=== PATIENT | female | born 1965 | race Caucasian/White ===

== ENCOUNTER → 2019-02-10 06:34 | Outpatient (CLI) | payer OTHER, SELFPAY ==
[2019-02-09 16:17] VITALS: BMI 21.6
--- NOTE | 2019-02-10 06:44 | RAD_ITS ---
STUDY: X-RAY CHEST REASON FOR EXAM: Female, 53 years old. Preheart catheter. TECHNIQUE: PA and lateral views of the chest. COMPARISON: Comparison is made with prior examination dated October 06, 2017. FINDINGS: Hyperinflation. The lungs are clear. There is no demonstrated pleural abnormality. Normal size heart. Normal mediastinum and tad. Normal visualized pulmonary arteries. Normal visualized aortic arch and descending thoracic aorta. Normal visualized thoracic spine. Normal visualized ribs, clavicles, and shoulders. There is no demonstrated abnormality of the visualized soft tissue structures of the upper abdomen. RAD/Chest PA and Lateral IMPRESSION: Hyperinflation. The lungs are clear. Electronically Signed: Terence Reich, at 14:27 EDT , Service support ,
[2019-02-10 07:08] LABS: Absolute Lymphocyte Count 1.98 X10^3/ul (0.83-4.51); Absolute Neutrophil Count 3.1 X10^3/uL (2.0-7.7); Basophil# 0.05 X10^3/uL; Basophil% 0.9 % (0-1); Eosinophil# 0.21 X10^3/uL; Eosinophils% 3.6 % (0-5); Hematocrit 41.7 % (37-47); Hemoglobin 14.1 g/dl (12.0-15.0); Lymphocyte # 1.98 X10^3/ul (4.0); Lymphocyte % 34.1 % (19-41); Mean Corp Hgb Conc 33.8 g/gl (32-36); Mean Corpuscular Hgb 33.3 pg (27.0-32.0); Mean Corpuscular Volume 98.6 fL (81-99); Mean Platelet Vol. 10.5 fl (6.2-12.0); Monocyte# 0.48 X10^3/uL; Monocyte% 8.3 % (0-10); Neutrophil # 3.07 X10^3/uL (2.7-7.7); Neutrophil % 52.9 % (47-70); Platelet Count 200 K/mm3 (150-450); RBC Distribution Width CV 12.8 % (11.6-14.6); RBC Distribution Width SD 46.4 fl (35.1-43.9); Red Blood Count 4.23 M/mm3 (4.2-5.4); White Blood Count 5.8 K/mm3 (4.4-11.0)
[2019-02-10 07:09] LABS: POSITIVE COUNT NO; POSITIVE DIFFERENTIAL NO; POSITIVE MORPHOLOGY NO
[2019-02-10 07:15] LABS: International Normalized Ratio 1.1; Prothrombin Time (Protime)PT. 13.7 SECONDS (11.7-14.9)
[2019-02-10 07:16] LABS: Partial Thromboplast Time 35.2 Seconds (24.1-36.2)
[2019-02-10 07:37] LABS: AST(SGOT) 11 U/L (15-37); Alanine Aminotransfer ALT/SGPT 17 U/L (13-56); Albumin, Serum 4.4 g/dL (3.2-5.0); Alkaline Phosphatase 75 U/L (45-117); Anion Gap 4 (5-15); BUN 13 mg/dL (7-18); BUN/Creat Ratio 14.9 RATIO (10-20); Bilirubin, Direct 0.21 mg/dL (0.00-0.30); Calcium,Total 8.8 mg/dL (8.5-10.1); Chloride 108 mmol/L (98-107); Cholesterol 154 mg/dL (200); Creatinine, Serum 0.87 mg/dL (0.55-1.02); EST Glomerular Filtration Rate 72 mL/min (>60); Est Glom Filt Rate - Afr Amer 88 mL/min (>60); Globulin 2.7 g/dL (2.2-4.2); Glucose 87 mg/dL (74-106); High Density Lipoprotein 59 mg/dL; Potassium 3.9 mmol/L (3.5-5.1); Protein, Total 7.1 g/dL (6.4-8.2); Sodium Level 141 mmol/L (136-145); Triglycerides 91 mg/dL; Very Low Density Lipoprotein 18 mg/dL (5-40)
== END ==
PROVIDERS: Referring Provider Internal Medicine Cardiovascular Disease; Visit Provider Internal Medicine Cardiovascular Disease
DX: I25.119 Atherosclerotic heart disease of native coronary artery with unspecified angina pectoris (principal); Z95.5 Presence of coronary angioplasty implant and graft
CPT/HCPCS: 36415; 71046; 80048; 80061; 80076; 85025; 85610; 85730

== ENCOUNTER 2019-02-11 17:15 | Inpatient (IN) | payer OTHER, SELFPAY ==
[2019-02-09 16:17] VITALS: BMI 21.6
[2019-02-11] VITALS (9 sets, daily range): BP systolic 95–109; BP diastolic 58–80; PULSE 67–94; RESP 12–18; TEMP 36.6–36.9; O2SAT 98–100; BMI 23.8; BMI 23.9; BMI 20.9; BMI 21.0
--- NOTE | 2019-02-11 17:46 | EKG12_ITS ---
Test Reason : CP ADMIT Blood Pressure : / mmHG Vent. Rate : 067 BPM Atrial Rate : 067 BPM P-R Int : 122 ms QRS Dur : 098 ms QT Int : 402 ms P-R-T Axes : 060 080 062 degrees QTc Int : 424 ms Normal sinus rhythm Normal ECG When compared with ECG of 07-OCT-2017 05:03, No significant change was found Confirmed by MICHAEL MCGREGOR, DORINA ([id number]), editor producer MARV ARMSTRONG ([id number]) on 02/23/2019 2:54:25 PM Referred By: Brannon Lieberman Confirmed By:DORINA RODRIGUEZ MD
--- NOTE | 2019-02-11 17:46 | CT_ITS ---
STUDY: CTA CHEST REASON FOR EXAM: Female, 53 years old. Chest pain RADIATION DOSAGE (If Supplied By Facility): CTDIvol = ( 10.01 ) mGy, DLP = ( 210.35 ) mGycm TECHNIQUE: The examination was performed with the intravenous administration of 75CC IV Isovue 370. Post-processing of the angiographic images was performed, with multiplanar reformation and 3D reconstruction. Individualized dose optimization techniques were used for this CT. COMPARISON: None. FINDINGS: Normal enhancement of the main pulmonary artery and right and left pulmonary arteries. Normal enhancement of the bilateral peripheral pulmonary arteries. There is no demonstrated pulmonary embolism. Normal thoracic aorta and visualized great vessels. There is no demonstrated aortic dissection. Normal heart and pericardium. Normal mediastinum. Normal hilar regions. Normal visualized trachea and bronchi. The lungs are well expanded. Biapical scarring is present. There is no consolidation. Normal pleura. Normal chest wall structures. Normal osseous structures. Normal visualized upper abdomen. CT/CTA Chest W/WO Contrast IMPRESSION: No evidence of pulmonary embolism. Biapical scarring. Electronically Signed: Mendel Ram, at 18:57 EDT Tel , Service support ,
--- NOTE | 2019-02-11 17:55 | ED.VISSUMM ---
- ER Visit Summary Date of Service: 02/11/19 Chief Complaint: Chest pain History of Present Illness: The patient is a 53 F who presents with chest pain and back pain that began today. Patient states she woke up with the pain. Patient admits to some nausea but denies any vomiting. Patient states the pain is similar to the pain she had before her stent was placed. Patient states she had a negative stress test back in September but is scheduled for a cardiac catheterization 1 week from today. Patient was recently started on Plavix and metoprolol. Patient admits to some melena. Patient admits to some shortness of breath with exertion and diaphoresis. Patient also admits to some lightheadedness and palpitations. Patient describes her chest pain as a heaviness. Patient states the pain radiates into her back. Physical Examination: Vital signs are stable. Patient is afebrile. Patient is in no acute distress. Oral mucosa is pink and moist. Neck is supple. Trachea is midline. There is no JVD noted. Heart was regular rate and rhythm. Lungs are clear and equal bilaterally. Abdomen is soft. Bowel sounds are normal. Cranial nerves II through XII are intact. There are no focal motor or sensory deficits noted. Rectal exam showed good sphincter tone. There is dark stool. Hemoccult was negative. Test Results: EKG showed normal sinus rhythm with a rate of 94. There are no acute ST or T wave changes. This was unchanged compared to previous EKG dated 02/09/2019. CBC showed a hemoglobin 11.8 and hematocrit 35.9. BUN was elevated at 48. Troponin was normal. CTA of the chest was obtained. There is no evidence of PE. Emergency Department Course and Treatment: Aspirin was withheld initially because of the possible gastrointestinal bleeding. Patient was subsequently given aspirin. Patient was feeling better on reevaluation. Case was discussed with Dr. Joseph. He did not want any further medications adjusted at this time. He will see the patient in the hospital. Case was discussed with the hospitalist. He will admit the patient for observation. Disposition: Admit to hospital Impression: Chest pain This note was generated with OpenSesame dictation software. It may contain incorrect words, spelling, and punctuation that were not noted in review of the chart prior to signing ED Disposition - Plan for ED Patient: Disposition: Acute Care Hospital [facility] Diagnosis: Chest pain Referrals: Martir Meeks MD [Primary Care Provider] -
--- NOTE | 2019-02-11 17:58 | ED.DCSUM_ITS ---
- ER Visit Summary Date of Service: 02/11/19 Chief Complaint: Chest pain History of Present Illness: The patient is a 53 F who presents with chest pain and back pain that began today. Patient states she woke up with the pain. Patient admits to some nausea but denies any vomiting. Patient states the pain is similar to the pain she had before her stent was placed. Patient states she had a negative stress test back in September but is scheduled for a cardiac catheterization 1 week from today. Patient was recently started on Plavix and metoprolol. Patient admits to some melena. Patient admits to some shortness of breath with exertion and diaphoresis. Patient also admits to some lightheadedness and palpitations. Patient describes her chest pain as a heaviness. Patient states the pain radiates into her back. Physical Examination: Vital signs are stable. Patient is afebrile. Patient is in no acute distress. Oral mucosa is pink and moist. Neck is supple. Trachea is midline. There is no JVD noted. Heart was regular rate and rhythm. Lungs are clear and equal bilaterally. Abdomen is soft. Bowel sounds are normal. Cranial nerves II through XII are intact. There are no focal motor or sensory deficits noted. Rectal exam showed good sphincter tone. There is dark stool. Hemoccult was negative. Test Results: EKG showed normal sinus rhythm with a rate of 94. There are no acute ST or T wave changes. This was unchanged compared to previous EKG dated 02/09/2019. CBC showed a hemoglobin 11.8 and hematocrit 35.9. BUN was elevated at 48. Troponin was normal. CTA of the chest was obtained. There is no evidence of PE. Emergency Department Course and Treatment: Aspirin was withheld initially because of the possible gastrointestinal bleeding. Patient was subsequently given aspirin. Patient was feeling better on reevaluation. Case was discussed with Dr. Joseph. He did not want any further medications adjusted at this time. He will see the patient in the hospital. Case was discussed with the hospitalist. He will admit the patient for observation. Disposition: Admit to hospital Impression: Chest pain This note was generated with Advisity dictation software. It may contain incorrect words, spelling, and punctuation that were not noted in review of the chart prior to signing ED Disposition - Plan for ED Patient: Disposition: Acute Care Hospital [facility] Diagnosis: Chest pain Referrals: Martir Meeks MD [Primary Care Provider] -
[2019-02-11] MEDS: Nitroglycerin SL (ED/IMG/CATH) 0.4 MG TABLET SUBLINGUAL (18:00)
[2019-02-11 18:06] LABS: Prothrombin Time (Protime)PT. 13.3 SECONDS (11.7-14.9)
[2019-02-11 18:07] LABS: Partial Thromboplast Time 31.2 Seconds (24.1-36.2)
[2019-02-11 18:11] LABS: Absolute Lymphocyte Count 2.59 X10^3/ul (0.83-4.51); Absolute Neutrophil Count 4.6 X10^3/uL (2.0-7.7); Anion Gap 5 (5-15); BUN 48 mg/dL (7-18); BUN/Creat Ratio 56.5 RATIO (10-20); Basophil# 0.02 X10^3/uL; Basophil% 0.3 % (0-1); Calcium,Total 8.4 mg/dL (8.5-10.1); Chloride 110 mmol/L (98-107); Creatinine, Serum 0.85 mg/dL (0.55-1.02); EST Glomerular Filtration Rate 74 mL/min (>60); Eosinophil# 0.09 X10^3/uL; Eosinophils% 1.2 % (0-5); Est Glom Filt Rate - Afr Amer 90 mL/min (>60); Estimated Creatinine Clearance 77.21 ml/min; Glucose 106 mg/dL (74-106); Hematocrit 35.9 % (37-47); Hemoglobin 11.8 g/dl (12.0-15.0); Lymphocyte # 2.59 X10^3/ul (4.0); Lymphocyte % 33.2 % (19-41); Mean Corp Hgb Conc 32.9 g/gl (32-36); Mean Corpuscular Hgb 31.8 pg (27.0-32.0); Mean Corpuscular Volume 96.8 fL (81-99); Mean Platelet Vol. 10.9 fl (6.2-12.0); Monocyte# 0.48 X10^3/uL; Monocyte% 6.2 % (0-10); POSITIVE COUNT NO; POSITIVE DIFFERENTIAL NO; POSITIVE MORPHOLOGY NO; Platelet Count 200 K/mm3 (150-450); Potassium 4.1 mmol/L (3.5-5.1); RBC Distribution Width CV 12.2 % (11.6-14.6); RBC Distribution Width SD 41.9 fl (35.1-43.9); Red Blood Count 3.71 M/mm3 (4.2-5.4); Sodium Level 141 mmol/L (136-145); White Blood Count 7.8 K/mm3 (4.4-11.0)
[2019-02-11] MEDS: Aspirin 81 MG TAB.CHEW 324 MG PO (20:53)
--- NOTE | 2019-02-11 21:05 | PCM.HP.STD ---
Problem List (1) Presence of stent in coronary artery Status: Chronic Comment: PTCA/RON to LAD 02/27/16 (2) Atherosclerotic heart disease of [place] coronary artery without angina pectoris Status: Chronic Qualifiers: [place] vs. transplanted heart: [place] heart Qualified Code(s): I25.10 - Atherosclerotic heart disease of [place] coronary artery without angina pectoris (3) Chronic pain Status: Acute (4) Chest pain Status: Acute History of Present Illness Date of Admission: 02/11/19 Chief Complaint: Chest pain and shortness of breath The patient is a 53 year old F with history of coronary artery disease status post PCI and stent about 3 years ago in outside hospital came to ER with chest pain shortness of breath that started today. Patient describes chest heaviness like elephant sitting on the chest with radiation to neck along with shortness of breath. She is more symptomatic of shortness of breath no chest pain. She also complained of back pain, upper which is new for her. These were associated with dizziness, lightheadedness and feeling of weakness. Dyspnea on exertion present. She had negative stress test in September 2018. She was recently changed from Brilinta to Plavix and metoprolol. Patient had tarry black stool after she came to ER. Stool for occult blood negative. In ED, EKG shows normal sinus rhythm at [address]-T changes with no significant change from previous EKG of October 07, 2018. The blood work shows mild chronic anemia with no significant change from previous lab [] Past Medical History Past Medical History (Chronic Problems): Chronic Problems (Last Reviewed 02/09/19 @ 16:11 by Kelley Yao) Presence of stent in coronary artery (Chronic ~02/27/16) PTCA/RON to LAD 02/27/16 Atherosclerotic heart disease of [place] coronary artery without angina pectoris (Chronic) Medical History: Medical History (Last Reviewed 02/09/19 @ 16:11 by Kelley Yao) Atherosclerotic heart disease of [place] coronary artery without angina pectoris (Chronic) I25.10 Chronic pain (Acute) G89.29 Chest pain (Acute) R07.9 CAD (coronary artery disease) (Inactive) I25.10 Allergies No Known Allergies Allergy (Verified 02/11/19 17:24) Home Medications: Ambulatory Orders Medication Instructions Recorded Aspirin [Adult Low Dose Aspirin EC] 81 mg PO DAILY 12/08/16 Clopidogrel Bisulfate [Clopidogrel] 75 mg PO DAILY 02/11/19 Metoprolol Tartrate [Lopressor 25 mg PO BID 02/11/19 (beta brijesh)] Surgical History: Surgical History (Last Reviewed 02/09/19 @ 16:11 by Kelley Yao) Presence of stent in coronary artery (Chronic) Onset Date: ~02/27/16 Z95.5 PTCA/RON to LAD 02/27/16 Presence of coronary angioplasty implant and graft Onset Date: ~02/27/16 Z95.5 PTCA/RON to LAD 02/27/16 History of breast augmentation Z98.82 History of oophorectomy, unilateral Z90.721 S/P PTCA (percutaneous transluminal coronary angioplasty) (Inactive) Z98.61 Smoking Status: Never smoker Tobacco Use: Secondhand - *Family History Maternal Family History: Family History (Last Reviewed 02/09/19 @ 16:11 by Kelley Yao) Mother Heart disease History Items: No pertinent history Review of Systems Constitutional: Denies: Chills, Fever, Weight Change HEENT: Reports: - - Sore throat. Denies: Head Aches, Sinus Congestion, Sinus Drainage Cardiovascular: Reports: Chest Pain, Chest Pressure, Light Headedness. Denies: Edema, Palpitations Respiratory: Denies: Cough, Shortness of breath at rest, Sputum production Gastrointestinal: Denies: Abdominal Pain, Nausea, Vomiting Genitourinary: Denies: Dysuria, Frequency, Nocturia, Retention Musculoskeletal: Reports: Back Pain. Denies: Joint Pain, Joint Tenderness Skin: Denies: Rash, Wounds Neurological: Denies: Numbness, Tingling, Focal weakness Psychiatric: Denies: Anxiety, Depression, Homicidal Ideations, Suicidal Ideations Hematologic/ Lymphatic: Denies: Easy Bruising, Easy Bleeding VTE Information - Inpt Only VTE Present on Admission: No VTE Mechan Device Prophylaxis: None VTE Pharm Prophylaxis ordered?: Yes Patient Problems: Active and Suspected Problems (Last Reviewed 02/09/19 @ 16:11 by Kelley Yao) Chest pain (Acute) - Physical Exam General: Alert, Oriented x3, Cooperative HEENT: Atraumatic, PERRLA, EOMI, Normocephalic Oral: No Gingival or Mucosal Lesions/ Ulcerations, - - No oropharyngeal inflammation or ulcer noticed Neck: Supple, No JVD, Negative Carotid Bruits Lungs: Clear to auscultation, Normal air movement Cardiovascular: Regular rate, Regular Rhythm, Normal S1, Normal S2, No murmurs Abdomen: Bowel Sounds Present, Soft, Non Tender, Non-Distended Extremities: No edema, Capillary Refill Less than 3 Seconds Skin: No rashes, No breakdown Musculoskeletal: No Tenderness to Palpation of Joints or Extremities Neurological: Cranial nerves II-XII grossly intact Psych/Mental Status: Normal Affect, Appropriate Vital Signs Temp Pulse Resp BP Pulse Ox 98 F 75 14 95/59 L 99 02/11/19 17:20 02/11/19 21:01 02/11/19 21:01 02/11/19 21:01 02/11/19 21:01 Oxygen Delivery Method Room Air Weight: 157 lb 3.033 oz Body Mass Index (BMI) 23.8 Microbiology Past 72 Hours 02/11/19 19:34 Stool Occult Blood (PRINCESS) - Final Stool Laboratory Tests Past 24 Hrs 02/11/19 02/11/19 02/11/19 17:30 17:30 17:30 WBC 7.8 RBC 3.71 L Hgb 11.8 L Hct 35.9 L MCV 96.8 MCH 31.8 MCHC 32.9 RDW 12.2 RDW Differential 41.9 Plt Count 200 MPV 10.9 Immature Gran % (Auto) 0.100 Neut % (Auto) 59.0 Lymph % (Auto) 33.2 Carbon % (Auto) 6.2 Eos % (Auto) 1.2 Baso % (Auto) 0.3 Absolute Neuts (auto) 4.6 Absolute Lymphs (auto) 2.59 Total Counted Not Reportable PT 13.3 INR 1.0 APTT 31.2 Sodium 141 Potassium 4.1 Chloride 110 H Carbon Dioxide 26.0 Anion Gap 5 BUN 48 H Creatinine 0.85 Estim Creat Clear Calc 77.21 Est GFR (MDRD) Af Amer 90 Est GFR (MDRD) Non-Af 74 BUN/Creatinine Ratio 56.5 H Glucose 106 Calcium 8.4 L Troponin I < 0.015 Assessment/Plan All Active Problems (Last Reviewed 02/09/19 @ 16:11 by Kelley Yao) Chronic pain (Acute) Chest pain (Acute) The patient is a 53 year old F with history of coronary artery disease status post PCI and stent about 3 years ago in outside hospital came to ER with chest pain shortness of breath that started today. Patient describes chest heaviness like elephant sitting on the chest with radiation to neck along with shortness of breath. She is more symptomatic of shortness of breath no chest pain. She also complained of back pain, upper which is new for her. These were associated with dizziness, lightheadedness and feeling of weakness. Dyspnea on exertion present. She had negative stress test in September 2018. She was recently changed from Brilinta to Plavix and metoprolol. Patient had tarry black stool after she came to ER. Stool for occult blood negative. In ED, EKG shows normal sinus rhythm at [address]-T changes with no significant change from previous EKG of October 07, 2018. The blood work shows mild chronic anemia with no significant change from previous lab. 1. Chest pressure with shortness of breath with high suspicion of unstable angina history of coronary artery status post stent: Patient is being admitted in PCU. Cycle troponins. Patient already had negative stress test in September. [employer] has been consulted. Patient is scheduled for cardiac cath next week, therefore most probably will be done tomorrow a.m. Continue aspirin, Plavix and statin. Sublingual nitro as needed for chest pain 2. Black stool: Exact significance unclear: Stool for occult blood negative. H&H is on baseline, 11.1/34.6 on September 2017. Currently 11.8/35.9. INR is normal. Repeat CBC tomorrow morning 3. Chronic low blood pressure: Systolic blood pressure usually stays in 90s. No hypoxia or tachypnea or tachycardia. 4. DVT prophylaxis: Lovenox 40 mg subcu daily Microbiology Past 72 Hours 02/11/19 19:34 Stool Stool Occult Blood (PRINCESS) - Final Clinical Impression(s) from Imaging Studies Chest CTA 02/11/19 17:46 IMPRESSION: No evidence of pulmonary embolism. Biapical scarring. Code Visit OBSV E&M: 35375 Initial observation care L3
--- NOTE | 2019-02-11 21:11 | HP.PCM_ITS ---
Problem List (1) Presence of stent in coronary artery Status: Chronic Comment: PTCA/RON to LAD 02/27/16 (2) Atherosclerotic heart disease of [place] coronary artery without angina pectoris Status: Chronic Qualifiers: [place] vs. transplanted heart: [place] heart Qualified Code(s): I25.10 - Atherosclerotic heart disease of [place] coronary artery without angina pectoris (3) Chronic pain Status: Acute (4) Chest pain Status: Acute History of Present Illness Date of Admission: 02/11/19 Chief Complaint: Chest pain and shortness of breath The patient is a 53 year old F with history of coronary artery disease status post PCI and stent about 3 years ago in outside hospital came to ER with chest pain shortness of breath that started today. Patient describes chest heaviness like elephant sitting on the chest with radiation to neck along with shortness of breath. She is more symptomatic of shortness of breath no chest pain. She also complained of back pain, upper which is new for her. These were associated with dizziness, lightheadedness and feeling of weakness. Dyspnea on exertion present. She had negative stress test in September 2018. She was recently changed from Brilinta to Plavix and metoprolol. Patient had tarry black stool a fter she came to ER. Stool for occult blood negative. In ED, EKG shows normal sinus rhythm at [address]-T changes with no significant change from previous EKG of October 07, 2018. The blood work shows mild chronic anemia with no significant change from previous lab [] Past Medical History Past Medical History (Chronic Problems): Chronic Problems (Last Reviewed 02/09/19 @ 16:11 by Kelley Yao) Presence of stent in coronary artery (Chronic ~02/27/16) PTCA/RON to LAD 02/27/16 Atherosclerotic heart disease of [place] coronary artery without angina pectoris (Chronic) Medical History: Medical History (Last Reviewed 02/09/19 @ 16:11 by Kelley Yao) Atherosclerotic heart disease of [place] coronary artery without angina pectoris (Chronic) I25.10 Chronic pain (Acute) G89.29 Chest pain (Acute) R07.9 CAD (coronary artery disease) (Inactive) I25.10 Allergies No Known Allergies Allergy (Verified 02/11/19 17:24) Home Medications: Ambulatory Orders Medication Instructions Recorded Aspirin [Adult Low Dose Aspirin EC] 81 mg PO DAILY 08/30/16 Clopidogrel Bisulfate [Clopidogrel] 75 mg PO DAILY 02/11/19 Metoprolol Tartrate [Lopressor 25 mg PO BID 02/11/19 (beta brijesh)] Surgical History: Surgical History (Last Reviewed 02/09/19 @ 16:11 by Kelley Yao) Presence of stent in coronary artery (Chronic) Onset Date: ~02/27/16 Z95.5 PTCA/RON to LAD 02/27/16 Presence of coronary angioplasty implant and graft Onset Date: ~02/27/16 Z95.5 PTCA/RON to LAD 02/27/16 History of breast augmentation Z98.82 History of oophorectomy, unilateral Z90.721 S/P PTCA (percutaneous transluminal coronary angioplasty) (Inactive) Z98.61 Smoking Status: Never smoker Tobacco Use: Secondhand - *Family History Maternal Family History: Family History (Last Reviewed 02/09/19 @ 16:11 by Kelley Yao) Mother Heart disease History Items: No pertinent history Review of Systems Constitutional: Denies: Chills, Fever, Weight Change HEENT: Reports: - - Sore throat. Denies: Head Aches, Sinus Congestion, Sinus Drainage Cardiovascular: Reports: Chest Pain, Chest Pressure, Light Headedness. Denies: Edema, Palpitations Respiratory: Denies: Cough, Shortness of breath at rest, Sputum production Gastrointestinal: Denies: Abdominal Pain, Nausea, Vomiting Genitourinary: Denies: Dysuria, Frequency, Nocturia, Retention Musculoskeletal: Reports: Back Pain. Denies: Joint Pain, Joint Tenderness Skin: Denies: Rash, Wounds Neurological: Denies: Numbness, Tingling, Focal weakness Psychiatric: Denies: Anxiety, Depression, Homicidal Ideations, Suicidal Ideations Hematologic/ Lymphatic: Denies: Easy Bruising, Easy Bleeding VTE Information - Inpt Only VTE Present on Admission: No VTE Mechan Device Prophylaxis: None VTE Pharm Prophylaxis ordered?: Yes Patient Problems: Active and Suspected Problems (Last Reviewed 02/09/19 @ 16:11 by Kelley Yao) Chest pain (Acute) - Physical Exam General: Alert, Oriented x3, Cooperative HEENT: Atraumatic, PERRLA, EOMI, Normocephalic Oral: No Gingival or Mucosal Lesions/ Ulcerations, - - No oropharyngeal inflammation or ulcer noticed Neck: Supple, No JVD, Negative Carotid Bruits Lungs: Clear to auscultation, Normal air movement Cardiovascular: Regular rate, Regular Rhythm, Normal S1, Normal S2, No murmurs Abdomen: Bowel Sounds Present, Soft, Non Tender, Non-Distended Extremities: No edema, Capillary Refill Less than 3 Seconds Skin: No rashes, No breakdown Musculoskeletal: No Tenderness to Palpation of Joints or Extremities Neurological: Cranial nerves II-XII grossly intact Psych/Mental Status: Normal Affect, Appropriate Vital Signs Temp Pulse Resp BP Pulse Ox 98 F 75 14 95/59 L 99 02/11/19 17:20 02/11/19 21:01 02/11/19 21:01 02/11/19 21:01 02/11/19 21:01 Oxygen Delivery Method Room Air Weight: 157 lb 3.033 oz Body Mass Index (BMI) 23.8 Microbiology Past 72 Hours 02/11/19 19:34 Stool Occult Blood (PRINCESS) - Final Stool Laboratory Tests Past 24 Hrs 02/11/19 02/11/19 02/11/19 17:30 17:30 17:30 WBC 7.8 RBC 3.71 L Hgb 11.8 L Hct 35.9 L MCV 96.8 MCH 31.8 MCHC 32.9 RDW 12.2 RDW Differential 41.9 Plt Count 200 MPV 10.9 Immature Gran % (Auto) 0.100 Neut % (Auto) 59.0 Lymph % (Auto) 33.2 Lewis % (Auto) 6.2 Eos % (Auto) 1.2 Baso % (Auto) 0.3 Absolute Neuts (auto) 4.6 Absolute Lymphs (auto) 2.59 Total Counted Not Reportable PT 13.3 INR 1.0 APTT 31.2 Sodium 141 Potassium 4.1 Chloride 110 H Carbon Dioxide 26.0 Anion Gap 5 BUN 48 H Creatinine 0.85 Estim Creat Clear Calc 77.21 Est GFR (MDRD) Af Amer 90 Est GFR (MDRD) Non-Af 74 BUN/Creatinine Ratio 56.5 H Glucose 106 Calcium 8.4 L Troponin I < 0.015 Assessment/Plan All Active Problems (Last Reviewed 02/09/19 @ 16:11 by Kelley Yao) Chronic pain (Acute) Chest pain (Acute) The patient is a 53 year old F with history of coronary artery disease status post PCI and stent about 3 years ago in outside hospital came to ER with chest pain shortness of breath that started today. Patient describes chest heaviness like elephant sitting on the chest with radiation to neck along with shortness of breath. She is more symptomatic of shortness of breath no chest pain. She also complained of back pain, upper which is new for her. These were associated with dizziness, lightheadedness and feeling of weakness. Dyspnea on exertion present. She had negative stress test in September 2018. She was recently changed from Brilinta to Plavix and metoprolol. Patient had tarry black stool after she came to ER. Stool for occult blood negative. In ED, EKG shows normal sinus rhythm at [address]-T changes with no significant change from previous EKG of October 07, 2018. The blood work shows mild chronic anemia with no significant change from previous lab. 1. Chest pressure with shortness of breath with high suspicion of unstable ang jessica history of coronary artery status post stent: Patient is being admitted in PCU. Cycle troponins. Patient already had negative stress test in September. [employer] has been consulted. Patient is scheduled for cardiac cath next week, therefore most probably will be done tomorrow a.m. Continue aspirin, Plavix and statin. Sublingual nitro as needed for chest pain 2. Black stool: Exact significance unclear: Stool for occult blood negative. H&H is on baseline, 11.1/34.6 on September 2017. Currently 11.8/35.9. INR is normal. Repeat CBC tomorrow morning 3. Chronic low blood pressure: Systolic blood pressure usually stays in 90s. No hypoxia or tachypnea or tachycardia. 4. DVT prophylaxis: Lovenox 40 mg subcu daily Microbiology Past 72 Hours 02/11/19 19:34 Stool Stool Occult Blood (PRINCESS) - Final Clinical Impression(s) from Imaging Studies Chest CTA 02/11/19 17:46 IMPRESSION: No evidence of pulmonary embolism. Biapical scarring. Code Visit OBSV E&M: 43666 Initial observation care L3
--- NOTE | 2019-02-11 21:23 | EKG12_ITS ---
Test Reason : CP Blood Pressure : / mmHG Vent. Rate : 094 BPM Atrial Rate : 094 BPM P-R Int : 132 ms QRS Dur : 076 ms QT Int : 328 ms P-R-T Axes : 078 086 065 degrees QTc Int : 410 ms Normal sinus rhythm Biatrial enlargement Nonspecific ST abnormality Abnormal ECG Confirmed by FRANC BARDALES ([id number]), video effects editor ANTONIETA BARBOSA ([id number]) on 02/19/2019 8:58:15 AM Referred By: Brannon Lieberman Confirmed By:FRANC BARDALES
[2019-02-11] MEDS: 0.9% Normal Saline 1,000 ML 100 ML IV (21:49)
[2019-02-12] VITALS (25 sets, daily range): BP systolic 83–136; BP diastolic 38–96; PULSE 68–122; RESP 12–22; TEMP 36.8–37.4; O2SAT 97–100
--- NOTE | 2019-02-12 | GASB_PTH ---
PATIENT: DARIUS DUNBAR LOC: [facility] U#:[id number] AGE/SX: 53/F ROOM: [facility] RE02/13/[address]: Dr. Baljit West MD : 1965 BED: 1 DIS: 02/15/2019 SPEC #: [id number] RECD: 02/12/19 13:02 STATUS: SONU SELLERS #: [id number] AMBERLY: 02/12/19 00:[address]: Remberto Espitia DEPT: SURGICAL PATHOLOGY RECD BY: Lemuel Burnett ENTERED: 02/12/19 13:03 SP TYPE: Gastric Bx OTHR DR: MD Dr. Jose Rudolph MD Dr. Daniel Peabody, MD Dr. Prakash Chand, MD Dr. Victor Velasquez, MD Tissues: Gastric mucous membrane Procedures: Surgery Specimen Level IV Comments: @ Ordering doctor for SUIV edited from to @ nguyễn WALTON at 02/12/19 1416 @ Submitting doctor edited from to @ by ANTON at 02/12/19 1416 HEADER OPERATION: EGD ([facility]) PRE-OP DIAGNOSIS: Anemia; black, tarry stools TISSUE SUBMITTED: Antral biopsy for H. pylori and path MICROSCOPIC DIAGNOSIS Gastric antral biopsy: Chronic gastritis. AM:geneva 02/13/19 COMMENT The results of immunohistochemistry for Helicobacter pylori will be reported separately ([id number]). MICROSCOPIC DESCRIPTION Slides are reviewed. GROSS DESCRIPTION Received in fixative is one container labeled with the patient's name and designated antral biopsy. The specimen consists of one irregular fragment of light lindsay soft tissue that measures 0.4 x 0.1 x 0.1 cm. The specimen is totally submitted in one cassette. / CE:geneva 02/12/19 TC:3 CPT: [id number]
[2019-02-12 00:28] LABS: Bacteria 0 SEEN /hpf (None Seen); Mucous, Urine 0 SEEN /hpf (<or=2+); Red Blood Cells-Urine 0 SEEN /hpf (0-5); Squamous Epithelial Cells - UA 0 SEEN /hpf (5-10); White Blood Cells 0 SEEN /hpf (0-5)
[2019-02-12 00:34] LABS: Color, Urine Yellow (Yellow); Glucose, Dipstick Normal (Normal); Ketone-Dipstick Negative (Negative); Leukocyte Esterase-Dipstick Negative /ul (Negative); Nitrite-Dipstick Negative (Negative); Occult Blood-Urine Negative /ul (Negative); Protein-Dipstick Negative (Negative); Urine Bilirubin Dipstick Negative (Negative); Urine Clarity Clear (Clear); Urine Urobilinogen Normal (Normal)
[2019-02-12 00:37] LABS: Internal QC Validated? YES +Cl - CLEAR BKGD; Pregnancy, Urine Negative Negative
[2019-02-12] MEDS: ALPRAZolam 0.5 MG Tablet PO (02:44)
[2019-02-12 04:02] LABS: Hematocrit 28.1 % (37-47); Mean Corpuscular Hgb 31.4 pg (27.0-32.0); Mean Corpuscular Volume 97.9 fL (81-99); Mean Platelet Vol. 10.6 fl (6.2-12.0); Platelet Count 173 K/mm3 (150-450); RBC Distribution Width CV 12.2 % (11.6-14.6); RBC Distribution Width SD 41.8 fl (35.1-43.9); Red Blood Count 2.87 M/mm3 (4.2-5.4); Scan Indicated on CBC? Y/N NO; White Blood Count 7.1 K/mm3 (4.4-11.0)
[2019-02-12 04:09] LABS: International Normalized Ratio 1.2; Prothrombin Time (Protime)PT. 14.7 SECONDS (11.7-14.9)
[2019-02-12 04:10] LABS: Partial Thromboplast Time 33.3 Seconds (24.1-36.2)
[2019-02-12 04:43] LABS: Anion Gap 6 (5-15); BUN 49 mg/dL (7-18); Calcium,Total 7.7 mg/dL (8.5-10.1); Chloride 115 mmol/L (98-107); Cholesterol 103 mg/dL (200); Creatinine, Serum 0.64 mg/dL (0.55-1.02); EST Glomerular Filtration Rate 102 mL/min (>60); Est Glom Filt Rate - Afr Amer 124 mL/min (>60); Estimated Creatinine Clearance 100.62 ml/min; Glucose 103 mg/dL (74-106); High Density Lipoprotein 36 mg/dL; Sodium Level 144 mmol/L (136-145); Thyroid Stim Hormone (TSH) 0.94 uIU/mL (0.358-3.74); Triglycerides 137 mg/dL; Very Low Density Lipoprotein 27 mg/dL (5-40)
[2019-02-12] MEDS: proMETHazine 25 MG/ML Syringe 12.5 MG IV ×2 (04:49→12:03)
--- NOTE | 2019-02-12 05:55 | EKG12_ITS ---
Test Reason : AM EKG Blood Pressure : / mmHG Vent. Rate : 097 BPM Atrial Rate : 097 BPM P-R Int : 112 ms QRS Dur : 080 ms QT Int : 330 ms P-R-T Axes : 072 084 070 degrees QTc Int : 419 ms Normal sinus rhythm Right atrial enlargement Nonspecific ST abnormality Abnormal ECG When compared with ECG of 11-FEB-2019 21:59, MANUAL COMPARISON REQUIRED, DATA IS UNCONFIRMED Confirmed by MICHAEL MCGREGOR, DORINA ([id number]), video tape editor MARV ARMSTRONG ([id number]) on 02/18/2019 12:10:08 PM Referred By: Brannon Lieberman Confirmed By:DORINA RODRIGUEZ MD
--- NOTE | 2019-02-12 05:55 | RAD_ITS ---
STUDY: X-RAY CHEST REASON FOR EXAM: Female, 53 years old. Shortness of breath. Preop TECHNIQUE: 1 view COMPARISON: 02/10/2019 FINDINGS: The lungs are clear and expanded. There is no demonstrated pleural abnormality. Normal size heart. Normal mediastinum and tad. Normal visualized pulmonary arteries. Normal visualized aortic arch and descending thoracic aorta. Normal visualized thoracic spine. Normal visualized ribs, clavicles, and shoulders. There is no demonstrated abnormality of the visualized soft tissue structures of the upper abdomen. RAD/Chest 1 View (Portable) IMPRESSION: Normal x-ray examination of the chest. No acute findings in the lungs. Not much change since yesterday's study Electronically Signed: Brad Watson MD at 6:48 EDT Tel , Service support ,
[2019-02-12] MEDS: Acetaminophen 325 MG Tablet 650 MG PO (06:07)
[2019-02-12] MEDS: Aspirin E.C. 81 MG Tablet PO (06:07)
[2019-02-12] MEDS: Clopidogrel Bisulfate 75 MG Tablet PO (06:08)
--- NOTE | 2019-02-12 09:58 | ECHOD_ITS ---
Reason For Study: CAD/ASHD Procedure This was a 2D Doppler, Color Flow transthoracic echocardiogram. The study was technically difficult. Exam performed portable in patient room. Left Ventricle Normal LV size. Left ventricular systolic function is normal. The estimated ejection fraction is 65 %. No evidence for diastolic dysfunction. No regional wall motion abnormalities noted. Right Ventricle Normal RV size. Normal systolic function. Atria Normal left atrium. Normal right atrium. No doppler evidence for ASD. Mitral Valve There is no mitral annular calcification. Anterior leaflet diffuse mitral valve thickening. Trivial eccentric mitral valve insufficiency. Tricuspid Valve Normal tricuspid valve. Trivial tricuspid valve insufficiency. Right ventricular systolic pressure estimated to be 36 mmHg. Aortic Valve Trisinus/trileaflet aortic valve. Normal aortic valve. Pulmonic Valve The pulmonic valve is not well visualized. Great Vessels Normal sized aortic root. Pericardium/Pleural No pericardial effusion. MMode/2D Measurements & Calculations LVIDd: 4.5 cm IVSd: 0.73 cm Ao root diam: 3.0 cm LVIDs: 2.7 cm LVPWd: 0.76 cm RVDd: 3.0 cm FS: 40.6 % LAV(MOD-bp): 32.2 ml LA A4 area: 12.4 cm2 LA dimension(2D): 2.9 cm LAV(MOD-bp) Indexed: 18.4 ml/m2 LAV(MOD-sp2): 32.1 ml LAV(MOD-sp4): 29.1 ml RA A4 area: 11.5 cm2 Time Measurements MV dec time: 0.23 sec Doppler Measurements & Calculations MV E max berto: 107.6 cm/sec Lat Peak E' Berto: 13.3 cm/sec Med Peak E' Berto: 12.7 cm/sec MV A max berto: 75.8 cm/sec E/E' lat: 8.1 E/E' med: 8.5 MV E/A: 1.4 MV P1/2t max berto: 134.3 cm/sec Ao V2 max: 136.4 cm/sec LV V1 max: 119.8 cm/sec MV P1/2t: 65.7 msec Ao max P.4 mmHg LV V1 max P.7 mmHg MV dec slope: 599.0 cm/sec2 MVA(P1/2t): 3.4 cm2 PA V2 max: 94.4 cm/sec TR max berto: 288.7 cm/sec TR max P.3 mmHg Interpretation Summary The study was technically difficult. Left ventricular systolic function is normal. The estimated ejection fraction is 65 %. Anterior leaflet diffuse mitral valve thickening. Trivial eccentric mitral valve insufficiency. Trivial tricuspid valve insufficiency. Right ventricular systolic pressure estimated to be 36 mmHg. No evidence for diastolic dysfunction. Ordering Physician: Fracisco Thao Referring Physician: Brannon Lieberman Performed By: Inna Garcia, CASSIDY, RVT
--- NOTE | 2019-02-12 09:59 | AAVD_ITS ---
Reason For Study: Palpable abdominal stenosis Aorta Measurements Aorta Doppler Measurements Proximal aorta measures1.79 x 1.77cm. in cross- Peak systolic flow velocities within the proximal sectional axis. aorta measure 110.2 cm/sec. Proximal aorta measures1.75cm. in longitudinal Peak systolic flow velocities within the mid aorta axis. measure 110.2 cm/sec. Mid aorta measures1.46 x 1.46cm. in cross- Peak systolic flow velocities within the distal sectional axis. aorta measure 105.8 cm/sec. Mid aorta measures1.41cm. in longitudinal axis. Distal aorta measures1.32 x 1.32cm. in cross- sectional axis. Distal aorta measures1.29cm. in longitudinal axis. Left Iliac Artery Left iliac artery measures 0.75 x 0.73 cm. in the cross-sectional axis. Left iliac artery measures 0.76 cm. in the longitudinal axis. Peak systolic velocity in the left iliac artery measures 183.8 cm/sec. Right Iliac Artery Right iliac artery measures 0.61 x 0.59 cm. in the cross-sectional axis. Right iliac artery measures 0.65 cm. in the longitudinal axis. Peak systolic velocity in the right iliac artery measures 155.3 cm/sec. Procedure Aorta IVC Iliac vasculature or bypass grafts [id number]. Exam performed portable in patient room. Interpretation Summary Maximal aortic diameter proximally 1.79 x 1.77cm Minimally elevated aortic velocity at just above 100cm/sec consistent with mild disease Left common iliac 0.73 x 0.73 cm with mild disease Right common iliac 0.61 x 0.59cm with mild disease Ordering Physician: Fracisco Thao Referring Physician: Martir Meeks M.D. Performed By: Charla Oliver RVT
--- NOTE | 2019-02-12 10:01 | PCM.CONS.C ---
Problem List (1) Chest pain Status: Acute (2) CAD (coronary artery disease) Status: Chronic Qualifiers: Coronary Disease-Associated Artery/Lesion type: [place] artery [place] vs. transplanted heart: [place] heart (3) Presence of stent in coronary artery Status: Chronic Comment: PTCA/RON to LAD 02/27/16 (4) Melena Status: Acute (5) Anemia Status: Acute (6) Palpable abdominal aorta Status: Acute Reason for Consult Date of Consultation: 02/12/19 History of Present Illness: The patient is a 53 year old white female with a past medical history of CAD status post previous LAD PCI who presents for evaluation of chest pain as well as abdominal pain, nausea, and black tarry stools compatible with melena and subsequent findings of anemia. The patient was recently evaluated on 02-09-19 for her concerns of recurrent chest discomfort with radiation to the neck and jaw area as well as feeling potentially somewhat more short of breath and dyspneic. At that time she was not complaining of abdominal discomfort nor was she having nausea or emesis or diaphoresis. There was no report of orthopnea, PND, or peripheral pitting edema. There was no near syncope or syncope. She stated she had not taken any nitroglycerin supplement secondary to concerns of migraine headaches. She thought her symptoms were somewhat reminiscent of symptoms she had prior to her previous diagnosis of CAD and subsequent PCI. Status post review of her case it was elected proceed with further evaluation with both noninvasive and invasive studies with transthoracic echocardiogram to evaluate her left ventricular wall motion systolic function and repeat diagnostic cardiac catheterization to evaluate her coronary anatomy for the need for additional revascularization therapy. She had only been on aspirin therapy as she had discontinued her other cardiovascular medications as she felt she no longer needed them. She was placed back on additional antiplatelet therapy with clopidogrel/Plavix. She was pending reevaluation of her lipid labs for additional lipid-lowering therapy. In the interim she states yesterday she noted not only her chest discomfort with subsequent radiation as noted above as well as feeling short of breath and dyspneic but also abdominal discomfort and nausea. She stated that she had notation of bowel movements that demonstrated black tarry stools. She subsequently elected to present to the hospital for further evaluation and care. She notes since being in the hospital she has had recurrent bowel movements with black tarry stools. In the interim she states she was treated with a nitroglycerin sublingual and she felt somewhat improved without headache. She has undergone evaluation with cardiac enzymes which have been repeated which have been negative. Her ECG is demonstrated sinus rhythm with subtle nonspecific ST segment changes. Her H&H is been followed and has decreased greater than 2 g of hemoglobin. [] Past Medical History Allergies/Adverse Reactions: Allergies No Known Allergies Allergy (Verified 02/11/19 17:24) Home Medications: Ambulatory Orders Medication Instructions Recorded Aspirin [Adult Low Dose Aspirin EC] 81 mg PO DAILY 08/30/16 Clopidogrel Bisulfate [Clopidogrel] 75 mg PO DAILY 02/11/19 Metoprolol Tartrate [Lopressor 25 mg PO BID 02/11/19 (beta brijesh)] Past Medical History (Chronic Problems): Chronic Problems (Last Reviewed 02/09/19 @ 16:11 by Kelley Yao) CAD (coronary artery disease) (Chronic) Presence of stent in coronary artery (Chronic ~02/27/16) PTCA/RON to LAD 02/27/16 Atherosclerotic heart disease of [place] coronary artery without angina pectoris (Chronic) Surgical History: angioplasty - *Family History Maternal Family History: Family History (Last Reviewed 02/09/19 @ 16:11 by Kelley Yao) Mother Heart disease History Items: No pertinent history Smoking Status: Never smoker Tobacco Use: Secondhand Alcohol: None Drugs: None Review of Systems - Review of Systems General: Denies: Fever, Night Sweats, Fatigue Cardiovascular: Reports: Chest Discomfort, Chest Discomfort at Rest, Chest Discomfort with Exertion, Shortness of Breath, Shortness of Breath at Rest. Denies: Orthopnea, PND, Peripheral Edema, Palpitations, Lightheadedness, Dizziness, Near Syncope, Syncope Respiratory: Reports: Shortness of Breath. Denies: Cough, Sputum Production, Hemoptysis Gastrointestinal: Reports: Nausea, Melena. Denies: Hematemesis, Hematochezia Genitourinary: Reports: Dysuria Skin: Denies: Rash Subjectve: This is a thin 53-year-old white female who appears to be resting comfortably at the moment in no acute distress. Objective: Vital Signs Temp Pulse Resp BP Pulse Ox 98.7 F 81 18 96/54 L 99 02/12/19 06:01 02/12/19 07:10 02/12/19 06:01 02/12/19 06:01 02/12/19 06:01 Oxygen Flow Rate (L/min) 2 Oxygen Delivery Method Room Air Weight: 138 lb 3.677 oz Body Mass Index (BMI) 20.9 Intake and Output for Last 24 Hours 02/10/19 02/11/19 02/12/19 23:59 23:59 23:59 Intake Total 511 / 511 540 / 540 Balance 511 / 511 540 / 540 General: Awake, Alert, Oriented x 3, Cooperative, No Acute Distress HEENT: Atraumatic, Normocephalic, PERRL Oral: Moist Mucosa Neck: Supple, Good ROM, No JVD Lungs: Clear to auscultation Cardiovascular: Regular Rhythm, Normal S1, Normal S2 Vascular: No Carotid Bruits, Normal Femoral Pulses, R Femoral Artery Bruit, L Femoral Artery Bruit, Normal Radial Pulses Abdomen: Bowel Sounds Present, Soft, Non Tender, - - Palpable abdominal aorta Extremities: No Cyanosis, No Clubbing, No edema Neurological: No Focal Motor or Sensory Deficit Psych/Mental Status: Appropriate 02/11/19 17:30: WBC 7.8, RBC 3.71 L, Hgb 11.8 L, Hct 35.9 L, MCV 96.8, MCH 31.8, MCHC 32.9, RDW 12.2, RDW Differential 41.9, Plt Count 200, MPV 10.9, Immature Gran % (Auto) 0.100, Neut % (Auto) 59.0, Lymph % (Auto) 33.2, [place] % (Auto) 6.2, Eos % (Auto) 1.2, Baso % (Auto) 0.3, Absolute Neuts (auto) 4.6, Total Counted Not Reportable 02/11/19 17:30: Sodium 141, Potassium 4.1, Chloride 110 H, Carbon Dioxide 26.0, Anion Gap 5, BUN 48 H, Creatinine 0.85, Est GFR (MDRD) Af Amer 90, Est GFR (MDRD) Non-Af 74, BUN/Creatinine Ratio 56.5 H, Glucose 106, Calcium 8.4 L, Troponin I < 0.015 02/11/19 17:30: PT 13.3, INR 1.0, APTT 31.2 02/11/19 21:30: Troponin I < 0.015 02/11/19 23:45: Urine Color Yellow, Urine Clarity Clear, Urine pH 7.0, Ur Specific [place] 1.010, Urine Protein Negative, Urine Glucose (UA) Normal, Urine Ketones Negative, Urine Occult Blood Negative, Urine Nitrite Negative, Urine Bilirubin Negative, Urine Urobilinogen Normal, Ur Leukocyte Esterase Negative, Urine RBC 0 SEEN, Urine WBC 0 SEEN 02/12/19 00:05: Troponin I < 0.015 02/12/19 03:40: Sodium 144, Potassium 4.0, Chloride 115 H, Carbon Dioxide 23.0, Anion Gap 6, BUN 49 H, Creatinine 0.64, Est GFR (MDRD) Af Amer 124, Est GFR (MDRD) Non-Af 102, BUN/Creatinine Ratio 76.0 H, Glucose 103, Calcium 7.7 L, Triglycerides 137, Cholesterol 103, LDL Cholesterol 40, VLDL Cholesterol 27, HDL Cholesterol 36 L 02/12/19 03:40: Troponin I < 0.015 02/12/19 03:40: WBC 7.1, RBC 2.87 L, Hgb 9.0 L, Hct 28.1 L, MCV 97.9, MCH 31.4, MCHC 32.0, RDW 12.2, RDW Differential 41.8, Plt Count 173, MPV 10.6 02/12/19 03:40: PT 14.7, INR 1.2, APTT 33.3 Rhythm: Sinus rhythm EKG: Venous rhythm; subtle nonspecific ST segment abnormality ECHO: 10-06-17: Left ventricle normal with an LVEF of 60%; mild MR Stress Test:?15?18: Ramone protocol: 10 minutes and 30 seconds: 88% predicted maximal heart rate: Peak blood pressure of 130/78 mmHg: No obvious ECG changes reported: Myocardial perfusion reported as normal: Gated LVEF reported at 75% Cardiac Cath: Cardiac catheterization: 03-08-16: [facility]: Posterobasal: Normal CORONARY FINDINGS * Left Main Coronary Artery The LMCA is normal. * Left Anterior Descending The LAD has a mid 90% stenosis. The 1st diagonal is normal. The small 2nd diagonal has a 70% proximal stenosis. The 3rd diagonal is normal. * Circumflex The Circumflex is non-dominant and is normal. The 1st CM is normal. * Right Coronary Artery The RCA Is a dominant vessel with a proximal 20% stenosis. The RPDA and RPL are normal. ADDITIONAL FINDINGS No aortic stenosis. No mitral regurgitation. COMPLICATIONS N one SUMMARY 1. LV pressure overload. 2. Normal LV systolic function. 3. 1 vessel CAD. 4. Successful implantation of 3.0/26 mm Resolute Integrity RON in mid LAD. Cardiac catheterization: 03-16-16: [facility] ? 50F s/p recent PCI to the LAD (02/27/16) presenting with chest pain LMT: Normal LAD: Patent stent, mild disease of the proximal segment of D2 unchanged from prior cath LCx: Normal RCA: 30% proximal lesion Impression: Patent stent, recommend medical therapy ADVERSE OUTCOME (s) /COMPLICATION (s) None Recommended Treatment: Medical Therapy. PCI: 03-08-16: [facility]: LAD PCI with a 3.0 x 26 mm Resolute Integrity drug-eluting stent CXR: Preliminary evaluation: No acute cardiopulmonary disease process appreciated: Please see official report CTA: Reported as negative for great vessel disease/thromboembolic disease: Please see official report Assessment/Plan 1. Chest pain graph the patient has had chest pain. Her concern is that this is reminiscent of symptoms she had prior to her previous CAD diagnosis and LAD PCI. At the present time there has been concern as to whether or not she is having recurrent angina pectoris. She was placed on medical management with aspirin and antiplatelet therapy. She did not want to initiate glycerin therapy secondary to concerns of migraine headache exacerbation. She was not immediately started on additional medical therapy such as beta blockers. She was due to have fasting lipid profile to reassess her lipid labs although with her history she had been told that ideally she would be on a lipid-lowering agent/statin. She presents now with ongoing symptoms and concerns. She will continue to be monitored. Thus far her cardiac enzymes are negative and her ECG is demonstrated no acute ECG changes. She will proceed with further evaluation with transthoracic echocardiogram to assess her left ventricular wall motion systolic function. Ideally she would proceed with further evaluation with diagnostic cardiac catheterization to assess her coronary anatomy. However there is now a concern based upon her noncardiac symptoms, her melena, and her decreasing H&H as to concerns of possible gastrointestinal bleeding process. Thus she is going to be evaluated by general surgery for consideration for EGD in the interim. Hopefully this will assist in her diagnosis of her noncardiac symptoms, her melena, and her decreasing H&H and also help guide further cardiac evaluation and care. 2. CAD status post LAD PCI-remote Again she will continue to be observed. She will continue medical management as deemed appropriate. She will continue with cardiac evaluation and noncardiac evaluation as noted above. 3. Melena Again she has had episodes of melena. Her H&H is declined. She will undergo evaluation care as noted above. The findings may impact her medical therapy and further cardiac evaluation and care. 4. Anemia Her H&H has decreased. Again she will undergo evaluation care as noted above. However her H&H needs to be followed. If it continues to decrease, especially in light of her cardiovascular history, she may need further care with PRBC transfusion. 5. Palpable abdominal aorta She will undergo screening evaluation for any evidence of abdominal aortic disease with an abdominal ultrasound. Comment: The above was discussed with the patient and her spouse. They are agreeable to this approach. The above was also discussed with Dr. Dasilva of the [facility] staff. This note was generated using a voice recognition system and there may be incorrect words, spelling or punctuation that were not noted when reviewing the office note prior to saving.
--- NOTE | 2019-02-12 10:32 | CON.PCM_ITS ---
Problem List (1) Melena Status: Acute (2) Anemia Status: Acute Reason for Consult Date of Consultation: 02/12/19 Reason for Consultation: Melena. Acute anemia. History of Present Illness: The patient is a 53 year old F who presented with back, neck and chest pain. She also notes shortness of breath and melanotic stools x 1 day. Patient noted she had a myocardial infarction approximately 3 years ago. Patient notes these were the symptoms she had with her previous M.I. She had a stent placement 3 years ago. Patient follows with [facility]. She is recently switched from Brilinta to Plavix. She is also on ASA. Patient denies melanotic stools previous to this episode. She noted 1 episode diarrhea. She noted nausea and vomiting x 1 day. She also notes restless legs. Patient denies vomiting blood. She denies previous upper scope. She notes a colonoscopy in her 40's for change in bowel habits however she is unsure where this was completed at. Past Medical History Past Medical History (Chronic Problems): Chronic Problems (Last Reviewed 02/09/19 @ 16:11 by Kelley Yao) CAD (coronary artery disease) (Chronic) Presence of stent in coronary artery (Chronic ~02/27/16) PTCA/RON to LAD 02/27/16 Atherosclerotic heart disease of [place] coronary artery without angina pectoris (Chronic) Medical History: Medical History (Last Reviewed 02/12/19 @ 10:39 by Alberta Adan PA-C) Atherosclerotic heart disease of [place] coronary artery without angina pectoris (Chronic) I25.10 Chronic pain (Acute) G89.29 Chest pain (Acute) R07.9 CAD (coronary artery disease) (Inactive) I25.10 Allergies No Known Allergies Allergy (Verified 02/11/19 17:24) Home Medications: Ambulatory Orders Medication Instructions Recorded Aspirin [Adult Low Dose Aspirin EC] 81 mg PO DAILY 08/30/16 Clopidogrel Bisulfate [Clopidogrel] 75 mg PO DAILY 02/11/19 Metoprolol Tartrate [Lopressor 25 mg PO BID 02/11/19 (beta brijesh)] Surgical History: Surgical History (Last Reviewed 02/12/19 @ 10:39 by Alberta Adan PA-C) Presence of stent in coronary artery (Chronic) Onset Date: ~02/27/16 Z95.5 PTCA/RON to LAD 02/27/16 Presence of coronary angioplasty implant and graft Onset Date: ~02/27/16 Z95.5 PTCA/RON to LAD 02/27/16 History of breast augmentation Z98.82 History of oophorectomy, unilateral Z90.721 S/P PTCA (percutaneous transluminal coronary angioplasty) (Inactive) Z98.61 Surgical History: angioplasty Smoking Status: Never smoker Tobacco Use: Secondhand Alcohol: None Drugs: None - *Family History Maternal Family History: Family History (Last Reviewed 02/12/19 @ 10:39 by Alberta Adan PA-C) Mother Heart disease History Items: No pertinent history Review of Systems Constitutional: Reports: Anorexia, Weakness, Fatigue HEENT: Denies: Head Aches, Sinus Congestion, Sinus Drainage Cardiovascular: Reports: Chest Pain Respiratory: Reports: Shortness of Breath Gastrointestinal: Reports: Diarrhea, Nausea, Melena, Vomiting. Denies: Abdominal Pain, Hematemesis Genitourinary: Denies: Dysuria Musculoskeletal: Denies: Joint Pain, Joint Tenderness Skin: Denies: Rash, Wounds Neurological: Denies: Numbness, Tingling, Focal weakness Psychiatric: Reports: Anxiety Hematologic/ Lymphatic: Reports: Anemia, Easy Bruising, Easy Bleeding. Denies: Hx of blood clot Patient Problems: Active and Suspected Problems (Last Reviewed 02/09/19 @ 16:11 by Kelley Yao) Melena (Acute) Anemia (Acute) Palpable abdominal aorta (Acute) Chest pain (Acute) - Physical Exam General: Alert, Oriented x3, Cooperative, - - Patient very anxious and restless. She was constantly moving her legs. HEENT: Atraumatic, PERRLA, EOMI, Normocephalic Neck: Supple, No JVD, Negative Carotid Bruits Lungs: Clear to auscultation, Normal air movement Cardiovascular: Regular rate, No murmurs Abdomen: Bowel Sounds Present, Soft, Non Tender, Non-Distended Extremities: No edema, Capillary Refill Less than 3 Seconds Skin: No rashes, No breakdown Musculoskeletal: No Tenderness to Palpation of Joints or Extremities Neurological: Cranial nerves II-XII grossly intact Psych/Mental Status: Anxious, Restless Vital Signs Temp Pulse Resp BP Pulse Ox 98.9 F 90 14 93/51 L 99 02/12/19 10:00 02/12/19 10:02/12/19 10:00 02/12/19 10:00 02/12/19 10:00 Oxygen Flow Rate (L/min) 2 Oxygen Delivery Method Room Air Weight: 138 lb 3.677 oz Body Mass Index (BMI) 20.9 Intake and Output for Last 24 Hours 02/10/19 02/11/19 02/12/19 23:59 23:59 23:59 Intake Total 511 / 511 540 / 540 Balance 511 / 511 540 / 540 Microbiology Past 72 Hours 02/11/19 19:34 Stool Occult Blood (PRINCESS) - Final Stool Laboratory Tests Past 24 Hrs 02/11/19 02/11/19 02/11/19 17:30 17:30 17:30 WBC 7.8 RBC 3.71 L Hgb 11.8 L Hct 35.9 L MCV 96.8 MCH 31.8 MCHC 32.9 RDW 12.2 RDW Differential 41.9 Plt Count 200 MPV 10.9 Immature Gran % (Auto) 0.100 Neut % (Auto) 59.0 Lymph % (Auto) 33.2 [place] % (Auto) 6.2 Eos % (Auto) 1.2 Baso % (Auto) 0.3 Absolute Neuts (auto) 4.6 Absolute Lymphs (auto) 2.59 Total Counted Not Reportable PT 13.3 INR 1.0 APTT 31.2 Sodium 141 Potassium 4.1 Chloride 110 H Carbon Dioxide 26.0 Anion Gap 5 BUN 48 H Creatinine 0.85 Estim Creat Clear Calc 77.21 Est GFR (MDRD) Af Amer 90 Est GFR (MDRD) Non-Af 74 BUN/Creatinine Ratio 56.5 H Glucose 106 Calcium 8.4 L Troponin I < 0.015 Triglycerides Cholesterol LDL Cholesterol VLDL Cholesterol HDL Cholesterol TSH Urine Color Urine Clarity Urine pH Ur Specific [place] Urine Protein Urine Glucose (UA) Urine Ketones Urine Occult Blood Urine Nitrite Urine Bilirubin Urine Urobilinogen Ur Leukocyte Esterase Urine RBC Urine WBC Ur Squamous Epith Cells Urine Bacteria Urine Mucus Urine Test 02/11/19 02/11/19 02/11/19 21:30 23:45 23:45 WBC RBC Hgb Hct MCV MCH MCHC RDW RDW Differential Plt Count MPV Immature Gran % (Auto) Neut % (Auto) Lymph % (Auto) [place] % (Auto) Eos % (Auto) Baso % (Auto) Absolute Neuts (auto) Absolute Lymphs (auto) Total Counted PT INR APTT Sodium Potassium Chloride Carbon Dioxide Anion Gap BUN Creatinine Estim Creat Clear Calc Est GFR (MDRD) Af Amer Est GFR (MDRD) Non-Af BUN/Creatinine Ratio Glucose Calcium Troponin I < 0.015 Triglycerides Cholesterol LDL Cholesterol VLDL Cholesterol HDL Cholesterol TSH Urine Color Yellow Urine Clarity Clear Urine pH 7.0 Ur Specific [place] 1.010 Urine Protein Negative Urine Glucose (UA) Normal Urine Ketones Negative Urine Occult Blood Negative Urine Nitrite Negative Urine Bilirubin Negative Urine Urobilinogen Normal Ur Leukocyte Esterase Negative Urine RBC 0 SEEN Urine WBC 0 SEEN Ur Squamous Epith Cells 0 SEEN Urine Bacteria 0 SEEN Urine Mucus 0 SEEN Urine Test Negative 02/12/19 02/12/19 02/12/19 00:05 03:40 03:40 WBC RBC Hgb Hct MCV MCH MCHC RDW RDW Differential Plt Count MPV Immature Gran % (Auto) Neut % (Auto) Lymph % (Auto) [place] % (Auto) Eos % (Auto) Baso % (Auto) Absolute Neuts (auto) Absolute Lymphs (auto) Total Counted PT INR APTT Sodium 144 Potassium 4.0 Chloride 115 H Carbon Dioxide 23.0 Anion Gap 6 BUN 49 H Creatinine 0.64 Estim Creat Clear Calc 100.62 Est GFR (MDRD) Af Amer 124 Est GFR (MDRD) Non-Af 102 BUN/Creatinine Ratio 76.0 H Glucose 103 Calcium 7.7 L Troponin I < 0.015 < 0.015 Triglycerides 137 Cholesterol 103 LDL Cholesterol 40 VLDL Cholesterol 27 HDL Cholesterol 36 L TSH 0.94 Urine Color Urine Clarity Urine pH Ur Specific [place] Urine Protein Urine Glucose (UA) Urine Ketones Urine Occult Blood Urine Nitrite Urine Bilirubin Urine Urobilinogen Ur Leukocyte Esterase Urine RBC Urine WBC Ur Squamous Epith Cells Urine Bacteria Urine Mucus Urine Test 02/12/19 02/12/19 03:40 03:40 WBC 7.1 RBC 2.87 L Hgb 9.0 L Hct 28.1 L MCV 97.9 MCH 31.4 MCHC 32.0 RDW 12.2 RDW Differential 41.8 Plt Count 173 MPV 10.6 Immature Gran % (Auto) Neut % (Auto) Lymph % (Auto) [place] % (Auto) Eos % (Auto) Baso % (Auto) Absolute Neuts (auto) Absolute Lymphs (auto) Total Counted PT 14.7 INR 1.2 APTT 33.3 Sodium Potassium Chloride Carbon Dioxide Anion Gap BUN Creatinine Estim Creat Clear Calc Est GFR (MDRD) Af Amer Est GFR (MDRD) Non-Af BUN/Creatinine Ratio Glucose Calcium Troponin I Triglycerides Cholesterol LDL Cholesterol VLDL Cholesterol HDL Cholesterol TSH Urine Color Urine Clarity Urine pH Ur Specific [place] Urine Protein Urine Glucose (UA) Urine Ketones Urine Occult Blood Urine Nitrite Urine Bilirubin Urine Urobilinogen Ur Leukocyte Esterase Urine RBC Urine WBC Ur Squamous Epith Cells Urine Bacteria Urine Mucus Urine Test Assessment/Plan All Active Problems (Last Reviewed 02/09/19 @ 16:11 by Kelley Yao) Melena (Acute) Anemia (Acute) Palpable abdominal aorta (Acute) Chronic pain (Acute) Chest pain (Acute) I have been consulted in conjunction with Dr. Espitia. Impression: Acute anemia. Melanotic stools Plan: Patient was discussed with Dr. Espitia. Dr. Espitia will plan to perform an upper scope with possible biopsies. Procedure details, risks and benefits have been explained to the patient. Patient has had the opportunity to ask and have questions answered. Patient verbally understands and agrees with the plan. Thank you for allowing us to participate in this patient's care. Code Visit Office Visits / Consults: [id number] IP Consult L3 - No charge
--- NOTE | 2019-02-12 10:53 | CASEMGMT ---
According to the Kelley at [facility], the following are in-network tertiary facilities: [facility], [facility](preferred), and [facility]. Ramone RUST CM
--- NOTE | 2019-02-12 11:00 | IMM_PTH ---
PATIENT: DARIUS DUNBAR LOC: [facility] U#:[id number] AGE/SX: 53/F ROOM: [facility] RE02/13/[address]: Dr. Baljit West MD : 1965 BED: 1 DIS: 02/15/2019 SPEC #: [id number] RECD: 02/12/19 14:15 STATUS: SONU REVaishali #: [id number] AMBERLY: 02/12/19 11:[address]: Remberto Espitia DEPT: IMMUNOHISTOCHEMISTRY RECD BY: Oxana Hernandez ENTERED: 02/12/19 14:16 SP TYPE: IMMUNO OTHR DR: MD Dr. Jose Rudolph MD Dr. Prakash Chand, MD Dr. Victor Velasquez, MD Tissues: Stomach, NOS Procedures: H Pylori (initial) PHYSICIAN & INSTITUTION [place] [id number] SPECIMEN INFORMATION: Tissue Source: Antral biopsy Clinical Info: Anemia; black tarry stools Specimen Number: [id number] CPT code: 72779 METHODOLOGY: Deparaffinized sections of prefer/formalin-fixed tissue or PAP/DQ stained slides are incubated with monoclonal/polyclonal antibodies/oligonucleotide probes. Localization is made via biotin free immunoperoxidase method. Appropriate controls are performed and reacted as expected. Results on target cell population are indicated in the following table: RESULTS: ANTIBODY / CLONE RESULT H Pylori (polyclonal) negative These tests were developed and their performance characteristics determined by [facility]. They may not have been cleared or approved by the U.S. Food and Drug Administration. The FDA has determined that such clearance or approval is not necessary. INTERPRETATION: Antral biopsy: Negative for Helicobacter pylori organisms. AM:[place] 02/13/19
--- NOTE | 2019-02-12 11:20 | OP.ENDO_ITS ---
02/12/2019 Martir Meeks [address] [place] [address] Re : Upper GI endoscopy procedure for Kyra Gibbons Dear Dr. Meeks This procedure was performed on January. My impressions and recommendations are as follows: Impressions : - Normal esophagus. - Non-bleeding gastric ulcer with adherent clot. Biopsied. Injected. - Normal examined duodenum. No specimens collected. Recommendations : - Return patient to [facility]. - Full liquid diet. - Use Protonix (pantoprazole) 40 mg IV daily. - Repeat upper endoscopy in 2 months to evaluate the response to therapy. - Return to my office in 1 week. - Continue present medications. My findings are described in the full procedure note, which is enclosed. If I can be of further assistance, please feel free to contact me at Doctor phone number(s): , Fax: [phone], Work: . Sincerely, MD Remberto Robles MD 02/12/2019 11:20:27 AM This report has been signed electronically.
--- NOTE | 2019-02-12 12:07 | PCM.PROGNOTE ---
<Staci Saucedo - Last Filed: 02/12/19 12:18> Patient Problems: Active and Suspected Problems (Last Reviewed 02/12/19 @ 10:39 by Alberta Adan PA-C) Melena (Acute) Anemia (Acute) Palpable abdominal aorta (Acute) Chest pain (Acute) Subjective: Patient seen and examined. Denies chest pain currently. Reports she had chest pressure and shortness of breath overnight. She denies further black stool. Denies nausea, vomiting, abdominal pain. - Physical Exam General: Alert, Oriented x3, Cooperative HEENT: Atraumatic, PERRLA, EOMI, Normocephalic Neck: Supple, No JVD, Negative Carotid Bruits Lungs: Clear to auscultation, Normal air movement Cardiovascular: Regular rate, Regular Rhythm, Normal S1, Normal S2, No murmurs Abdomen: Bowel Sounds Present, Soft, Non Tender, Non-Distended Extremities: No clubbing, No cyanosis, No edema, Capillary Refill Less than 3 Seconds Skin: No rashes, No breakdown Musculoskeletal: No Tenderness to Palpation of Joints or Extremities Neurological: Cranial nerves II-XII grossly intact, Neuro grossly intact Psych/Mental Status: Normal Affect, Appropriate Vital Signs Temp Pulse Resp BP Pulse Ox 99.4 F H 79 18 91/52 L 100 02/12/19 11:26 02/12/19 11:50 02/12/19 11:50 02/12/19 11:50 02/12/19 11:50 Oxygen Flow Rate (L/min) 2 Oxygen Delivery Method Room Air Weight: 138 lb 3.677 oz Body Mass Index (BMI) 20.9 Intake and Output for Last 24 Hours 02/10/19 02/11/19 02/12/19 23:59 23:59 23:59 Intake Total 511 / 511 540 / 540 Balance 511 / 511 540 / 540 Microbiology Past 72 Hours 02/11/19 19:34 Stool Occult Blood (PRINCESS) - Final Stool Laboratory Tests Past 24 Hrs 02/11/19 02/11/19 02/11/19 17:30 17:30 17:30 WBC 7.8 RBC 3.71 L Hgb 11.8 L Hct 35.9 L MCV 96.8 MCH 31.8 MCHC 32.9 RDW 12.2 RDW Differential 41.9 Plt Count 200 MPV 10.9 Immature Gran % (Auto) 0.100 Neut % (Auto) 59.0 Lymph % (Auto) 33.2 Hawkins % (Auto) 6.2 Eos % (Auto) 1.2 Baso % (Auto) 0.3 Absolute Neuts (auto) 4.6 Absolute Lymphs (auto) 2.59 Total Counted Not Reportable PT 13.3 INR 1.0 APTT 31.2 Sodium 141 Potassium 4.1 Chloride 110 H Carbon Dioxide 26.0 Anion Gap 5 BUN 48 H Creatinine 0.85 Estim Creat Clear Calc 77.21 Est GFR (MDRD) Af Amer 90 Est GFR (MDRD) Non-Af 74 BUN/Creatinine Ratio 56.5 H Glucose 106 Calcium 8.4 L Troponin I < 0.015 Triglycerides Cholesterol LDL Cholesterol VLDL Cholesterol HDL Cholesterol TSH Urine Color Urine Clarity Urine pH Ur Specific [place] Urine Protein Urine Glucose (UA) Urine Ketones Urine Occult Blood Urine Nitrite Urine Bilirubin Urine Urobilinogen Ur Leukocyte Esterase Urine RBC Urine WBC Ur Squamous Epith Cells Urine Bacteria Urine Mucus Urine Test 02/11/19 02/11/19 02/11/19 21:30 23:45 23:45 WBC RBC Hgb Hct MCV MCH MCHC RDW RDW Differential Plt Count MPV Immature Gran % (Auto) Neut % (Auto) Lymph % (Auto) Hawkins % (Auto) Eos % (Auto) Baso % (Auto) Absolute Neuts (auto) Absolute Lymphs (auto) Total Counted PT INR APTT Sodium Potassium Chloride Carbon Dioxide Anion Gap BUN Creatinine Estim Creat Clear Calc Est GFR (MDRD) Af Amer Est GFR (MDRD) Non-Af BUN/Creatinine Ratio Glucose Calcium Troponin I < 0.015 Triglycerides Cholesterol LDL Cholesterol VLDL Cholesterol HDL Cholesterol TSH Urine Color Yellow Urine Clarity Clear Urine pH 7.0 Ur Specific [place] 1.010 Urine Protein Negative Urine Glucose (UA) Normal Urine Ketones Negative Urine Occult Blood Negative Urine Nitrite Negative Urine Bilirubin Negative Urine Urobilinogen Normal Ur Leukocyte Esterase Negative Urine RBC 0 SEEN Urine WBC 0 SEEN Ur Squamous Epith Cells 0 SEEN Urine Bacteria 0 SEEN Urine Mucus 0 SEEN Urine Test Negative 02/12/19 02/12/19 02/12/19 00:05 03:40 03:40 WBC RBC Hgb Hct MCV MCH MCHC RDW RDW Differential Plt Count MPV Immature Gran % (Auto) Neut % (Auto) Lymph % (Auto) Hawkins % (Auto) Eos % (Auto) Baso % (Auto) Absolute Neuts (auto) Absolute Lymphs (auto) Total Counted PT INR APTT Sodium 144 Potassium 4.0 Chloride 115 H Carbon Dioxide 23.0 Anion Gap 6 BUN 49 H Creatinine 0.64 Estim Creat Clear Calc 100.62 Est GFR (MDRD) Af Amer 124 Est GFR (MDRD) Non-Af 102 BUN/Creatinine Ratio 76.0 H Glucose 103 Calcium 7.7 L Troponin I < 0.015 < 0.015 Triglycerides 137 Cholesterol 103 LDL Cholesterol 40 VLDL Cholesterol 27 HDL Cholesterol 36 L TSH 0.94 Urine Color Urine Clarity Urine pH Ur Specific [place] Urine Protein Urine Glucose (UA) Urine Ketones Urine Occult Blood Urine Nitrite Urine Bilirubin Urine Urobilinogen Ur Leukocyte Esterase Urine RBC Urine WBC Ur Squamous Epith Cells Urine Bacteria Urine Mucus Urine Test 02/12/19 02/12/19 03:40 03:40 WBC 7.1 RBC 2.87 L Hgb 9.0 L Hct 28.1 L MCV 97.9 MCH 31.4 MCHC 32.0 RDW 12.2 RDW Differential 41.8 Plt Count 173 MPV 10.6 Immature Gran % (Auto) Neut % (Auto) Lymph % (Auto) Hawkins % (Auto) Eos % (Auto) Baso % (Auto) Absolute Neuts (auto) Absolute Lymphs (auto) Total Counted PT 14.7 INR 1.2 APTT 33.3 Sodium Potassium Chloride Carbon Dioxide Anion Gap BUN Creatinine Estim Creat Clear Calc Est GFR (MDRD) Af Amer Est GFR (MDRD) Non-Af BUN/Creatinine Ratio Glucose Calcium Troponin I Triglycerides Cholesterol LDL Cholesterol VLDL Cholesterol HDL Cholesterol TSH Urine Color Urine Clarity Urine pH Ur Specific [place] Urine Protein Urine Glucose (UA) Urine Ketones Urine Occult Blood Urine Nitrite Urine Bilirubin Urine Urobilinogen Ur Leukocyte Esterase Urine RBC Urine WBC Ur Squamous Epith Cells Urine Bacteria Urine Mucus Urine Test Medical Necessity - Tobacco Use Smoking Status: Never smoker Tobacco Use: Secondhand Assessment/Plan All Active Problems (Last Reviewed 02/12/19 @ 10:39 by Alberta Adan PA-C) Melena (Acute) Anemia (Acute) Palpable abdominal aorta (Acute) Chronic pain (Acute) Chest pain (Acute) 1. Chest pain, shortness of breath in the context of CAD with history of PCI to LAD-normal stress test in September. Had plans to undergo cardiac catheterization in the near future. Echocardiogram completed, report pending. Plan for cardiac catheterization when stable from GI standpoint. On aspirin, statin, Plavix, metoprolol. Dr. Thao, cardiology following. 2. Acute anemia secondary to upper GI bleed-Dr. Espitia consulted. Patient underwent EGD which showed normal esophagus, nonbleeding gastric ulcer with adherent clot. Continue IV PPI and Carafate regimen. Repeat upper endoscopy in 2 months. Trend CBC. 3. Palpable abdominal aorta-abdominal ultrasound pending. DVT prophylaxis-SCDs, hold Lovenox given #2. This patient was seen by Staci Saucedo NP-Jessica under the supervision of Dr. Dasilva. <Jose Dasilva - Last Filed: 02/12/19 12:43> - Physical Exam Vital Signs Temp Pulse Resp BP Pulse Ox 99.4 F H 73 18 107/59 L 100 02/12/19 11:26 02/12/19 12:15 02/12/19 12:15 02/12/19 12:15 02/12/19 12:15 Oxygen Flow Rate (L/min) 2 Oxygen Delivery Method Room Air Weight: 62.7 kg Body Mass Index (BMI) 20.9 Intake and Output for Last 24 Hours 02/10/19 02/11/19 02/12/19 23:59 23:59 23:59 Intake Total 511 / 511 540 / 540 Balance 511 / 511 540 / 540 Microbiology Past 72 Hours 02/11/19 19:34 Stool Occult Blood (PRINCESS) - Final Stool Laboratory Tests Past 24 Hrs 02/11/19 02/11/19 02/11/19 17:30 17:30 17:30 WBC 7.8 RBC 3.71 L Hgb 11.8 L Hct 35.9 L MCV 96.8 MCH 31.8 MCHC 32.9 RDW 12.2 RDW Differential 41.9 Plt Count 200 MPV 10.9 Immature Gran % (Auto) 0.100 Neut % (Auto) 59.0 Lymph % (Auto) 33.2 Hawkins % (Auto) 6.2 Eos % (Auto) 1.2 Baso % (Auto) 0.3 Absolute Neuts (auto) 4.6 Absolute Lymphs (auto) 2.59 Total Counted Not Reportable PT 13.3 INR 1.0 APTT 31.2 Sodium 141 Potassium 4.1 Chloride 110 H Carbon Dioxide 26.0 Anion Gap 5 BUN 48 H Creatinine 0.85 Estim Creat Clear Calc 77.21 Est GFR (MDRD) Af Amer 90 Est GFR (MDRD) Non-Af 74 BUN/Creatinine Ratio 56.5 H Glucose 106 Calcium 8.4 L Magnesium Troponin I < 0.015 Triglycerides Cholesterol LDL Cholesterol VLDL Cholesterol HDL Cholesterol TSH Urine Color Urine Clarity Urine pH Ur Specific [place] Urine Protein Urine Glucose (UA) Urine Ketones Urine Occult Blood Urine Nitrite Urine Bilirubin Urine Urobilinogen Ur Leukocyte Esterase Urine RBC Urine WBC Ur Squamous Epith Cells Urine Bacteria Urine Mucus Urine Test 02/11/19 02/11/19 02/11/19 21:30 23:45 23:45 WBC RBC Hgb Hct MCV MCH MCHC RDW RDW Differential Plt Count MPV Immature Gran % (Auto) Neut % (Auto) Lymph % (Auto) Hawkins % (Auto) Eos % (Auto) Baso % (Auto) Absolute Neuts (auto) Absolute Lymphs (auto) Total Counted PT INR APTT Sodium Potassium Chloride Carbon Dioxide Anion Gap BUN Creatinine Estim Creat Clear Calc Est GFR (MDRD) Af Amer Est GFR (MDRD) Non-Af BUN/Creatinine Ratio Glucose Calcium Magnesium Troponin I < 0.015 Triglycerides Cholesterol LDL Cholesterol VLDL Cholesterol HDL Cholesterol TSH Urine Color Yellow Urine Clarity Clear Urine pH 7.0 Ur Specific [place] 1.010 Urine Protein Negative Urine Glucose (UA) Normal Urine Ketones Negative Urine Occult Blood Negative Urine Nitrite Negative Urine Bilirubin Negative Urine Urobilinogen Normal Ur Leukocyte Esterase Negative Urine RBC 0 SEEN Urine WBC 0 SEEN Ur Squamous Epith Cells 0 SEEN Urine Bacteria 0 SEEN Urine Mucus 0 SEEN Urine Test Negative 02/12/19 02/12/19 02/12/19 00:05 03:40 03:40 WBC RBC Hgb Hct MCV MCH MCHC RDW RDW Differential Plt Count MPV Immature Gran % (Auto) Neut % (Auto) Lymph % (Auto) Hawkins % (Auto) Eos % (Auto) Baso % (Auto) Absolute Neuts (auto) Absolute Lymphs (auto) Total Counted PT INR APTT Sodium 144 Potassium 4.0 Chloride 115 H Carbon Dioxide 23.0 Anion Gap 6 BUN 49 H Creatinine 0.64 Estim Creat Clear Calc 100.62 Est GFR (MDRD) Af Amer 124 Est GFR (MDRD) Non-Af 102 BUN/Creatinine Ratio 76.0 H Glucose 103 Calcium 7.7 L Magnesium Troponin I < 0.015 < 0.015 Triglycerides 137 Cholesterol 103 LDL Cholesterol 40 VLDL Cholesterol 27 HDL Cholesterol 36 L TSH 0.94 Urine Color Urine Clarity Urine pH Ur Specific [place] Urine Protein Urine Glucose (UA) Urine Ketones Urine Occult Blood Urine Nitrite Urine Bilirubin Urine Urobilinogen Ur Leukocyte Esterase Urine RBC Urine WBC Ur Squamous Epith Cells Urine Bacteria Urine Mucus Urine Test 02/12/19 02/12/19 02/12/19 03:40 03:40 03:40 WBC 7.1 RBC 2.87 L Hgb 9.0 L Hct 28.1 L MCV 97.9 MCH 31.4 MCHC 32.0 RDW 12.2 RDW Differential 41.8 Plt Count 173 MPV 10.6 Immature Gran % (Auto) Neut % (Auto) Lymph % (Auto) Hawkins % (Auto) Eos % (Auto) Baso % (Auto) Absolute Neuts (auto) Absolute Lymphs (auto) Total Counted PT 14.7 INR 1.2 APTT 33.3 Sodium Potassium Chloride Carbon Dioxide Anion Gap BUN Creatinine Estim Creat Clear Calc Est GFR (MDRD) Af Amer Est GFR (MDRD) Non-Af BUN/Creatinine Ratio Glucose Calcium Magnesium Pending Troponin I Triglycerides Cholesterol LDL Cholesterol VLDL Cholesterol HDL Cholesterol TSH Urine Color Urine Clarity Urine pH Ur Specific [place] Urine Protein Urine Glucose (UA) Urine Ketones Urine Occult Blood Urine Nitrite Urine Bilirubin Urine Urobilinogen Ur Leukocyte Esterase Urine RBC Urine WBC Ur Squamous Epith Cells Urine Bacteria Urine Mucus Urine Test Assessment/Plan This patient was seen in conjunction with PA Ramirez . I have independently interviewed and examined the patient and reviewed pertinent historical, laboratory, and other data. Please refer to PA Ramirez note for details of this patient's presentation, findings, and recommendations. I have reviewed PA Ramirez note and concur with documented findings. In brief, patient is a 53-year-old lady with history of known CAD with previous PCI to an LAD lesion on dual antiplatelet therapy who presented with chest pain and epigastric discomfort with associated melenic stools. Admitted to a monitored bed where OH has been ruled out with serial cardiac enzymes. Consultation was placed to general surgery Dr. Espitia and underwent EGD on 02/12/2019 which demonstrated nonbleeding gastric ulcer with an adherent clot Physical Examination: GENERAL: cooperative HEENT: Atraumatic; EYES; Anicteric, Normal Conjunctiva NECK; supple, normal thyroid, RESPIRATORY: Diminished to auscultation bilaterally, CARDIOVASCULAR: Regular S1 S2, GI: soft, non-tender, normoactive bowel sounds, : No Renal angle tenderness; EXTREMITIES: No edema, no clubbing, no cyanosis. NEURO: Awake; no lateralizing signs. SKIN: No Rash PSYCH; Normal affect Assessment: 1. Acute upper GI bleed 2. Anemia secondary to acute blood loss anemia from above 3. Gastric ulcer 4. Chest pain in a patient with known coronary artery disease 5. CAD with previous PCI/RON to an LAD lesion Recommendations: 1. I have discussed the results of my overview and impressions with the patient 2. Options for management were reviewed Code Visit OBSV E&M: 90108 Subsequent observation care L3
--- NOTE | 2019-02-12 12:10 | RAD_ITS ---
STUDY: X-RAY - ABDOMEN/PELVIS REASON FOR EXAM: Female, 53 years old. Extreme abdominal pain following endoscopy. Nausea and vomiting. TECHNIQUE: AP supine and decubitus views of the abdomen and pelvis. COMPARISON: None. FINDINGS: Normal visualized lung bases. There is an unremarkable bowel gas pattern. There is no demonstrated free abdominal air. The visualized liver, spleen and kidneys are grossly normal in size and morphology. Normal soft tissue structures. Normal visualized osseous structures. RAD/Abd Inc Decub and/or Erect IMPRESSION: Normal x-ray examination of the abdomen and pelvis. Electronically Signed: Terence Reich, at 12:59 EDT , Service support ,
[2019-02-12 13:06] LABS: Magnesium 2.1 mg/dL (1.6-2.6)
[2019-02-12] MEDS: 0.9% Normal Saline 1,000 ML 15 ML IV (15:16)
[2019-02-12] MEDS: Epinephrine IV 1 mg/10 ml syringe IV (15:16)
[2019-02-12 15:50] LABS: Hematocrit 24.3 % (37-47); Hemoglobin 8.2 g/dl (12.0-15.0)
[2019-02-12] MEDS: Sucralfate 1 GM Tablet PO ×2 (17:32→21:55)
[2019-02-13] VITALS (15 sets, daily range): BP systolic 102–109; BP diastolic 54–70; PULSE 64–79; RESP 14–18; TEMP 36.8–37.1; O2SAT 97–99
[2019-02-13] MEDS: Acetaminophen 325 MG Tablet 650 MG PO ×3 (03:43→21:14)
[2019-02-13] MEDS: 0.9% NaCl Peripheral Flush Adult/Peds IV ×3 (04:30→08:13)
[2019-02-13 05:02] LABS: Hematocrit 23.1 % (37-47); Hemoglobin 7.5 g/dl (12.0-15.0); Mean Corp Hgb Conc 32.5 g/gl (32-36); Mean Corpuscular Hgb 32.1 pg (27.0-32.0); Mean Corpuscular Volume 98.7 fL (81-99); Platelet Count 143 K/mm3 (150-450); RBC Distribution Width CV 12.2 % (11.6-14.6); RBC Distribution Width SD 41.2 fl (35.1-43.9); Red Blood Count 2.34 M/mm3 (4.2-5.4); White Blood Count 5.5 K/mm3 (4.4-11.0)
[2019-02-13 05:03] LABS: Scan Indicated on CBC? Y/N NO
[2019-02-13 05:13] LABS: International Normalized Ratio 1.2; Prothrombin Time (Protime)PT. 14.7 SECONDS (11.7-14.9)
[2019-02-13 05:14] LABS: Partial Thromboplast Time 31.6 Seconds (24.1-36.2)
[2019-02-13 05:19] LABS: Anion Gap 5 (5-15); BUN 16 mg/dL (7-18); Chloride 116 mmol/L (98-107); EST Glomerular Filtration Rate 93 mL/min (>60); Est Glom Filt Rate - Afr Amer 113 mL/min (>60); Glucose 91 mg/dL (74-106); Magnesium 1.9 mg/dL (1.6-2.6); Potassium 3.7 mmol/L (3.5-5.1); Sodium Level 146 mmol/L (136-145)
--- NOTE | 2019-02-13 05:55 | EKG12_ITS ---
Test Reason : AM EKG Blood Pressure : / mmHG Vent. Rate : 071 BPM Atrial Rate : 071 BPM P-R Int : 144 ms QRS Dur : 090 ms QT Int : 380 ms P-R-T Axes : 074 084 060 degrees QTc Int : 412 ms Normal sinus rhythm Normal ECG When compared with ECG of 12-FEB-2019 06:01, MANUAL COMPARISON REQUIRED, DATA IS UNCONFIRMED Confirmed by MICHAEL MCGREGOR, DORINA ([id number]), graphic editor MARV ARMSTRONG ([id number]) on 02/18/2019 12:07:23 PM Referred By: Brannon Lieberman Confirmed By:DORINA RODRIGUEZ MD
[2019-02-13] MEDS: Sucralfate 1 GM Tablet PO ×4 (06:03→21:15)
[2019-02-13] MEDS: oxyCODONE 5 MG Tablet PO ×2 (08:12→18:14)
--- NOTE | 2019-02-13 10:01 | PCM.PN.CARD ---
Subjectve: The patient was evaluated earlier this morning. She noted that overall she been feeling better but still was having some abdominal discomfort. She has had no acute chest discomfort or dyspnea. Objective: Vital Signs Temp Pulse Resp BP Pulse Ox 98.6 F 73 16 106/64 99 02/13/19 08:20 02/13/19 08:20 02/13/19 08:20 02/13/19 08:20 02/13/19 08:20 Oxygen Flow Rate (L/min) 2 Oxygen Delivery Method Room Air Weight: 138 lb 3.677 oz Body Mass Index (BMI) 20.9 Intake and Output for Last 24 Hours 02/11/19 02/12/19 02/13/19 23:59 23:59 23:59 Intake Total 511 / 511 2871 / 2871 90.4 / 90.4 Balance 511 / 511 2871 / 2871 90.4 / 90.4 General: Awake, Alert, Oriented x 3, Cooperative HEENT: Atraumatic, Normocephalic, PERRL, EOMI, Sclera Non Icteric Oral: Moist Mucosa Neck: Supple, Good ROM, No JVD Lungs: Clear to auscultation Cardiovascular: Regular Rhythm, Normal S1, Normal S2 Vascular: No Carotid Bruits Abdomen: Bowel Sounds Present, Soft, Non Tender Extremities: No edema Neurological: No Focal Motor or Sensory Deficit Psych/Mental Status: Anxious 02/12/19 03:40: Magnesium 2.1 02/12/19 15:25: Hgb 8.2 L, Hct 24.3 L 02/13/19 04:54: WBC 5.5, RBC 2.34 L, Hgb 7.5 L, Hct 23.1 L, MCV 98.7, MCH 32.1 H, MCHC 32.5, RDW 12.2, RDW Differential 41.2, Plt Count 143 L, MPV 10.0 02/13/19 04:54: Sodium 146 H, Potassium 3.7, Chloride 116 H, Carbon Dioxide 25.0, Anion Gap 5, BUN 16, Creatinine 0.70, Est GFR (MDRD) Af Amer 113, Est GFR (MDRD) Non-Af 93, BUN/Creatinine Ratio 23.0 H, Glucose 91, Calcium 8.0 L, Magnesium 1.9 02/13/19 04:54: PT 14.7, INR 1.2, APTT 31.6 Rhythm: Sinus rhythm Medical Necessity - Tobacco Use Smoking Status: Never smoker Tobacco Use: Secondhand Assessment/Plan 1. Chest pain graph the patient has had chest pain. Her concern is that this is reminiscent of symptoms she had prior to her previous CAD diagnosis and LAD PCI. At the present time there has been concern as to whether or not she is having recurrent angina pectoris. However, at the same time, she has been found to have underlying peptic ulcer disease with GI bleed and decreasing H&H. She has undergone EGD. She did have peptic ulcer disease with an adherent clot. She received epinephrine injection. The tentative plan if she remains stable, status post a discussion with Dr. Espitia, was that she could remain on her antiplatelet medication and proceed with her diagnostic cardiac catheterization. However, she has demonstrated that her H&H has continued to drop. Thus at the present time, noting no other acute objective cardiovascular findings, it was felt prudent, with the patient's gastrointestinal related process, that her antiplatelet/anticoagulant therapy be placed on hold, that she receive PRBCs, and that her cardiac catheterization be placed on indefinite hold pending the outcome of her gastrointestinal bleeding process. 2. CAD status post LAD PCI-remote Again she will continue to be observed. She will continue medical management as deemed appropriate. She will continue with cardiac evaluation and noncardiac evaluation after her gastrointestinal bleeding process has stabilized-when deemed appropriate. 3. Peptic ulcer disease with associated gastrointestinal bleeding She is undergone evaluation care as noted above. She is continuing PPI therapy. Her antiplatelet/anticoagulant therapy has now been placed on hold based upon progressive anemia. He may require repeat EGD prior to her being able be placed back on antiplatelet therapy and proceeding with her diagnostic cardiac catheterization. 4. Anemia Based upon her decreasing H&H her medications have been adjusted as noted above. She is receiving PRBCs to hopefully increase her oxygen carrying capacity especially in light of her cardiovascular history. 5. Palpable abdominal aorta Her abdominal ultrasound report is pending at this time. Comment: The above was discussed with the patient and her spouse. They are agreeable to this approach. The above was also discussed with Dr. Dasilva of the [facility] staff. This note was generated using a voice recognition system and there may be incorrect words, spelling or punctuation that were not noted when reviewing the office note prior to saving.
--- NOTE | 2019-02-13 10:31 | CASEMGMT ---
Addendum entered by Geoff Calle 02/13/19 10:38: Dr Meeks is new PCP for pt. She has an appt made for initial visit with him in February. She thinks it is February 27. Original Note: RN CM WANT AD RECEIVER CM to room to meet with patient for initial transition planning/care coordination assessment. BARRERA NEAL introduced self and role at [facility]. Family member present in room. Pt voices understanding and consents to assessment at this time w/family member in room. Pt resting in bed in no distress at this time. Pt is A/O at this time and answers all questions appropriately. Care providers, pharmacy, and demographics verified/updated at this time. PCP: Constantino Specialists: [facility] Preferred [facility]acy: [facility] Insurance: [employer] Prescription Benefit: Yes Living Will/HPOA: States does not have LW or HCPOA . Provided information on advanced directives and given Social Service rac card with number to call if chooses in the future to utilize [facility] social work for advanced directive completion. LNOK: Living Arrangements: Lives w/. Independent. Transportation: Pt states drives self and states no transportation concerns at this time. able to drive her home on d/c. DME: Denies using any DME and denies needs. HHC/SNF: No history of either. No needs identified. Pt wishes to return home and states has no concerns with going home at time of discharge. Pt states does not smoke. Drinks socially. CM to follow for any discharge planning/needs. Pt voices no further concerns/needs at this time. Advised pt to ask for CM if any further questions/concerns/needs arise. Voices understanding. PLAN: Home w/spousal support and discharge plans in place. Jenny HOLDER RN, CM
--- NOTE | 2019-02-13 12:01 | PN_ITS ---
<Staci Saucedo - Last Filed: 02/13/19 12:01> Patient Problems: Active and Suspected Problems (Last Reviewed 02/12/19 @ 10:39 by Alberta Adan PA-C) Melena (Acute) Anemia (Acute) Palpable abdominal aorta (Acute) Chest pain (Acute) Subjective: Patient seen and examined. Complains of restlessness. Reports increased abdominal pain and chest pain this morning. Reports generalized weakness and overall feeling unwell. - Physical Exam General: Alert, Oriented x3, Cooperative HEENT: Atraumatic, PERRLA, EOMI, Normocephalic Neck: Supple, No JVD, Negative Carotid Bruits Lungs: Clear to auscultation, Normal air movement Cardiovascular: Regular rate, Regular Rhythm, Normal S1, Normal S2, No murmurs Abdomen: Bowel Sounds Present, Soft, Non Tender, Non-Distended Extremities: No clubbing, No cyanosis, No edema, Capillary Refill Less than 3 Seconds Skin: No rashes, No breakdown Musculoskeletal: No Tenderness to Palpation of Joints or Extremities Neurological: Cranial nerves II-XII grossly intact, Neuro grossly intact Psych/Mental Status: Normal Affect, Appropriate Vital Signs Temp Pulse Resp BP Pulse Ox 98.5 F 74 16 106/67 97 02/13/19 10:20 02/13/19 10:20 02/13/19 10:20 02/13/19 10:20 02/13/19 10:20 Oxygen Flow Rate (L/min) 2 Oxygen Delivery Method Room Air Weight: 138 lb 3.677 oz Body Mass Index (BMI) 20.9 Intake and Output for Last 24 Hours 02/11/19 02/12/19 02/13/19 23:59 23:59 23:59 Intake Total 511 / 511 2871 / 2871 490.4 / 490.4 Balance 511 / 511 2871 / 2871 490.4 / 490.4 Microbiology Past 72 Hours 02/11/19 19:34 Stool Occult Blood (PRINCESS) - Final Stool Laboratory Tests Past 24 Hrs 02/12/19 02/12/19 02/13/19 03:40 15:25 04:54 WBC 5.5 RBC 2.34 L Hgb 8.2 L 7.5 L Hct 24.3 L 23.1 L MCV 98.7 MCH 32.1 H MCHC 32.5 RDW 12.2 RDW Differential 41.2 Plt Count 143 L MPV 10.0 PT INR APTT Sodium Potassium Chloride Carbon Dioxide Anion Gap BUN Creatinine Estim Creat Clear Calc Est GFR (MDRD) Af Amer Est GFR (MDRD) Non-Af BUN/Creatinine Ratio Glucose Calcium Magnesium 2.1 Blood Type Antibody Screen Crossmatch 02/13/19 02/13/19 02/13/19 04:54 04:54 05:30 WBC RBC Hgb Hct MCV MCH MCHC RDW RDW Differential Plt Count MPV PT 14.7 INR 1.2 APTT 31.6 Sodium 146 H Potassium 3.7 Chloride 116 H Carbon Dioxide 25.0 Anion Gap 5 BUN 16 Creatinine 0.70 Estim Creat Clear Calc 92.00 Est GFR (MDRD) Af Amer 113 Est GFR (MDRD) Non-Af 93 BUN/Creatinine Ratio 23.0 H Glucose 91 Calcium 8.0 L Magnesium 1.9 Blood Type O POSITIVE Antibody Screen NEGATIVE Crossmatch See Detail Medical Necessity - Tobacco Use Smoking Status: Never smoker Tobacco Use: Secondhand Assessment/Plan All Active Problems (Last Reviewed 02/12/19 @ 10:39 by Alberta Adan PA-C) Melena (Acute) Anemia (Acute) Palpable abdominal aorta (Acute) Chronic pain (Acute) Chest pain (Acute) 1. Chest pain, shortness of breath in the context of CAD with history of PCI to LAD-normal stress test in September. Had plans to undergo cardiac catheterization in the near future as outpatient. Echocardiogram completed and showed an EF of 65%, RVSP estimated to be 36 mmHg.. Plan for cardiac catheterization when stable from GI standpoint. On aspirin, statin, Plavix, metoprolol. Aspirin, Plavix on hold given acute anemia/GI bleed. Dr. Thao, cardiology foll owing. 2. Acute anemia secondary to upper GI bleed-Dr. Espitia consulted. Patient underwent EGD which showed normal esophagus, nonbleeding gastric ulcer with adherent clot. Continue IV PPI and Carafate regimen. Repeat upper endoscopy in 2 months. 2 units PRBC ordered per cardiology for hemoglobin 7.5. Trend CBC. Gastric biopsy shows chronic gastritis, H. pylori and pathology pending. 3. Palpable abdominal aorta-abdominal ultrasound pending. DVT prophylaxis-SCDs, hold Lovenox given #2. This patient was seen by PA Ramirez under the supervision of Dr. Dasilva. <Jose Dasilva - Last Filed: 02/13/19 12:23> - Physical Exam Vital Signs Temp Pulse Resp BP Pulse Ox 98.7 F 74 16 102/62 98 02/13/19 11:40 02/13/19 11:40 02/13/19 11:40 02/13/19 11:40 02/13/19 11:40 Oxygen Flow Rate (L/min) 2 Oxygen Delivery Method Room Air Weight: 62.7 kg Body Mass Index (BMI) 20.9 Intake and Output for Last 24 Hours 02/11/19 02/12/19 02/13/19 23:59 23:59 23:59 Intake Total 511 / 511 2871 / 2871 1130.4 / 1130.4 Balance 511 / 511 2871 / 2871 1130.4 / 1130.4 Microbiology Past 72 Hours 02/11/19 19:34 Stool Occult Blood (PRINCESS) - Final Stool Laboratory Tests Past 24 Hrs 02/12/19 02/12/19 02/13/19 03:40 15:25 04:54 WBC 5.5 RBC 2.34 L Hgb 8.2 L 7.5 L Hct 24.3 L 23.1 L MCV 98.7 MCH 32.1 H MCHC 32.5 RDW 12.2 RDW Differential 41.2 Plt Count 143 L MPV 10.0 PT INR APTT Sodium Potassium Chloride Carbon Dioxide Anion Gap BUN Creatinine Estim Creat Clear Calc Est GFR (MDRD) Af Amer Est GFR (MDRD) Non-Af BUN/Creatinine Ratio Glucose Calcium Magnesium 2.1 Blood Type Antibody Screen Crossmatch 02/13/19 02/13/19 02/13/19 04:54 04:54 05:30 WBC RBC Hgb Hct MCV MCH MCHC RDW RDW Differential Plt Count MPV PT 14.7 INR 1.2 APTT 31.6 Sodium 146 H Potassium 3.7 Chloride 116 H Carbon Dioxide 25.0 Anion Gap 5 BUN 16 Creatinine 0.70 Estim Creat Clear Calc 92.00 Est GFR (MDRD) Af Amer 113 Est GFR (MDRD) Non-Af 93 BUN/Creatinine Ratio 23.0 H Glucose 91 Calcium 8.0 L Magnesium 1.9 Blood Type O POSITIVE Antibody Screen NEGATIVE Crossmatch See Detail Assessment/Plan This patient was seen in conjunction with PA Ramirez . I have independently interviewed and examined the patient and reviewed pertinent historical, laboratory, and other data. Please refer to PA Ramirez note for details of this patient's presentation, findings, and recommendations. I have reviewed PA Ramirez note and concur with documented findings. In brief, patient is a 53-year-old lady with history of known CAD with previous PCI to an LAD lesion on dual antiplatelet therapy who presented with chest pain and epigastric discomfort with associated melenic stools. Admitted to a monitored bed where GA has been ruled out with serial cardiac enzymes. Consultation was placed to general surgery Dr. Espitia and underwent EGD on 02/12/2019 which demonstrated nonbleeding gastric ulcer with an adherent clot 02/13/2019. Patient hemoglobin did drop to 7.5 necessitating patient being transfused with 1 unit PRBC Physical Examination: GENERAL: cooperative HEENT: Atraumatic; EYES; Anicteric, Normal Conjunctiva NECK; supple, normal thyroid, RESPIRATORY: Diminished to auscultation bilaterally, CARDIOVASCULAR: Regular S1 S2, GI: soft, non-tender, normoactive bowel sounds, : No Renal angle tenderness; EXTREMITIES: No edema, no clubbing, no cyanosis. NEURO: Awake; no lateralizing signs. SKIN: No Rash PSYCH; Normal affect Assessment: 1. Acute upper GI bleed 2. Anemia secondary to acute blood loss anemia from above 3. Gastric ulcer 4. Chest pain in a patient with known coronary artery disease 5. CAD with previous PCI/RON to an LAD lesion Recommendations: 1. I have discussed the results of my overview and impressions with the patient 2. Options for management were reviewed Code Visit Inpatient E&M: 92114 Subs Hosp L3
--- NOTE | 2019-02-13 13:30 | PCM.PN.SRG ---
Patient Problems: Active and Suspected Problems (Last Reviewed 02/12/19 @ 10:39 by Alberta Adan PA-C) Melena (Acute) Anemia (Acute) Palpable abdominal aorta (Acute) Chest pain (Acute) Subjective: Pain is better. Not complaining of any more melanotic stools Objective: Abdomen is soft - Physical Exam Vital Signs Temp Pulse Resp BP Pulse Ox 98.7 F 68 16 104/70 99 02/13/19 12:35 02/13/19 12:35 02/13/19 12:35 02/13/19 12:35 02/13/19 12:35 Oxygen Flow Rate (L/min) 2 Oxygen Delivery Method Room Air Weight: 138 lb 3.677 oz Body Mass Index (BMI) 20.9 Intake and Output for Last 24 Hours 02/11/19 02/12/19 02/13/19 23:59 23:59 23:59 Intake Total 511 / 511 2871 / 2871 1130.4 / 1130.4 Balance 511 / 511 2871 / 2871 1130.4 / 1130.4 Microbiology Past 72 Hours 02/11/19 19:34 Stool Occult Blood (PRINCESS) - Final Stool Laboratory Tests Past 24 Hrs 02/12/19 02/13/19 02/13/19 15:25 04:54 04:54 WBC 5.5 RBC 2.34 L Hgb 8.2 L 7.5 L Hct 24.3 L 23.1 L MCV 98.7 MCH 32.1 H MCHC 32.5 RDW 12.2 RDW Differential 41.2 Plt Count 143 L MPV 10.0 PT INR APTT Sodium 146 H Potassium 3.7 Chloride 116 H Carbon Dioxide 25.0 Anion Gap 5 BUN 16 Creatinine 0.70 Estim Creat Clear Calc 92.00 Est GFR (MDRD) Af Amer 113 Est GFR (MDRD) Non-Af 93 BUN/Creatinine Ratio 23.0 H Glucose 91 Calcium 8.0 L Magnesium 1.9 Blood Type Antibody Screen Crossmatch 02/13/19 02/13/19 04:54 05:30 WBC RBC Hgb Hct MCV MCH MCHC RDW RDW Differential Plt Count MPV PT 14.7 INR 1.2 APTT 31.6 Sodium Potassium Chloride Carbon Dioxide Anion Gap BUN Creatinine Estim Creat Clear Calc Est GFR (MDRD) Af Amer Est GFR (MDRD) Non-Af BUN/Creatinine Ratio Glucose Calcium Magnesium Blood Type O POSITIVE Antibody Screen NEGATIVE Crossmatch See Detail Medical Necessity - Tobacco Use Smoking Status: Never smoker Tobacco Use: Secondhand Assessment/Plan All Active Problems (Last Reviewed 02/12/19 @ 10:39 by Alberta Adan PA-C) Melena (Acute) Anemia (Acute) Palpable abdominal aorta (Acute) Chronic pain (Acute) Chest pain (Acute) From my standpoint the patient can undergo her heart cath at any time. If the patient shows evidence of rebleeding she will get rescoped this weekend.
[2019-02-14] VITALS (10 sets, daily range): BP systolic 91–115; BP diastolic 53–65; PULSE 60–87; RESP 14–18; TEMP 36.4–37.2; O2SAT 96–98
[2019-02-14] MEDS: oxyCODONE 5 MG Tablet PO (02:29)
[2019-02-14] MEDS: Morphine 2 MG/ML Syringe IV (05:12)
[2019-02-14] MEDS: 0.9% NaCl Peripheral Flush Adult/Peds IV ×3 (05:19→11:21)
[2019-02-14] MEDS: Ondansetron 4 MG/2 ML Vial IV (05:19)
[2019-02-14 06:03] LABS: Hematocrit 31.2 % (37-47); Hemoglobin 10.3 g/dl (12.0-15.0); Mean Corpuscular Hgb 31.1 pg (27.0-32.0); Mean Corpuscular Volume 94.3 fL (81-99); Mean Platelet Vol. 10.5 fl (6.2-12.0); Platelet Count 150 K/mm3 (150-450); RBC Distribution Width CV 13.6 % (11.6-14.6); RBC Distribution Width SD 44.8 fl (35.1-43.9); Red Blood Count 3.31 M/mm3 (4.2-5.4); Scan Indicated on CBC? Y/N NO; White Blood Count 5.4 K/mm3 (4.4-11.0)
[2019-02-14 06:26] LABS: Anion Gap 7 (5-15); BUN 10 mg/dL (7-18); BUN/Creat Ratio 14.7 RATIO (10-20); Chloride 112 mmol/L (98-107); Creatinine, Serum 0.68 mg/dL (0.55-1.02); EST Glomerular Filtration Rate 96 mL/min (>60); Est Glom Filt Rate - Afr Amer 116 mL/min (>60); Glucose 100 mg/dL (74-106); Potassium 3.5 mmol/L (3.5-5.1); Sodium Level 145 mmol/L (136-145)
[2019-02-14] MEDS: Sucralfate 1 GM Tablet PO ×3 (06:27→21:41)
--- NOTE | 2019-02-14 07:58 | PCM.PN.SRG ---
Patient Problems: Active and Suspected Problems (Last Reviewed 02/12/19 @ 10:39 by Alberta Adan PA-C) Melena (Acute) Anemia (Acute) Palpable abdominal aorta (Acute) Chest pain (Acute) Subjective: Patient is complaining of severe headache as well as nausea. She says the pain is in her left eye as well as left neck. She is complaining of nausea but not having any vomiting. No melanotic stools overnight. No severe abdominal pain. - Physical Exam General: Alert, Cooperative Neck: No JVD Cardiovascular: Regular rate, Regular Rhythm Abdomen: Soft, Non Tender, Non-Distended Vital Signs Temp Pulse Resp BP Pulse Ox 97.6 F L 65 18 109/63 97 02/14/19 06:24 02/14/19 07:04 02/14/19 06:24 02/14/19 06:24 02/14/19 06:24 Oxygen Flow Rate (L/min) 2 Oxygen Delivery Method Room Air Weight: 138 lb 3.677 oz Body Mass Index (BMI) 20.9 Intake and Output for Last 24 Hours 02/12/19 02/13/19 02/14/19 23:59 23:59 23:59 Intake Total 2871 / 2871 1530.4 / 1530.4 360 / 360 Output Total 600 / 600 Balance 2871 / 2871 930.4 / 930.4 360 / 360 Microbiology Past 72 Hours 02/11/19 19:34 Stool Occult Blood (PRINCESS) - Final Stool Laboratory Tests Past 24 Hrs 02/13/19 02/14/19 02/14/19 05:30 05:25 05:25 WBC 5.4 RBC 3.31 L Hgb 10.3 L Hct 31.2 L MCV 94.3 MCH 31.1 MCHC 33.0 RDW 13.6 RDW Differential 44.8 H Plt Count 150 MPV 10.5 Sodium 145 Potassium 3.5 Chloride 112 H Carbon Dioxide 26.0 Anion Gap 7 BUN 10 Creatinine 0.68 Estim Creat Clear Calc 94.70 Est GFR (MDRD) Af Amer 116 Est GFR (MDRD) Non-Af 96 BUN/Creatinine Ratio 14.7 Glucose 100 Calcium 8.0 L Blood Type O POSITIVE Antibody Screen NEGATIVE Crossmatch See Detail Medical Necessity - Tobacco Use Smoking Status: Never smoker Tobacco Use: Secondhand Assessment/Plan All Active Problems (Last Reviewed 02/12/19 @ 10:39 by Alberta Adan PA-C) Melena (Acute) Anemia (Acute) Palpable abdominal aorta (Acute) Chronic pain (Acute) Chest pain (Acute) 53-year-old female with gastric ulcer and upper GI bleed 1. Patient received 2 units of blood and appropriately her hemoglobin rainer to 10.5. She denies any melanotic stools for the last 2 days. She does not have any abdominal pain. She is complaining of severe nausea and left eye and neck pain. It almost sounds like migraine or cluster headache. She is tolerating a liquid diet. 2. Patient may be having a migraine causing her nausea. She is not complaining of any abdominal pain. She had no vomiting. Her hemoglobin appears to be steady after transfusion. If she has any melanotic stools her hemoglobin continues to drift downward I would recommend rescoping. Continue PPI and Carafate. Dallas Betancourt MD Pager: [facility] [address] [place] [address], [address] [place] [address] Office:
[2019-02-14] MEDS: proMETHazine 25 MG/ML Syringe 12.5 MG IV (09:42)
[2019-02-14] MEDS: Ketorolac 30 MG/ML Syringe IV (09:50)
--- NOTE | 2019-02-14 11:06 | PN_ITS ---
<Staci Saucedo - Last Filed: 02/14/19 11:06> Patient Problems: Active and Suspected Problems (Last Reviewed 02/12/19 @ 10:39 by Alberta Adan PA-C) Melena (Acute) Anemia (Acute) Palpable abdominal aorta (Acute) Chest pain (Acute) Subjective: Patient seen and examined. Lying in bed with her eyes closed. Complains of severe migraine which initially started overnight. Complains of associated nausea. She reports she has a history of migraines. Not on any prophylactic medication. Denies chest pain, abdominal pain. - Physical Exam General: Alert, Oriented x3, Cooperative HEENT: Atraumatic, PERRLA, EOMI, Normocephalic Neck: Supple, No JVD, Negative Carotid Bruits Lungs: Clear to auscultation, Normal air movement Cardiovascular: Regular rate, Regular Rhythm, Normal S1, Normal S2, No murmurs Abdomen: Bowel Sounds Present, Soft, Non Tender, Non-Distended Extremities: No clubbing, No cyanosis, No edema, Capillary Refill Less than 3 Seconds Skin: No rashes, No breakdown Musculoskeletal: No Tenderness to Palpation of Joints or Extremities Neurological: Cranial nerves II-XII grossly intact, Neuro grossly intact Psych/Mental Status: Flat Affect Vital Signs Temp Pulse Resp BP Pulse Ox 97.6 F L 65 18 109/63 97 02/14/19 06:24 02/14/19 07:04 02/14/19 06:24 02/14/19 06:24 02/14/19 06:24 Oxygen Flow Rate (L/min) 2 Oxygen Delivery Method Room Air Weight: 138 lb 3.677 oz Body Mass Index (BMI) 20.9 Intake and Output for Last 24 Hours 02/12/19 02/13/19 02/14/19 23:59 23:59 23:59 Intake Total 2871 / 2871 1530.4 / 1530.4 360 / 360 Output Total 600 / 600 Balance 2871 / 2871 930.4 / 930.4 360 / 360 Microbiology Past 72 Hours 02/11/19 19:34 Stool Occult Blood (PRINCESS) - Final Stool Laboratory Tests Past 24 Hrs 02/13/19 02/14/19 02/14/19 05:30 05:25 05:25 WBC 5.4 RBC 3.31 L Hgb 10.3 L Hct 31.2 L MCV 94.3 MCH 31.1 MCHC 33.0 RDW 13.6 RDW Differential 44.8 H Plt Count 150 MPV 10.5 Sodium 145 Potassium 3.5 Chloride 112 H Carbon Dioxide 26.0 Anion Gap 7 BUN 10 Creatinine 0.68 Estim Creat Clear Calc 94.70 Est GFR (MDRD) Af Amer 116 Est GFR (MDRD) Non-Af 96 BUN/Creatinine Ratio 14.7 Glucose 100 Calcium 8.0 L Blood Type O POSITIVE Antibody Screen NEGATIVE Crossmatch See Detail Medical Necessity - Tobacco Use Smoking Status: Never smoker Tobacco Use: Secondhand Assessment/Plan All Active Problems (Last Reviewed 02/12/19 @ 10:39 by Alberta Adan PA-C) Melena (Acute) Anemia (Acute) Palpable abdominal aorta (Acute) Chronic pain (Acute) Chest pain (Acute) 1. Chest pain, shortness of breath in the context of CAD with history of PCI to LAD-normal stress test in September. Had plans to undergo cardiac catheterization in the near future as outpatient. Echocardiogram completed and showed an EF of 65%, RVSP estimated to be 36 mmHg.. Plan for cardiac catheterization when stable from GI standpoint. On aspirin, statin, Plavix, metoprolol. Aspirin, Plavix on hold given acute anemia/GI bleed. Dr. Thao, cardiology following. 2. Acute anemia secondary to acute upper GI bleed as a result of gastric ulcer- Dr. Espitia consulted. Patient underwent EGD which showed normal esophagus, nonbleeding gastric ulcer with adherent clot. Continue IV PPI and Carafate regimen. Repeat upper endoscopy in 2 months. S/P 2 units PRBC for hemoglobin 7.5. Hemoglobin now 10.3. Gastric biopsy shows chronic gastritis, H. pylori and pathology pending. 3. Acute migraine-history of intermittent migraines. Avoid morphine/oxycodone. IV Toradol and IV Decadron x1. DVT prophylaxis-SCDs, hold Lovenox given #2. This patient was seen by PA Ramirez under the supervision of Dr. West. <Baljit West F - Last Filed: 02/14/19 12:52> - Physical Exam Vital Signs Temp Pulse Resp BP Pulse Ox 98.6 F 61 16 96/59 L 96 02/14/19 12:20 02/14/19 12:20 02/14/19 12:20 02/14/19 12:20 02/14/19 12:20 Oxygen Flow Rate (L/min) 2 Oxygen Delivery Method Room Air Weight: 138 lb 3.677 oz Body Mass Index (BMI) 20.9 Intake and Output for Last 24 Hours 02/12/19 02/13/19 02/14/19 23:59 23:59 23:59 Intake Total 2871 / 2871 1530.4 / 1530.4 360 / 360 Output Total 600 / 600 Balance 2871 / 2871 930.4 / 930.4 360 / 360 Microbiology Past 72 Hours 02/11/19 19:34 Stool Occult Blood (PRINCESS) - Final Stool Laboratory Tests Past 24 Hrs 02/13/19 02/14/19 02/14/19 05:30 05:25 05:25 WBC 5.4 RBC 3.31 L Hgb 10.3 L Hct 31.2 L MCV 94.3 MCH 31.1 MCHC 33.0 RDW 13.6 RDW Differential 44.8 H Plt Count 150 MPV 10.5 Sodium 145 Potassium 3.5 Chloride 112 H Carbon Dioxide 26.0 Anion Gap 7 BUN 10 Creatinine 0.68 Estim Creat Clear Calc 94.70 Est GFR (MDRD) Af Amer 116 Est GFR (MDRD) Non-Af 96 BUN/Creatinine Ratio 14.7 Glucose 100 Calcium 8.0 L Crossmatch See Detail Code Visit Addendum: Dr. West I personally examined the patient and reviewed the chart. I agree with the above. 53-year-old female with previous coronary artery disease necessitating a stent to her LAD. She was on aspirin and Plavix as an outpatient and she saw her skilled helper last week he was recommending a cardiac cath coming this Saturday however her chest pain got worse and she presented to the hospital with that and dark bowel movement. In the ER they did a stool culture and was found to be negative for blood however an EGD did demonstrate a ulcer with a blood clot on it. We will continue with an IV PPI and allow cardiology to decide if they want to proceed with a cardiac cath or stress test. Her troponins are normal, however she states that the last time this happened her troponins were also normal and she needed a stent to her LAD she was transfused 2 units and her hemoglobin responded from 7.5 to 10.3. Inpatient E&M: 08160 Subs Hosp L2
[2019-02-14] MEDS: dexAMETHasone 10 MG/ML Vial IV (11:21)
--- NOTE | 2019-02-14 12:29 | PCM.PN.CARD ---
Subjectve: Per patient, her chest pain has improved. She only has symptoms lasting a few seconds at most. Objective: Vital Signs Temp Pulse Resp BP Pulse Ox 98.6 F 61 16 96/59 L 96 02/14/19 12:20 02/14/19 12:20 02/14/19 12:20 02/14/19 12:20 02/14/19 12:20 Oxygen Flow Rate (L/min) 2 Oxygen Delivery Method Room Air Weight: 62.7 kg Body Mass Index (BMI) 20.9 Intake and Output for Last 24 Hours 02/12/19 02/13/19 02/14/19 23:59 23:59 23:59 Intake Total 2871 / 2871 1530.4 / 1530.4 360 / 360 Output Total 600 / 600 Balance 2871 / 2871 930.4 / 930.4 360 / 360 General: Awake, Alert, Oriented x 3 HEENT: Atraumatic, Normocephalic Oral: Moist Mucosa Neck: Supple Lungs: Clear to auscultation Cardiovascular: Regular Rhythm, Normal S1, Normal S2 Extremities: No edema 02/14/19 05:25: Sodium 145, Potassium 3.5, Chloride 112 H, Carbon Dioxide 26.0, Anion Gap 7, BUN 10, Creatinine 0.68, Est GFR (MDRD) Af Amer 116, Est GFR (MDRD) Non-Af 96, BUN/Creatinine Ratio 14.7, Glucose 100, Calcium 8.0 L 02/14/19 05:25: WBC 5.4, RBC 3.31 L, Hgb 10.3 L, Hct 31.2 L, MCV 94.3, MCH 31.1, MCHC 33.0, RDW 13.6, RDW Differential 44.8 H, Plt Count 150, MPV 10.5 Rhythm: EKG: ECHO: Stress Test: Cardiac Cath: PCI: CT Surgery: Holter monitor: EPS: PPM: CXR: Chest CT Scan: Medical Necessity - Tobacco Use Smoking Status: Never smoker Tobacco Use: Secondhand Assessment/Plan 1. Peptic ulcer disease with blood loss. Status post transfusion. Surgery following. 2. History of coronary artery disease. Presently questionable symptoms with chest discomfort lasting only a few seconds. Doubt cardiac. Antiplatelet medications are on hold. Continue to monitor. If she continues to have the symptoms, then will recommend doing pharmacological stress test for evaluating for ischemia. No beta-blockers or nitrates at present in view of borderline blood pressure. 3. History of dyslipidemia.
[2019-02-15 03:00] VITALS: PULSE 58
[2019-02-15 03:35] VITALS: BP 101/55; PULSE 68; RESP 14; TEMP 36.8; O2SAT 98
[2019-02-15 06:25] LABS: Hematocrit 30.1 % (37-47); Mean Corp Hgb Conc 33.2 g/gl (32-36); Mean Corpuscular Hgb 31.4 pg (27.0-32.0); Mean Corpuscular Volume 94.7 fL (81-99); Mean Platelet Vol. 10.4 fl (6.2-12.0); Platelet Count 157 K/mm3 (150-450); RBC Distribution Width SD 42.8 fl (35.1-43.9); Red Blood Count 3.18 M/mm3 (4.2-5.4); White Blood Count 7.8 K/mm3 (4.4-11.0)
[2019-02-15 06:28] LABS: Scan Indicated on CBC? Y/N NO
[2019-02-15 06:48] LABS: Anion Gap 6 (5-15); BUN 16 mg/dL (7-18); Calcium,Total 8.4 mg/dL (8.5-10.1); Chloride 111 mmol/L (98-107); EST Glomerular Filtration Rate 94 mL/min (>60); Est Glom Filt Rate - Afr Amer 113 mL/min (>60); Glucose 93 mg/dL (74-106); Potassium 3.4 mmol/L (3.5-5.1); Sodium Level 144 mmol/L (136-145)
[2019-02-15] MEDS: Sucralfate 1 GM Tablet PO ×2 (06:55→11:00)
[2019-02-15 07:51] VITALS: PULSE 70
--- NOTE | 2019-02-15 08:52 | PCM.PN.SRG ---
Patient Problems: Active and Suspected Problems (Last Reviewed 02/12/19 @ 10:39 by Alberta Adan PA-C) Melena (Acute) Anemia (Acute) Palpable abdominal aorta (Acute) Chest pain (Acute) Subjective: Patient reports that her headache is gone. She does feel intermittent squeezing in the upper abdomen and chest. Patient reports no bowel movement since Saturday. She is passing flatus. She also describes some left lower quadrant tenderness. - Physical Exam General: Alert, Oriented x3, Cooperative HEENT: Atraumatic Neck: No JVD Lungs: Normal air movement Cardiovascular: Regular rate, Regular Rhythm Abdomen: Soft, Non-Distended Vital Signs Temp Pulse Resp BP Pulse Ox 98.2 F 70 14 101/55 L 98 02/15/19 03:35 02/15/19 07:51 02/15/19 03:35 02/15/19 03:35 02/15/19 03:35 Oxygen Flow Rate (L/min) 2 Oxygen Delivery Method Room Air Weight: 138 lb 3.677 oz Body Mass Index (BMI) 20.9 Intake and Output for Last 24 Hours 02/13/19 02/14/19 02/15/19 23:59 23:59 23:59 Intake Total 1530.4 / 1530.4 1087 / 1087 400 / 400 Output Total 600 / 600 Balance 930.4 / 930.4 1087 / 1087 400 / 400 Laboratory Tests Past 24 Hrs 02/15/19 02/15/19 05:45 05:45 WBC 7.8 RBC 3.18 L Hgb 10.0 L Hct 30.1 L MCV 94.7 MCH 31.4 MCHC 33.2 RDW 13.0 RDW Differential 42.8 Plt Count 157 MPV 10.4 Sodium 144 Potassium 3.4 L Chloride 111 H Carbon Dioxide 27.0 Anion Gap 6 BUN 16 Creatinine 0.70 Estim Creat Clear Calc 92.00 Est GFR (MDRD) Af Amer 113 Est GFR (MDRD) Non-Af 94 BUN/Creatinine Ratio 23.0 H Glucose 93 Calcium 8.4 L Medical Necessity - Tobacco Use Smoking Status: Never smoker Tobacco Use: Secondhand Assessment/Plan All Active Problems (Last Reviewed 02/12/19 @ 10:39 by Alberta Adan PA-C) Melena (Acute) Anemia (Acute) Palpable abdominal aorta (Acute) Chronic pain (Acute) Chest pain (Acute) 53-year-old female with GI bleed and gastric ulcer 1. Patient has been taking PPI and Carafate. I will advance her to a regular diet. She has not had a bowel movement since Saturday and I believe her left lower quadrant pain may be related to constipation. I will order a dose of MiraLAX. 2. Hemoglobin is stable and she is tolerating a diet. She is okay for discharge from my standpoint. Follow-up with Dr. Espitia. Dallas Betancourt MD Pager: [facility] [address] [place] [address], [address] [place] [address] Office:
--- NOTE | 2019-02-15 08:55 | PN.SURG_ITS ---
Patient Problems: Active and Suspected Problems (Last Reviewed 02/12/19 @ 10:39 by Alberta Adan PA-C) Melena (Acute) Anemia (Acute) Palpable abdominal aorta (Acute) Chest pain (Acute) Subjective: Patient reports that her headache is gone. She does feel intermittent squeezing in the upper abdomen and chest. Patient reports no bowel movement since Saturday. She is passing flatus. She also describes some left lower quadrant tenderness. - Physical Exam General: Alert, Oriented x3, Cooperative HEENT: Atraumatic Neck: No JVD Lungs: Normal air movement Cardiovascular: Regular rate, Regular Rhythm Abdomen: Soft, Non-Distended Vital Signs Temp Pulse Resp BP Pulse Ox 98.2 F 70 14 101/55 L 98 02/15/19 03:35 02/15/19 07:51 02/15/19 03:35 02/15/19 03:35 02/15/19 03:35 Oxygen Flow Rate (L/min) 2 Oxygen Delivery Method Room Air Weight: 138 lb 3.677 oz Body Mass Index (BMI) 20.9 Intake and Output for Last 24 Hours 02/13/19 02/14/19 02/15/19 23:59 23:59 23:59 Intake Total 1530.4 / 1530.4 1087 / 1087 400 / 400 Output Total 600 / 600 Balance 930.4 / 930.4 1087 / 1087 400 / 400 Laboratory Tests Past 24 Hrs 02/15/19 02/15/19 05:45 05:45 WBC 7.8 RBC 3.18 L Hgb 10.0 L Hct 30.1 L MCV 94.7 MCH 31.4 MCHC 33.2 RDW 13.0 RDW Differential 42.8 Plt Count 157 MPV 10.4 Sodium 144 Potassium 3.4 L Chloride 111 H Carbon Dioxide 27.0 Anion Gap 6 BUN 16 Creatinine 0.70 Estim Creat Clear Calc 92.00 Est GFR (MDRD) Af Amer 113 Est GFR (MDRD) Non-Af 94 BUN/Creatinine Ratio 23.0 H Glucose 93 Calcium 8.4 L Medical Necessity - Tobacco Use Smoking Status: Never smoker Tobacco Use: Secondhand Assessment/Plan All Active Problems (Last Reviewed 02/12/19 @ 10:39 by Alberta Adan PA-C) Melena (Acute) Anemia (Acute) Palpable abdominal aorta (Acute) Chronic pain (Acute) Chest pain (Acute) 53-year-old female with GI bleed and gastric ulcer 1. Patient has been taking PPI and Carafate. I will advance her to a regular diet. She has not had a bowel movement since Saturday and I believe her left lower quadrant pain may be related to constipation. I will order a dose of MiraLAX. 2. Hemoglobin is stable and she is tolerating a diet. She is okay for discharge from my standpoint. Follow-up with Dr. Espitia. Dallas Betancourt MD Pager: [facility] [address] [place] [address], [address] [place] [address] Office:
[2019-02-15] MEDS: Polyethylene Glycol 3350 17 GM PACKET PO (09:14)
[2019-02-15 09:35] VITALS: BP 114/68; PULSE 61; RESP 16; TEMP 37.2; O2SAT 97
--- NOTE | 2019-02-15 10:50 | DCINST_ITS ---
- Discharge Diagnoses Current Active Problems: Current Active and Chronic Problems (Last Reviewed 02/12/19 @ 10:39 by Alberta Adan PA-C) CAD (coronary artery disease) (Chronic) Anemia (Acute) Chest pain (Acute) You will use the following diet at home:: Cardiac Discharge Activity: Return to Normal Activity Call your doctor if you observe: Shortness of breath, Dizziness, Fainting spells, Chest pain Allergies/Adverse Reactions: Allergies No Known Allergies Allergy (Verified 02/11/19 17:24) Medications to take at Discharge Aspirin [Adult Low Dose Aspirin EC] 81 mg PO DAILY 08/30/16 Clopidogrel Bisulfate [Clopidogrel] 75 mg PO DAILY 02/11/19 Metoprolol Tartrate [Lopressor (beta brijesh)] 25 mg PO BID 02/11/19 Atorvastatin Calcium 10 mg PO QHS #30 tablet 02/15/19 Pantoprazole Sodium [Protonix] 40 mg PO BID #60 tablet 02/15/19 Polyethylene Glycol 3350 [Miralax] 17 gm PO DAILY #30 packet 02/15/19 Sucralfate [Carafate] 1 gm PO 1HR_ACHS #120 tablet 02/15/19 The following prescriptions were given: Atorvastatin Calcium 10 mg PO QHS #30 tablet Polyethylene Glycol 3350 [Miralax] 17 gm PO DAILY #30 packet Sucralfate [Carafate] 1 gm PO 1HR_ACHS #120 tablet Pantoprazole Sodium [Protonix] 40 mg PO BID #60 tablet Primary Care Physician: Martir Meeks MD [Primary Care Provider] - Please follow up with your Primary Care Physician in: 1 Week Test Results: Test results from this visit will be discussed in further detail at your follow- up appointment, if applicable. Please Follow Up With: Fracisco Thao MD When: Heart Cath, as scheduled Saturday02/18/19 Please Follow Up With: Remberto Espitia MD When: 1-2 Weeks Proposed Discharge Date: 02/15/19
--- NOTE | 2019-02-15 10:51 | PCM.DC.SUM ---
<Staci Saucedo - Last Filed: 02/15/19 11:05> Discharge Date and Diagnosis Date of Admission: 02/11/19 Date of Discharge: 02/15/19 - Primary Discharge Diagnosis Active and Suspected Problems (Last Reviewed 02/12/19 @ 10:39 by Alberta Adan PA-C) 1. Chest pain, shortness of breath in the context of CAD with history of PCI to LAD- ACS ruled out 2. Acute anemia secondary to acute upper GI bleed as a result of gastric ulcer 3. Acute migraine, resolved - Secondary Discharge Diagnosis Chronic Problems (Last Reviewed 02/12/19 @ 10:39 by Alberta Adan PA-C) CAD (coronary artery disease) (Chronic) Presence of stent in coronary artery (Chronic ~02/27/16) PTCA/RON to LAD 02/27/16 Atherosclerotic heart disease of [place] coronary artery without angina pectoris (Chronic) Hospital Course and Treatment Imaging Results: Diagnostic Data Chest CTA 02/11/19 17:46 IMPRESSION: No evidence of pulmonary embolism. Biapical scarring. Electronically Signed: Mendel Ram, at 18:57 EDT Tel , Service support , Chest X-Ray 02/12/19 05:55 IMPRESSION: Normal x-ray examination of the chest. No acute findings in the lungs. Not much change since yesterday's study Electronically Signed: Brad Watson MD at 6:48 EDT Tel , Service support , Abdomen X-Ray 02/12/19 12:10 IMPRESSION: Normal x-ray examination of the abdomen and pelvis. Electronically Signed: Terence Reich, at 12:59 EDT , Service support , Dr. Thao- Cardiology Dr. Espitia- General Surgery Operations: None Procedures: 2-D Echocardiogram, EGD Summary of Care Provided: The patient is a 53 year old F admitted 02/11/2019 due to chest pain and shortness of breath. 1. Chest pain, shortness of breath in the context of CAD with history of PCI to LAD-normal stress test in September. Troponin negative. Echocardiogram completed and showed an EF of 65%, RVSP estimated to be [address] Thao. Patient has outpatient cardiac catheterization scheduled for 02/18/2019. Spoke with cardiology, Dr. Upton who feels this is less likely cardiac etiology and patient can go home and continue scheduled outpatient cardiac catheterization. General surgery okay with resuming aspirin, Plavix at discharge follow-up with primary care provider in 1 week. Follow-up with cardiology for cardiac catheterization as scheduled this coming Saturday. Continue aspirin, Plavix, beta-brijesh. Home metoprolol regimen decreased to 12.5 mg p.o. twice daily given borderline low blood pressure. Additionally added on low-dose statin. 2. Acute anemia secondary to acute upper GI bleed as a result of gastric ulcer-Dr. Espitia consulted. Patient underwent EGD which showed normal esophagus, nonbleeding gastric ulcer with adherent clot. Continue twice daily PPI and Carafate regimen. Repeat upper endoscopy in 2 months. S/P 2 units PRBC for hemoglobin 7.5. Hemoglobin now 10.0. Gastric biopsy shows chronic gastritis, H. pylori and pathology pending. Follow-up with Dr. Espitia in 1 to 2 weeks. 3. Acute migraine-history of intermittent migraines. Resolved following IV Toradol and IV Decadron x1. Recommend outpatient follow-up with recurrent migraine. General: Alert, Oriented x3, Cooperative HEENT: Atraumatic, PERRLA, EOMI, Normocephalic Neck: Supple, No JVD, Negative Carotid Bruits Lungs: Clear to auscultation, Normal air movement Cardiovascular: Regular rate, Regular Rhythm, Normal S1, Normal S2, No murmurs Abdomen: Bowel Sounds Present, Soft, Non Tender, Non-Distended Extremities: No clubbing, No cyanosis, No edema, Capillary Refill Less than 3 Seconds Skin: No rashes, No breakdown Musculoskeletal: No Tenderness to Palpation of Joints or Extremities Neurological: Cranial nerves II-XII grossly intact, Neuro grossly intact Psych/Mental Status: Flat Affect Patient seen and examined prior to discharge. Physical assessment as noted above. Patient is stable for discharge with follow up recommendations as noted above. This patient was seen by PA Ramirez under the supervision of Dr. West. - Physical Exam Vital Signs Temp Pulse Resp BP Pulse Ox 98.9 F 61 16 114/68 97 02/15/19 09:35 02/15/19 09:35 02/15/19 09:35 02/15/19 09:35 02/15/19 09:35 Oxygen Flow Rate (L/min) 2 Oxygen Delivery Method Room Air Weight: 138 lb 3.677 oz Body Mass Index (BMI) 20.9 Intake and Output for Last 24 Hours 02/13/19 02/14/19 02/15/19 23:59 23:59 23:59 Intake Total 1530.4 / 1530.4 1087 / 1087 400 / 400 Output Total 600 / 600 Balance 930.4 / 930.4 1087 / 1087 400 / 400 Laboratory Tests Past 24 Hrs 02/15/19 02/15/19 05:45 05:45 WBC 7.8 RBC 3.18 L Hgb 10.0 L Hct 30.1 L MCV 94.7 MCH 31.4 MCHC 33.2 RDW 13.0 RDW Differential 42.8 Plt Count 157 MPV 10.4 Sodium 144 Potassium 3.4 L Chloride 111 H Carbon Dioxide 27.0 Anion Gap 6 BUN 16 Creatinine 0.70 Estim Creat Clear Calc 92.00 Est GFR (MDRD) Af Amer 113 Est GFR (MDRD) Non-Af 94 BUN/Creatinine Ratio 23.0 H Glucose 93 Calcium 8.4 L Discharge Diet: Low fat/ Low Cholesterol Discharge Activity: Return to Normal Activity Call your doctor if you observe: Shortness of breath, Dizziness, Fainting spells, Chest pain Home Medications: Medications to take at Discharge Aspirin [Adult Low Dose Aspirin EC] 81 mg PO DAILY 08/30/16 Clopidogrel Bisulfate [Clopidogrel] 75 mg PO DAILY 02/11/19 Atorvastatin Calcium 10 mg PO QHS #30 tablet 02/15/19 Metoprolol Tartrate [Lopressor (beta brijesh)] 12.5 mg PO BID #0 02/15/19 Pantoprazole Sodium [Protonix] 40 mg PO BID #60 tablet 02/15/19 Polyethylene Glycol 3350 [Miralax] 17 gm PO DAILY #30 packet 02/15/19 Sucralfate [Carafate] 1 gm PO 1HR_ACHS #120 tablet 02/15/19 Following Prescrptions Were Given to Patient: Atorvastatin Calcium 10 mg PO QHS #30 tablet Polyethylene Glycol 3350 [Miralax] 17 gm PO DAILY #30 packet Sucralfate [Carafate] 1 gm PO 1HR_ACHS #120 tablet Pantoprazole Sodium [Protonix] 40 mg PO BID #60 tablet Primary Care Physician: Martir Meeks MD [Primary Care Provider] - Please follow up with your Primary Care Physician in: 1 Week Please Follow Up With: Fracisco Taho MD When: Heart Cath, as scheduled Saturday02/18/19 Please Follow Up With: Remberto Espitia MD When: 1-2 Weeks Disposition: Home Minutes spent on discharge:: 35 Patient Condition:: Stable Medical Necessity - Tobacco Use Smoking Status: Never smoker Tobacco Use: Secondhand Meaningful Use Info Meaningful Use Diagnoses (Choose all that apply): None applicable <Baljit West F - Last Filed: 02/15/19 11:23> Discharge Date and Diagnosis - Secondary Discharge Diagnosis Chronic Problems (Last Updated 02/15/19 @ 10:52 by PA Ramirez) CAD (coronary artery disease) (Chronic) Presence of stent in coronary artery (Chronic ~02/27/16) PTCA/RON to LAD 02/27/16 Atherosclerotic heart disease of [place] coronary artery without angina pectoris (Chronic) Hospital Course and Treatment Summary of Care Provided: The patient is a 53 year old F [] - Physical Exam Vital Signs Temp Pulse Resp BP Pulse Ox 98.9 F 61 16 114/68 97 02/15/19 09:35 02/15/19 09:35 02/15/19 09:35 02/15/19 09:35 02/15/19 09:35 Oxygen Flow Rate (L/min) 2 Oxygen Delivery Method Room Air Weight: 138 lb 3.677 oz Body Mass Index (BMI) 20.9 Intake and Output for Last 24 Hours 02/13/19 02/14/19 02/15/19 23:59 23:59 23:59 Intake Total 1530.4 / 1530.4 1087 / 1087 400 / 400 Output Total 600 / 600 Balance 930.4 / 930.4 1087 / 1087 400 / 400 Laboratory Tests Past 24 Hrs 02/15/19 02/15/19 05:45 05:45 WBC 7.8 RBC 3.18 L Hgb 10.0 L Hct 30.1 L MCV 94.7 MCH 31.4 MCHC 33.2 RDW 13.0 RDW Differential 42.8 Plt Count 157 MPV 10.4 Sodium 144 Potassium 3.4 L Chloride 111 H Carbon Dioxide 27.0 Anion Gap 6 BUN 16 Creatinine 0.70 Estim Creat Clear Calc 92.00 Est GFR (MDRD) Af Amer 113 Est GFR (MDRD) Non-Af 94 BUN/Creatinine Ratio 23.0 H Glucose 93 Calcium 8.4 L Code Visit Addendum: Dr. West I personally examined the patient and reviewed the chart. I agree with the above. 53-year-old female with previous CAD necessitating a stent to her LAD. She was on aspirin and Plavix as an outpatient and she saw her pastry decorator last week he was recommending a cardiac cath this Saturday. She got worse with her chest pain presented to the hospital and had a dark bowel movement. She was found to have a gastric ulcer that was injected because there is a clot on the middle of it. She was started on a PPI as well as Carafate. In discussion with surgery it was okay for her to continue her aspirin and Plavix as long as she was on a PPI. And in discussion with cardiology it was felt that she was safe to go home and come to her previously scheduled outpatient cardiac cath. She was also wanting to go home today and I discussed this with both her and her her about the risks and benefits and they were in agreement to go home. Her hemoglobin has remained stable after her 2 units of packed red blood cells. Inpatient E&M: 64086 Disch Hosp
--- NOTE | 2019-02-15 10:55 | DS.PCM_ITS ---
<Staci Saucedo - Last Filed: 02/15/19 11:05> Discharge Date and Diagnosis Date of Admission: 02/11/19 Date of Discharge: 02/15/19 - Primary Discharge Diagnosis Active and Suspected Problems (Last Reviewed 02/12/19 @ 10:39 by Alberta Adan PA-C) 1. Chest pain, shortness of breath in the context of CAD with history of PCI to LAD- ACS ruled out 2. Acute anemia secondary to acute upper GI bleed as a result of gastric ulcer 3. Acute migraine, resolved - Secondary Discharge Diagnosis Chronic Problems (Last Reviewed 02/12/19 @ 10:39 by Alberta Adan PA-C) CAD (coronary artery disease) (Chronic) Presence of stent in coronary artery (Chronic ~02/27/16) PTCA/RON to LAD 02/27/16 Atherosclerotic heart disease of [place] coronary artery without angina pectoris (Chronic) Hospital Course and Treatment Imaging Results: Diagnostic Data Chest CTA 02/11/19 17:46 IMPRESSION: No evidence of pulmonary embolism. Biapical scarring. Electronically Signed: Mendel Ram, at 18:57 EDT Tel , Service support , Chest X-Ray 02/12/19 05:55 IMPRESSION: Normal x-ray examination of the chest. No acute findings in the lungs. Not much change since yesterday's study Electronically Signed: Brad Watson MD at 6:48 EDT Tel , Service support , Abdomen X-Ray 02/12/19 12:10 IMPRESSION: Normal x-ray examination of the abdomen and pelvis. Electronically Signed: Terence Reich, at 12:59 EDT , Service support , Dr. Thao- Cardiology Dr. Espitia- General Surgery Operations: None Procedures: 2-D Echocardiogram, EGD Summary of Care Provided: The patient is a 53 year old F admitted 02/11/2019 due to chest pain and shortness of breath. 1. Chest pain, shortness of breath in the context of CAD with history of PCI to LAD-normal stress test in September. Troponin negative. Echocardiogram completed and showed an EF of 65%, RVSP estimated to be [address] Thao. Patient has outpatient cardiac catheterization scheduled for 02/18/2019. Spoke with cardiology, Dr. Upton who feels this is less likely cardiac etiology and patient can go home and continue scheduled outpatient cardiac catheterization. General surgery okay with resuming aspirin, Plavix at discharge follow-up with primary care provider in 1 week. Follow-up with cardiology for cardiac catheterization as scheduled this coming Saturday. Continue aspirin, Plavix, beta-brijesh. Home metoprolol regimen decreased to 12.5 mg p.o. twice daily given borderline low blood pressure. Additionally added on low-dose statin. 2. Acute anemia secondary to acute upper GI bleed as a result of gastric ulcer- Dr. Espitia consulted. Patient underwent EGD which showed normal esophagus, nonbleeding gastric ulcer with adherent clot. Continue twice daily PPI and Carafate regimen. Repeat upper endoscopy in 2 months. S/P 2 units PRBC for hemoglobin 7.5. Hemoglobin now 10.0. Gastric biopsy shows chronic gastritis, H. pylori and pathology pending. Follow-up with Dr. Espitia in 1 to 2 weeks. 3. Acute migraine-history of intermittent migraines. Resolved following IV Toradol and IV Decadron x1. Recommend outpatient follow-up with recurrent migraine. General: Alert, Oriented x3, Cooperative HEENT: Atraumatic, PERRLA, EOMI, Normocephalic Neck: Supple, No JVD, Negative Carotid Bruits Lungs: Clear to auscultation, Normal air movement Cardiovascular: Regular rate, Regular Rhythm, Normal S1, Normal S2, No murmurs Abdomen: Bowel Sounds Present, Soft, Non Tender, Non-Distended Extremities: No clubbing, No cyanosis, No edema, Capillary Refill Less than 3 Seconds Skin: No rashes, No breakdown Musculoskeletal: No Tenderness to Palpation of Joints or Extremities Neurological: Cranial nerves II-XII grossly intact, Neuro grossly intact Psych/Mental Status: Flat Affect Patient seen and examined prior to discharge. Physical assessment as noted above. Patient is stable for discharge with follow up recommendations as noted above. This patient was seen by PA Ramirez under the supervision of Dr. West. - Physical Exam Vital Signs Temp Pulse Resp BP Pulse Ox 98.9 F 61 16 114/68 97 02/15/19 09:35 02/15/19 09:35 02/15/19 09:35 02/15/19 09:35 02/15/19 09:35 Oxygen Flow Rate (L/min) 2 Oxygen Delivery Method Room Air Weight: 138 lb 3.677 oz Body Mass Index (BMI) 20.9 Intake and Output for Last 24 Hours 02/13/19 02/14/19 02/15/19 23:59 23:59 23:59 Intake Total 1530.4 / 1530.4 1087 / 1087 400 / 400 Output Total 600 / 600 Balance 930.4 / 930.4 1087 / 1087 400 / 400 Laboratory Tests Past 24 Hrs 02/15/19 02/15/19 05:45 05:45 WBC 7.8 RBC 3.18 L Hgb 10.0 L Hct 30.1 L MCV 94.7 MCH 31.4 MCHC 33.2 RDW 13.0 RDW Differential 42.8 Plt Count 157 MPV 10.4 Sodium 144 Potassium 3.4 L Chloride 111 H Carbon Dioxide 27.0 Anion Gap 6 BUN 16 Creatinine 0.70 Estim Creat Clear Calc 92.00 Est GFR (MDRD) Af Amer 113 Est GFR (MDRD) Non-Af 94 BUN/Creatinine Ratio 23.0 H Glucose 93 Calcium 8.4 L Discharge Diet: Low fat/ Low Cholesterol Discharge Activity: Return to Normal Activity Call your doctor if you observe: Shortness of breath, Dizziness, Fainting spells, Chest pain Home Medications: Medications to take at Discharge Aspirin [Adult Low Dose Aspirin EC] 81 mg PO DAILY 08/30/16 Clopidogrel Bisulfate [Clopidogrel] 75 mg PO DAILY 02/11/19 Atorvastatin Calcium 10 mg PO QHS #30 tablet 02/15/19 Metoprolol Tartrate [Lopressor (beta brijesh)] 12.5 mg PO BID #0 02/15/19 Pantoprazole Sodium [Protonix] 40 mg PO BID #60 tablet 02/15/19 Polyethylene Glycol 3350 [Miralax] 17 gm PO DAILY #30 packet 02/15/19 Sucralfate [Carafate] 1 gm PO 1HR_ACHS #120 tablet 02/15/19 Following Prescrptions Were Given to Patient: Atorvastatin Calcium 10 mg PO QHS #30 tablet Polyethylene Glycol 3350 [Miralax] 17 gm PO DAILY #30 packet Sucralfate [Carafate] 1 gm PO 1HR_ACHS #120 tablet Pantoprazole Sodium [Protonix] 40 mg PO BID #60 tablet Primary Care Physician: Martir Meeks MD [Primary Care Provider] - Please follow up with your Primary Care Physician in: 1 Week Please Follow Up With: Fracisco Thao MD When: Heart Cath, as scheduled Saturday02/18/19 Please Follow Up With: Remberto Espitia MD When: 1-2 Weeks Disposition: Home Minutes spent on discharge:: 35 Patient Condition:: Stable Medical Necessity - Tobacco Use Smoking Status: Never smoker Tobacco Use: Secondhand Meaningful Use Info Meaningful Use Diagnoses (Choose all that apply): None applicable <Baljit West F - Last Filed: 02/15/19 11:23> Discharge Date and Diagnosis - Secondary Discharge Diagnosis Chronic Problems (Last Updated 02/15/19 @ 10:52 by PA Ramirez) CAD (coronary artery disease) (Chronic) Presence of stent in coronary artery (Chronic ~02/27/16) PTCA/RON to LAD 02/27/16 Atherosclerotic heart disease of [place] coronary artery without angina pectoris (Chronic) Hospital Course and Treatment Summary of Care Provided: The patient is a 53 year old F [] - Physical Exam Vital Signs Temp Pulse Resp BP Pulse Ox 98.9 F 61 16 114/68 97 02/15/19 09:35 02/15/19 09:35 02/15/19 09:35 02/15/19 09:35 02/15/19 09:35 Oxygen Flow Rate (L/min) 2 Oxygen Delivery Method Room Air Weight: 138 lb 3.677 oz Body Mass Index (BMI) 20.9 Intake and Output for Last 24 Hours 02/13/19 02/14/19 02/15/19 23:59 23:59 23:59 Intake Total 1530.4 / 1530.4 1087 / 1087 400 / 400 Output Total 600 / 600 Balance 930.4 / 930.4 1087 / 1087 400 / 400 Laboratory Tests Past 24 Hrs 02/15/19 02/15/19 05:45 05:45 WBC 7.8 RBC 3.18 L Hgb 10.0 L Hct 30.1 L MCV 94.7 MCH 31.4 MCHC 33.2 RDW 13.0 RDW Differential 42.8 Plt Count 157 MPV 10.4 Sodium 144 Potassium 3.4 L Chloride 111 H Carbon Dioxide 27.0 Anion Gap 6 BUN 16 Creatinine 0.70 Estim Creat Clear Calc 92.00 Est GFR (MDRD) Af Amer 113 Est GFR (MDRD) Non-Af 94 BUN/Creatinine Ratio 23.0 H Glucose 93 Calcium 8.4 L Code Visit Addendum: Dr. West I personally examined the patient and reviewed the chart. I agree with the above. 53-year-old female with previous CAD necessitating a stent to her LAD. She was on aspirin and Plavix as an outpatient and she saw her skidder loader last week he was recommending a cardiac cath this Saturday. She got worse with her chest pain presented to the hospital and had a dark bowel movement. She was found to have a gastric ulcer that was injected because there is a clot on the middle of it. She was started on a PPI as well as Carafate. In discussion with surgery it was okay for her to continue her aspirin and Plavix as long as she was on a PPI. And in discussion with cardiology it was felt that she was safe to go home and come to her previously scheduled outpatient cardiac cath. She was also wanting to go home today and I discussed this with both her and her her about the risks and benefits and they were in agreement to go home. Her hemoglobin has remained stable after her 2 units of packed red blood cells. Inpatient E&M: [id number] Disch Hosp
== END 2019-02-15 12:33 | disposition home or self-care (01) | DRG 302 ==
LOC: ED 20:24 → PCU 20:50
PROVIDERS: Internal Medicine; Internal Medicine Cardiovascular Disease; Nurse Practitioner Family; Surgery; Admitting Provider Internal Medicine; Emergency Provider Emergency Medicine; Family Provider Internal Medicine; PCP Internal Medicine; Referring Provider Internal Medicine; Visit Provider Family Medicine
PROC: 0DJ08ZZ Inspection of Upper Intestinal Tract, Via Natural or Artificial Opening Endoscopic (ICD-10-PCS; CPT 43235; principal; 2019-02-12 10:55)
DX: I25.10 Atherosclerotic heart disease of native coronary artery without angina pectoris (principal); K25.4 Chronic or unspecified gastric ulcer with hemorrhage; D62 Acute posthemorrhagic anemia; K29.50 Unspecified chronic gastritis without bleeding; G43.909 Migraine, unspecified, not intractable, without status migrainosus; I25.2 Old myocardial infarction; Z95.5 Presence of coronary angioplasty implant and graft; Z77.22 Contact with and (suspected) exposure to environmental tobacco smoke (acute) (chronic); Z79.02 Long term (current) use of antithrombotics/antiplatelets; Z79.82 Long term (current) use of aspirin; Z79.899 Other long term (current) drug therapy
CPT/HCPCS: 36415; 71045; 71275; 74019; 80048; 80061; 81001; 81025; 82274; 83735; 84443; 84484; 85014; 85018; 85025; 85027; 85610; 85730; 86850; 86900; 86920; 86922; 88305; 88342; 93005; 93306; 93978; 99285; J7030; J7040; J7120; P9016; Q9967; A4216; J2405

== ENCOUNTER → 2019-02-18 07:18 | Day surgery (SDC) | payer OTHER, SELFPAY ==
--- NOTE | 2019-02-09 06:14 | HP_ITS ---
HPI HPI History of Present Illness Surgical H&P: Yes Details: This is a 53-year-old white female who presents today for outpatient cardiovascular follow-up. Since her previous visit on 02-14-17 she states that she underwent evaluation care at [facility] in September 2017 for chest discomfort. This included a transthoracic echocardiogram and exercise tolerance test/imaging study. The results are as noted below. As the studies were reportedly unremarkable she decided she did not need to keep her subsequent outpatient cardiovascular visit. However the present time she has noted recently that she has been having concerning symptoms similar to what she had before her original PCI. She states that she has noted back discomfort which is waxed and waned. She also notes an element of anterior chest discomfort. She states she has not necessarily had radiation to the neck or upper extremity. There is been no clear-cut associated nausea, emesis, or diaphoresis. There is been no orthopnea, PND, or peripheral pitting edema. There is been no near syncope or syncope. She has not used her nitroglycerin sublingual for this as she has wanted to avoid the associated concerns of headaches superimposed upon her history of migraine headaches. She states that she remains on her aspirin therapy. However she is no longer on antiplatelet therapy. She states that she has discontinued her statin therapy as she was sensing myalgias. She did not attempt a lower dose or an alternative statin. She had an ECG in the office today. She was noted to be in sinus rhythm. There were no acute ECG changes. 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 Accompanied by: Self Allergies No Known Allergies Allergy (Verified 02/09/19 16:10) Medications Aspirin [Adult Low Dose Aspirin EC] 81 mg PO DAILY 08/30/16 [History Confirmed 02/09/19] clopidogrel 75 mg tablet 75 mg PO DAILY #30 tab 02/09/19 [Rx Confirmed 02/09/19] metoprolol tartrate 25 mg tablet 25 mg PO BID #60 tab 02/09/19 [Rx Confirmed 02/09/19] PFSH Medical History Atherosclerotic heart disease of [place] coronary artery without angina pectoris (Chronic) Chronic pain (Acute) Chest pain (Acute) CAD (coronary artery disease) (Inactive) Surgical History Presence of stent in coronary artery (Chronic ~02/27/16) Presence of coronary angioplasty implant and graft (Chronic ~02/27/16) History of breast augmentation (Resolved) History of oophorectomy, unilateral (Resolved) S/P PTCA (percutaneous transluminal coronary angioplasty) (Inactive) Family History Mother Heart disease Social History Smoking Status: Never smoker alcohol intake: current details: occasional substance use type: does not use ROS Const Const: Negative for fatigue, weakness, frequent falls, excessive sweating, weight gain or weight loss Eyes Eyes: Negative for transient loss of vision, blurry vision or change in vision ENT ENT: Negative for dizziness or balance problems Cardio Chest Pain: Yes Character: other (strong ache) Onset: at rest, exercise Location: left chest, other (back pain b/w shoulder blades similar to previous pain prior to stent) Duration: hours Palpitations: No Edema: None Muscle aches with walking: None Resp Respiratory: Positive for SOB with activity (slight); negative for SOB at rest GI GI: Negative vomiting or vomiting blood/hematemesis : Negative for hematuria Musc Musc: Negative for muscle aches/ myalgia, muscle weakness, joint pain or balance problems Skin Skin: Negative non-healing lesions or rash Neuro Neuro: Positive for near syncope (with migraine); negative for dizziness, orthostatic symptoms, frequent falls, weakness or blurry vision Julio Cesar Hematologic/Lymphatic: Negative for easy bleeding Endo Endo: Negative for fatigue or excessive sweating Psych Psych: Negative for anxiety or depression Allergy Allergy/Immunology: Negative for hives, Negative for rash Cardiology Exam Const Appearance: cooperative, healthy appearing, comfortable, no acute distress, well developed and well groomed Nutritional Appearance: thin Orientation: alert, awake and oriented x3 Head Head: normal to inspection, normocephalic and atraumatic Ears: hearing grossly normal bilaterally Nose: external nose normal Face and Sinus: face symmetric Mouth: oral mucosae normal Teeth and gingiva: dentition normal Eyes Eyelids: eyelids normal Conjunctivae: conjunctivae normal EOM: EOM intact bilaterally Neck Neck: normal visual inspection and full ROM Carotids: normal carotid upstroke Chest Chest inspection: normal inspection of the chest, symmetric chest movement and normal respiratory effort Auscultation: Bilateral: Clear to Auscultation Cardio Palpation: normal PMI Rate: regular rate Rhythm: regular rhythm Heart sounds: S1 normal, S2 normal and positive S4 GI GI: normal to inspection, soft and bowel sounds present Neuro General: alert, awake, oriented x3, gait normal, moves all extremities, no focal sensory deficit and no focal motor deficits Skin Skin: no rashes or lesions noted Extremities Pulses: Normal: Right Femoral Pulse, Left Femoral Pulse, Right Dorsalis Pedis Pulse, Left Dorsalis Pedis Pulse, Right Posterior Tibial Pulse, Left Posterior Tibial Pulse, Right Radial Pulse, Left Radial Pulse Lower Extremity Edema: None: Bilateral Psych Psychological: normal affect Assessment & Plan 1. Atherosclerosis of [place] coronary artery of [place] heart without angina pectoris I25.10 Plan At the present time she will continue evaluation care. Based upon her symptoms which she states are similar to what she had before and her level of concern discussion was held with her as how to approach further evaluation or care noting that she has undergone an exercise tolerance test/imaging study in 2018. An additional exercise tolerance test/imaging study versus direct evaluation with diagnostic cardiac catheterization was discussed with her. The pros and cons and risks and benefits of each procedure were discussed. At the present time she states she would rather proceed with more definitive evaluation with a repeat diagnostic cardiac catheterization. Thus at the present time she will continue medical management. She will add antiplatelet therapy with clopidogrel/Plavix to her regimen. She will be placed on metoprolol 25 mg p.o. twice daily. She will proceed with laboratory studies. She had an ECG in the office today which demonstrated the findings as noted above. She will have a transthoracic echocardiogram to reassess her left ventricular wall motion systolic function. She will be scheduled for upcoming diagnostic cardiac catheterization. In the interim if she has any concerning issues, etc., she knows to notify the office or present to the hospital for further evaluation. Orders Orders: 12 Lead EKG performed by BMS Today Left Heart Cath/COR/LV Percut Today Basic Metabolic Profile (BMP) Today Partial Thromboplast Time Today Prothrombin Time w/INR Today Echo Complete Today CBC W/Diff, Automated Today Chest PA and Lateral Today Lipid Profile Today Liver Profile Today 2. Presence of stent in coronary artery Z95.5 PTCA/RON to LAD 02/27/16 Plan She will continue evaluation care as noted above. Orders Orders: 12 Lead EKG performed by BMS Today Left Heart Cath/COR/LV Percut Today Basic Metabolic Profile (BMP) Today Partial Thromboplast Time Today Prothrombin Time w/INR Today Echo Complete Today CBC W/Diff, Automated Today Chest PA and Lateral Today Lipid Profile Today Liver Profile Today 3. Angina pectoris I20.9 Plan Again her symptoms are concerning, based upon her symptom history being similar to what she had before her LAD PCI, for an angina pectoris history. Thus she will continue evaluation care as noted above. Orders Orders: Left Heart Cath/COR/LV Percut Today Basic Metabolic Profile (BMP) Today Partial Thromboplast Time Today Prothrombin Time w/INR Today Echo Complete Today CBC W/Diff, Automated Today Chest PA and Lateral Today Lipid Profile Today Liver Profile Today Plan Detail Other Medications New: clopidogrel 300 mg po on Day 1 then 75 mg a day 75 mg PO DAILY 30 tabs 3RF metoprolol tartrate 25 mg PO BID 60 tabs 3RF Additional Comments Of note, her lipid levels will be checked. Ideally she will be on a statin therapy. Following her lipid levels consideration will be given as to which statin and which dose she can attempt and hopefully tolerate to improve her cardiovascular risks. Thank you for allowing me to participate in the care of your patient. Please don't hesitate to call if any issues arise. This note was generated using a voice recognition system and there may be incorrect words, spelling or punctuation that were not noted when reviewing the office note prior to saving. Follow Up 6 Months (PFM) Coding Level of Care Code Off vis,est,level 5 Diagnoses Atherosclerosis of [place] coronary artery of [place] heart without angina pectoris I25.10 ??[place] vs. transplanted heart: [place] heart Presence of stent in coronary artery Z95.5 Angina pectoris I20.9 Coding Level of Care Code Off vis,est,level 5 Diagnoses Atherosclerosis of [place] coronary artery of [place] heart without angina pectoris I25.10 ??[place] vs. transplanted heart: [place] heart Presence of stent in coronary artery Z95.5 Angina pectoris I20.9 Supplemental Info Supplemental Information Transthoracic echocardiogram: 10/06/2017 Interpretation Summary Normal LV size. Left ventricular systolic function is normal. The estimated ejection fraction is 60 %. Mild (1+) eccentric mitral valve insufficiency. Contrast injection was performed. Stress test: 10/07/2017 Stress protocol: Resting EKG demonstrates normal sinus rhythm with a rate of 61 bpm. Normal intervals are noted. Resting blood pressure is 108/66 mmHg. The patient exercised according to the regular Ramone protocol for a total duration of 10 minutes and 30 seconds completing 1 minute and 30 seconds into stage IV of the Ramone protocol. The maximum heart rate attained was 150 bpm which was 88% of the maximum predicted heart rate. The maximum workload attained was 12.5 metabolic equivalents. At rest there were no ST or T-wave changes noted suggest ischemia peak exercise nonspecific ST-T wave changes were noted with no meet the criteria for ischemia. No chest pain was noted the test was terminated due to fatigue. The resting blood pressure was 108/66 with a peak blood pressure 130/78. Rate pressure product was 17,800. Myocardial perfusion protocol. 11.1 mCi of technetium 99m sestamibi was injected at rest. The patient exercised according to regular Ramone protocol for 10 minutes and 30 seconds attaining 88% of the maximum predicted heart rate and a workload of 12.5 metabolic equivalents. At peak exercise 31.3 mCi of technetium 99m sestamibi was injected. Stress and resting images were reconstructed and compared in the short axis, vertical long, and horizontal long axis. Gated images were also obtained. Perfusion SPECT analysis: Review of the stress images demonstrate normal cardiac silhouette size. There is normal uptake of tracer noted on the stress images in all white of the myocardium especially involving the anterior wall. The resting images demonstrate a similar patent. There are no areas of reversibility noted suggest ischemia. No previous infarct is noted. Gated SPECT analysis: Gated ejection fraction is over 75%. Conclusion: Normal exercise myocardial perfusion stress test at a high workload. No clinical angina noted. Excellent functional capacity. Preserved ejection fraction. Cardiac catheterization: 03-08-16: [facility]: Posterobasal: Normal CORONARY FINDINGS * Left Main Coronary Artery The LMCA is normal. * Left Anterior Descending The LAD has a mid 90% stenosis. The 1st diagonal is normal. The small 2nd diagonal has a 70% proximal stenosis. The 3rd diagonal is normal. * Circumflex The Circumflex is non-dominant and is normal. The 1st CM is normal. * Right Coronary Artery The RCA Is a dominant vessel with a proximal 20% stenosis. The RPDA and RPL are normal. ADDITIONAL FINDINGS No aortic stenosis. No mitral regurgitation. COMPLICATIONS N one SUMMARY 1. LV pressure overload. 2. Normal LV systolic function. 3. 1 vessel CAD. 4. Successful implantation of 3.0/26 mm Resolute Integrity RON in mid LAD. Cardiac catheterization: 03-16-16: [facility] ? 50F s/p recent PCI to the LAD (02/27/16) presenting with chest pain LMT: Normal LAD: Patent stent, mild disease of the proximal segment of D2 unchanged from prior cath LCx: Normal RCA: 30% proximal lesion Impression: Patent stent, recommend medical therapy ADVERSE OUTCOME (s) /COMPLICATION (s) None Recommended Treatment: Medical Therapy. PCI: 03-08-16: [facility]: LAD PCI with a 3.0 x 26 mm Resolute Integrity drug-eluting stent Labs LDL Cholesterol 12 mg/dL (0-130) 10/06/17 HDL Cholesterol 53 mg/dL (40-) 10/06/17 Triglycerides 28 mg/dL (-199) 10/06/17 VLDL Cholesterol 6 mg/dL (5-40) 10/06/17 Diagnostics Electrocardiogram 02/09/19 Echocardiogram 10/06/17 Stress Test Nuclear Medicine 10/07/17 Stress Test 10/07/17 Chest X-Ray 10/06/17 02/09/19 [id number] <Electronically signed by Fracisco Thao MD> Date Fracisco Thao MD I have examined the patient the following changes are noted: Status post the patient's outpatient cardiovascular evaluation the patient was subsequently admitted to the [facility] for ongoing symptoms/concerns and objective findings of melena. She subsequently underwent evaluation by internal medicine and general surgery and was found to have evidence of a gastrointestinal bleeding process secondary to a peptic ulcer with associated clot -diagnosed by EGD-with subsequent medical therapy and also PRBC transfusion. She was followed in the hospital by internal medicine and general surgery and was thought to be able to remain on her antiplatelet therapy and proceed with her cardiovascular evaluation. Thus the patient presents this day for continued outpatient cardiovascular follow-up with diagnostic cardiac catheterization as previously discussed. The procedure and risks have been discussed with the patient and she is agreeable to this approach.
[2019-02-09 16:17] VITALS: BMI 21.6
[2019-02-11 21:13] VITALS: BMI 20.9
[2019-02-17 09:39] VITALS: BMI 21.6
[2019-02-18 08:09] LABS: Internal QC Validated? YES +Cl - CLEAR BKGD
[2019-02-18 08:10] LABS: Pregnancy, Serum, hCG Quali. NEGATIVE Negative
--- NOTE | 2019-02-18 09:43 | CL.D_ITS ---
Patient Name: DARIUS DUNBAR Study Date: 02/18/2019 Performing: Fracisco Thao MD Ht: 68.11 inches 173 cm : 1965 Wt: 141.1 lbs 64 kg Age: 53 Gender: female BSA: 1.76 PROCEDURE(S) PERFORMED [id number]/LV CLINICAL PROFILE AND INDICATIONS Indications: Suspected CAD Heart Failure: None Stress/Imaging Date: 10/07/2017Stress Test with SPECT MPI: Negative Angina Classification Anginal Classification w/in 2 Weeks: CCS III CAD Presentations: Other: Chest pain; shortness of breath CONCLUSIONS Elevated Left Ventricular End Diastolic Pressure Normal LV size, wall motion,and systolic function LVEF: by LV gram 65 % Double vessel CAD of the LAD and RCA LAD stent: patent RECOMMENDATIONS Medical therapy DESCRIPTION OF PROCEDURE The patient arrived to the procedure lab. The risks and benefits of the procedure as well as a full d escription of our services here and current unavailability of surgical backup were fully explained to the patient and/or their significant other prior to the catheterization. The Timeout was completed, verifying the correct patient and procedure. The patient's procedural site was prepped and draped in the usual fashion. Local anesthetic was given subcutaneously to right groin region with Lidocaine 2%. Using a modified Seldinger technique, arterial access was obtained via the right femoral artery, a 4 Fr sheath was inserted Left Coronary Artery selective angiography was performed in multiple views us ing a 4 Fr. JL5 catheter. Right Coronary Artery selective angiography was then performed in multiple views using a 4 Fr. 3DRC catheter. Left Ventriculography was performed in CANTU projection using a 4 Fr . Pigtail catheter. LV to AO pullback pressures were then recorded.The arterial sheath was pulled and manual compression applied until hemostasis is achieved. CORONARY ANGIOGRAPHY DOMINANCE: Right Dominant LEFT HEART ASSESSMENT Left Ventricular Ejection Fraction: by LV Gram 65 % Normal LV wall motion Elevated Left Ventricular End Diastolic Pressure LVEDP: 21 mmHg LEFT MAIN: Angiographically normal LEFT ANTERIOR DESCENDING ARTERY: Previously placed stent is patent CIRCUMFLEX ARTERY: Angiographically normal RIGHT CORONARY ARTERY: PROX RCA: eccentric: 10 - 25 % Stenosis AORTIC ROOT: Angiographically normal COMPLICATIONS No Complications PROCEDURE MEDICATIONS Versed 1 mg IV Oxygen: 2 L/min via nasal cannula SUMMARY OF HEMODYNAMIC DATA Time AIR REST ECG 07:44:36 AO 112/64 (86) SA 08:31:57 LV 120/-10, 20 08:38:57 LV 119/-11, 18 08:39:03 LV 119/-6, 21 08:39:45 LV 122/-8, 19 08:39:51 LVp 122/-9, 17 08:39:55 AOp 118/60 (85) 08:40:00 Signed By Fracisco Thao MD On 02/18/2019 09:42:12 Fracisco Thao MD
== END ==
LOC: CLSP 07:19
PROVIDERS: Family Provider Internal Medicine; PCP Internal Medicine; Referring Provider Internal Medicine Cardiovascular Disease; Visit Provider Internal Medicine Cardiovascular Disease
DX: I25.119 Atherosclerotic heart disease of native coronary artery with unspecified angina pectoris (principal); I34.0 Nonrheumatic mitral (valve) insufficiency; I50.1 Left ventricular failure, unspecified; Z95.5 Presence of coronary angioplasty implant and graft; Z79.82 Long term (current) use of aspirin; Z79.02 Long term (current) use of antithrombotics/antiplatelets; Z79.899 Other long term (current) drug therapy
CPT/HCPCS: 36415; 84703; 93458; 99152; 99153; J7040; C1769; Q9967

== ENCOUNTER 2019-04-22 06:56 | Day surgery (SDC) | payer OTHER, SELFPAY ==
[2019-03-18 07:44] VITALS: BMI 21.6
--- NOTE | 2019-03-18 07:49 | HP_ITS ---
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 Is patient in pain?: No Allergies No Known Allergies Allergy (Verified 03/18/19 07:43) Medications Aspirin [Adult Low Dose Aspirin EC] 81 mg PO DAILY 08/30/16 [History Confirmed 02/17/19] Pantoprazole Sodium [Protonix] 40 mg PO BID 02/17/19 [History Confirmed 02/17/19] Sucralfate [Carafate] 1 gm PO 4X/DAY 02/17/19 [History Confirmed 02/17/19] [facility] Medical History Atherosclerotic heart disease of [place] coronary artery without angina pectoris (Chronic) Chronic pain (Acute) Chest pain (Acute) CAD (coronary artery disease) (Inactive) Surgical History Presence of stent in coronary artery (Chronic ~02/27/16) History of esophagogastroduodenoscopy (EGD) (Acute) Presence of coronary angioplasty implant and graft (Chronic ~02/27/16) History of breast augmentation (Resolved) History of oophorectomy, unilateral (Resolved) Status post left heart catheterization (LHC) (Resolved ~02/18/19) S/P PTCA (percutaneous transluminal coronary angioplasty) (Inactive) Family History Mother Heart disease Social History (Updated 03/18/19 @ 07:50 by Remberto Espitia MD) Smoking Status: Never smoker alcohol intake: current details: occasional substance use type: does not use HPI HPI HPI: DARIUS DUNBAR, is a 53 F who presents to the office today for HPI HPI Surgical H&P: Yes HPI: DARIUS DUNBAR, is a 53 F who presents to the office today for Evaluation for endoscopy. Patient status post a hospitalization with an upper scope which was completed on 02/12/2019. Patient was noted to have a nonbleeding gastric ulcer with an adherent clot. H. pylori was negative and showed only chronic gastritis. She is no longer having any dark stools. Her abdominal pain is improved. She is actively taking her Carafate and proton pump inhibitor. In addition to her upper scope the patient also needs to have a colonoscopy for screening purposes only. ROS General General: Yes fatigue; no weight change, appetite, colon cancer, breast cancer or weakness HEENT HEENT: No difficulty swallowing, eye injury, eye surgery, swollen glands or hoarseness Endo Endocrine: No thyroid disease, diabetes mellitus, thyroid cancer, Hair loss, heat intolerance or cold intolerance Skin Skin: No rash or changing moles Breast Breast: No left breast lump, right breast lump, nipple discharge, breast pain, abnormal mammogram, abnormal US or breast enlargement Musc Musculoskeletal: No back problems, arthritis, rheumatoid arthritis, gout or joint pain Cardio Cardiovascular: No murmur, pacemaker, heart disease, atrial fibrillation, high blood pressure, heart attack, heart stent, palpitations, shortness of breat with exertion or chest pain Psych Psychiatric: No depression, anxiety or hearing voices Resp Respiratory: No shortness of breath, No sleep apnea, No cough, No COPD, No asthma, No emphysema, No wheezing Gastro Gastrointestinal: No abdominal pain, No nausea or vomiting, No diarrhea, No constipation, No blood in stool, No acid reflux, No hemorrhoids, No ulcers, No gallbladder problem, No black,tarry stools Julio Cesar Hematologic: No blood thinners, No blood disorders, No bleeding, No anemia, No blood clots Neuro Neurologic: No system reviewed and no additional complaints, except as docu, No as per HPI, No abnormal walking, No abnormal hearing, No abnormal movements, No abnormal speech, No behavioral changes, No burning sensations, No confusion, No seizure-like activity, No unsteadiness, No dizziness, No localized weakness, No frequent falls, No headache(s), No lack of coordination, No loss of vision, No memory loss, No numbness, No other visual disturbances, No radiating pain, No restless legs, No sensory deficit, No fainting, No tingling, No tremor(s), No weakness, No other Exam Const General: no acute distress, well developed, well hydrated Orientation: oriented to person, oriented to place, oriented to time [facility] Head: normocephalic, atraumatic Ears: external ears normal Mouth: moist mucous membranes Eyes Sclera: sclerae normal Pupils: normal by confrontation Neck Neck: no lymphadenopathy noted Neck mass: No Thyroid: thyroid normal, symmetrical Chest Chest palpation & inspection: normal inspection of the chest Breast Palpation: No nipple discharge Resp Effort & Inspection: normal respiratory effort Auscultation: clear to auscultation bilaterally Percussion: percussion normal Cardio Rate: regular rate Rhythm: regular rhythm Heart Sounds: no murmurs GI Palpation: soft, no hepatosplenomegaly, no masses, nontender Rectal Exam: other Other: Rectal exam deferred. Extrem General: normal to inspection, no clubbing, cyanosis or edema Assessment & Plan Problems 1. Acute gastric ulcer without hemorrhage or perforation K25.3 2. Encounter for screening colonoscopy Z12. Plan I have discussed the above with the patient. I have offered the patient colonoscopy as well as an esophagogastroduodenoscopy for evaluation. I have explained the risks/benefits of the procedure and described the procedure. I have discussed the risks with the patient, including but not limited to: infection, bleeding, perforation of the GI tract requiring emergency surgery, inability to complete the procedure, injury to any internal organs, complications of anesthesia, etc. - the patient understands and agrees to proceed. I have answered all the patient's questions to the patient's satisfaction and the patient has no further questions. The patient has been given instructions for the colon cleansing preparation. Given the fact that gastric ulcers or had an inherent clot on it I believe it is important for us to re-scope the patient to make sure that this is completely healed and did not and does not represent some form of malignancy. Coding Level of Care Code Off vis,est,level 3 Diagnoses Acute gastric ulcer without hemorrhage or perforation K25.3 ??Gastric ulcer chronicity: acute ??Gastric ulcer complication status: without hemorrhage or perforation Encounter for screening colonoscopy Z12.03/18/19 0750 <Electronically signed by Remberto malone MD> Date _ Remberto Espitia MD I have re-examined the patient. There are no clinical changes since date of exam.
--- NOTE | 2019-04-22 | IMM_PTH ---
PATIENT: DARIUS DUNBAR LOC: EN U#:[id number] AGE/SX: 53/F ROOM: RE04/22/[address]: Dr. Remberto Espitia MD : 1965 BED: DIS: 04/22/2019 SPEC #: [id number] RECD: 04/22/19 15:52 STATUS: SONU REVaishali #: [id number] AMBERLY: 04/22/19 00:[address]: Remberto Espitia DEPT: IMMUNOHISTOCHEMISTRY RECD BY: Weston Briscoe ENTERED: 04/22/19 15:52 SP TYPE: IMMUNO OTHR DR: DO Dr. Martir Valderrama MD Tissues: Gastric mucous membrane Procedures: H Pylori (initial) PHYSICIAN & INSTITUTION [place] [id number] SPECIMEN INFORMATION: Tissue Source: Antral biopsy Clinical Info: Nonbleeding ulcer, screening Specimen Number: [id number] CPT code: 86171 METHODOLOGY: Deparaffinized sections of prefer/formalin-fixed tissue or PAP/DQ stained slides are incubated with monoclonal/polyclonal antibodies/oligonucleotide probes. Localization is made via biotin free immunoperoxidase method. Appropriate controls are performed and reacted as expected. Results on target cell population are indicated in the following table: RESULTS: ANTIBODY / CLONE RESULT H Pylori (polyclonal) negative These tests were developed and their performance characteristics determined by [facility]. They may not have been cleared or approved by the U.S. Food and Drug Administration. The FDA has determined that such clearance or approval is not necessary. INTERPRETATION: Gastric antrum, biopsy: Negative for Helicobacter pylori organisms. AM:geneva 04/23/19
[2019-04-22 07:15] VITALS: BP 104/71; PULSE 65; RESP 16; TEMP 36.4; O2SAT 100; BMI 20.5
--- NOTE | 2019-04-22 08:00 | EGD_PTH ---
PATIENT: DARIUS DUNBAR LOC: EN U#:[id number] AGE/SX: 53/F ROOM: RE04/22/[address]: Dr. Remberto Espitia MD : 1965 BED: DIS: 04/22/2019 SPEC #: [id number] RECD: 04/22/19 11:23 STATUS: SONU VERITO #: [id number] AMBERLY: 04/22/19 08:[address]: Remberto Espitia DEPT: SURGICAL PATHOLOGY RECD BY: Meño Portillo ENTERED: 04/22/19 12:35 SP TYPE: EGD BIOPSY OTHR DR: DO Dr. Martir Valderrama MD Tissues: Gastric mucous membrane Procedures: Surgery Specimen Level IV HEADER OPERATION: Colonoscopy, EGD ([facility]) PRE-OP DIAGNOSIS: Follow up post nonbleeding ulcer, screening colonoscopy TISSUE SUBMITTED: Antral biopsy for H. pylori ad path MICROSCOPIC DIAGNOSIS Gastric antrum, biopsy: Minimal chronic inflammation. See comment. AM:geneva 04/23/19 COMMENT The results of immunohistochemistry for Helicobacter pylori will be reported separately ([id number]). MICROSCOPIC DESCRIPTION Slides are reviewed. GROSS DESCRIPTION Received in fixative is one container labeled with the patient's name and designated antral biopsy. The specimen consists of one irregular fragment of light lindsay soft tissue that measures 1 x 0.1 x 0.1 cm. The specimen is totally submitted in one cassette. / SJ:geneva 04/22/19 TC:3 CPT: 85226
[2019-04-22 08:29] VITALS: BP 104/71; BP 97/64; PULSE 70; RESP 16; TEMP 36.5; O2SAT 99
--- NOTE | 2019-04-22 08:32 | OP.ENDO_ITS ---
04/22/2019 Jose Girard [address] [id number] Re : Upper GI endoscopy procedure for Kyra Gibbons Dear Dr. Girard This procedure was performed on Monday, April 22, 2019. My impressions and recommendations are as follows: Impressions : - Normal esophagus. - Normal stomach. Biopsied. - Normal examined duodenum. No specimens collected. Recommendations : - Discharge patient to home. - Resume previous diet. - Continue present medications. - Await pathology results. - Repeat upper endoscopy PRN to assess disease activity. - Return to my office in 1 week. My findings are described in the full procedure note, which is enclosed. If I can be of further assistance, please feel free to contact me at Doctor phone number(s): , Fax: [phone], Work: . Sincerely, MD Remberto Robles MD 04/22/2019 8:31:58 AM This report has been signed electronically.
--- NOTE | 2019-04-22 08:33 | OP.ENDO_ITS ---
04/22/2019 Jose Girard [address] [id number] Re : Colonoscopy procedure for Kyra Gibbons Dear Dr. Girard This procedure was performed on Monday, April 22, 2019. My impressions and recommendations are as follows: Impressions : - The entire examined colon is normal on direct and retroflexion views. - No specimens collected. Recommendations : - Discharge patient to home. - Resume previous diet. - Continue present medications. - Await pathology results. - Repeat colonoscopy in 10 years for screening purposes. - Return to primary care physician in 1 week. My findings are described in the full procedure note, which is enclosed. If I can be of further assistance, please feel free to contact me at Doctor phone number(s): , Fax: [phone], Work: . Sincerely, MD Remberto Robles MD 04/22/2019 8:33:41 AM This report has been signed electronically.
[2019-04-22 08:35] VITALS: BP 101/65; BP 104/71; PULSE 70; RESP 16; O2SAT 100
[2019-04-22 08:40] VITALS: BP 104/71; BP 98/69; PULSE 65; RESP 16; O2SAT 100
[2019-04-22 08:45] VITALS: BP 104/71; BP 96/65; PULSE 65; RESP 16; TEMP 36.6; O2SAT 100
[2019-04-22 09:07] VITALS: BP 104/71
== END 2019-04-22 09:10 | disposition home or self-care (01) ==
LOC: EN 06:57 → AC 06:58
PROVIDERS: Family Provider Internal Medicine; PCP Student in an Organized Health Care Education/Training Program; Referring Provider Surgery; Visit Provider Surgery
PROC: 0DJD8ZZ Inspection of Lower Intestinal Tract, Via Natural or Artificial Opening Endoscopic (ICD-10-PCS; CPT 45378; principal; 2019-04-22 07:55)
DX: K25.3 Acute gastric ulcer without hemorrhage or perforation (principal); K29.50 Unspecified chronic gastritis without bleeding; Z12.11 Encounter for screening for malignant neoplasm of colon; I25.10 Atherosclerotic heart disease of native coronary artery without angina pectoris; Z95.5 Presence of coronary angioplasty implant and graft; Z79.82 Long term (current) use of aspirin
CPT/HCPCS: 43239; 45378; 88305; 88342; J7120; J2405

== ENCOUNTER 2020-03-09 12:21 | Emergency (ER) | payer OTHER, SELFPAY ==
[2020-03-09 12:22] VITALS: BP 123/71; PULSE 97; RESP 17; TEMP 36.9; O2SAT 95; BMI 19.5
--- NOTE | 2020-03-09 12:42 | RAD_ITS ---
STUDY: X-RAY - RIGHT FOOT CLINICAL: Female, 54 years old. FELL TODAY -- pain, lateral aspect foot TECHNIQUE: 3 view(s) of the foot. COMPARISON: None. FINDINGS: Normal talus, calcaneus, and tarsal bones. Normal visualized subtalar, talonavicular, calcaneocuboid, tarsal and tarsometatarsal articulations. Normal metatarsi. Normal metatarsophalangeal joint of the great toe. Normal tibial and fibular sesamoid bones. Normal interphalangeal joint of the great toe. Normal phalanges of the great toe. Normal second through fifth metatarsophalangeal joints. Normal interphalangeal joints and phalanges of the lesser toes. Soft tissue swelling overlying the fifth metatarsophalangeal joint. RAD/Foot min 3 Views IMPRESSION: Soft tissue swelling overlying the fifth metatarsophalangeal joint. Electronically Signed: Terence Reich, at 13:21 EDT , Service support ,
[2020-03-09] MEDS: oxyCODONE 5 MG Tablet PO (12:47)
--- NOTE | 2020-03-09 12:57 | ED.DCSUM_ITS ---
History of Present Illness Chief Complaint: Fall Informant: Patient Current Severity: Moderate Maximum Severity: Moderate Narrative: Patient sustained a mechanical fall after walking through a construction zone outside store. She tripped. She denies any head injury any neck pain any chest pain or any injury of the upper extremities her injuries are slight abrasion of the left knee and most of her pain is in the right foot laterally. Past Medical History - Allergies and Home Meds Allergies/Adverse Reactions: Allergies No Known Allergies Allergy (Verified 03/09/20 12:22) Primary Care Physician: Jose Girard DO [Primary Care Provider] - Past Medical History: - - Coronary artery disease status post PTCA x1, however she does not take any medications, she does not have hypertension or hypercholesterolemia Surgical History: angioplasty Smoking Status: Never smoker - Family History Maternal Family History: Family History (Last Reviewed 03/18/19 @ 07:[address] Rembreto Espitia MD) Mother Heart disease Family History: Reports: No pertinent history Review of Systems All systems negative except as indicated General: Reports: Fever, - - No head injury or loss of consciousness Eyes: Denies: Visual changes - bilaterally Cardiovascular: Denies: Chest pain Respiratory: Denies: Dyspnea Gastrointestinal: Denies: Abdominal pain, Nausea Musculoskeletal: Reports: - - Left knee abrasion, right foot lateral pain. Denies: Neck pain, Back pain Skin: Reports: Abrasions Neurological: Denies: Headache, Weakness Hematologic: Denies: Easy bruising, Easy bleeding Physical Exam Vital Signs/Narrative: Vital Signs Temp Pulse Resp BP Pulse Ox 03/09/20 12:22 98.4 F 97 17 123/71 H 95 Inital Vital Signs reviewed: Yes General: Well nourished, Well developed Eyes: Perrl, EOMI Neck: Supple, Nontender Cardiovascular: Regular rate Respiratory: No distress, CTA bilaterally, Chest nontender Abdomen: Soft, Nontender Back: Nontender, Normal Inspection Extremities: - - Small abrasion over the left knee, normal extensor mechanism, no effusion, no laxity. Right foot has significant tenderness over the proximal fifth metatarsal region, there is some swelling in that region. No ankle pain on the right. Skin: Normal color, - - Mild abrasion over the left patella Neurological: Normal Strength, Normal Sensation Diagnostic/Tx/Re-eval Right foot x-ray 3 view interpreted by me, normal alignment, no fracture noted. Normal x-ray - Medical Decision Making Patient has a normal x-ray of the foot, she does not meet criteria for x-ray of the knee I reassured her I will put her in a postop shoe and discharged in stable condition. ED Disposition - Plan for ED Patient: Disposition: Psychiatric Hospital or Unit Diagnosis: Fall, Right foot strain, Knee abrasion Instructions: ED Aircast Splint Boot Inf Td, ED Abrasion Prescriptions: Hydrocodone Bitart/Apap 5-325 [[place] 5MG-325MG] 1 tablet PO Q4H PRN PRN 2 Days #10 tablet PRN Reason: Pain Transmission Status: Received by [id number] Referrals: Jose Girard DO [Primary Care Provider] - 3-5 Days
== END 2020-03-09 14:00 | disposition home or self-care (01) ==
LOC: ED 13:24
PROVIDERS: Emergency Provider Emergency Medicine; PCP Student in an Organized Health Care Education/Training Program
DX: S96.911A Strain of unspecified muscle and tendon at ankle and foot level, right foot, initial encounter (principal); S80.212A Abrasion, left knee, initial encounter; I25.10 Atherosclerotic heart disease of native coronary artery without angina pectoris; W19.XXXA Unspecified fall, initial encounter
CPT/HCPCS: 73630; 99283

== ENCOUNTER 2020-12-19 18:15 | Emergency (ER) | payer OTHER, SELFPAY ==
[2020-12-19 18:15] VITALS: BP 132/83; PULSE 106; RESP 16; TEMP 35.4; O2SAT 98; BMI 20.4
--- NOTE | 2020-12-19 19:37 | CT_ITS ---
STUDY: CT ABDOMEN AND PELVIS WITH CONTRAST REASON FOR EXAM: Female, 55 years old. Lower abd pain (suprapubic mainly) RADIATION DOSAGE (If Supplied By Facility): CTDIvol = ( 16.33 ) mGy, DLP = ( 319.76 ) mGycm TECHNIQUE: Transaxial images were obtained from the dome of the diaphragm to the symphysis pubis without oral contrast. IV 100mL Isovue-300 was administered. Sagittal and coronal images were reconstructed. Individualized dose optimization techniques were used for this CT. COMPARISON: CT of the chest dated 02/11/2019 FINDINGS: The visualized lung bases are unremarkable. The visualized portions of the heart are within normal limits. There are bilateral breast implants in place. Normal liver. Normal gallbladder and extrahepatic biliary system. There are benign calcified granulomata of the spleen. Normal pancreas. Normal bilateral adrenal glands. There are too small to characterize low-attenuation foci within the kidneys which may reflect cysts. Normal visualized stomach. Normal small intestine. The colon is incompletely distended. There is mild colonic wall thickening. There is non-visualization of the appendix. Normal abdominal aorta. Normal inferior vena cava. Normal retroperitoneum. Normal urinary bladder. There is minimal free fluid within the pelvis. Normal abdominal wall. Normal osseous structures. CT/Abdomen/Pelvis W IV Cont ONLY IMPRESSION: Colonic wall thickening, this may be partially secondary to its incompletely distended state however cannot exclude mild colitis. Electronically Signed: Rylee Duenas MD at 20:46 EDT Tel , Service support ,
--- NOTE | 2020-12-19 19:39 | ED.VISSUMM ---
- ER Visit Summary Date of Service: 12/19/20 Chief Complaint: Abdominal pain History of Present Illness: The patient is a 55 F who CAD with cardiac stent chronic pain migraine headaches. Prior appendectomy left oophorectomy cardiac stents and breast augmentation. Patient states that around 1130 this morning started having diffuse abdominal pain primarily suprapubic. Nausea and dry heaves. No melena. No BM today. No dysuria. No fever. She has had a prior bowel obstruction. Physical Examination: Well-appearing middle-aged female brought in by her . Vital signs are stable. HEENT exam markable. Moist mucous membranes. Neck nontender no lymphadenopathy. Lungs clear to auscultation bilaterally. Heart regular rhythm rate about 100 no murmur. Abdomen soft. Nondistended. Normal bowel sounds. No peritoneal signs. Mildly tender suprapubically. No organomegaly or masses. No signs of obstruction. No tympany. Right upper and right lower quadrants are unremarkable. Well-healed old prior midline surgical incision. Extremities moves all 4. No edema. Neurovascularly intact. Neurologically she is awake and alert with no focal motor deficits. Test Results: CBC normal white count of 7 hemoglobin 13. No bands. Chemistries normal normal creatinine and gap. Liver enzymes normal lipase normal. UA normal. Lactate normal 0.9. CAT scan of the abdomen pelvis with IV contrast only shows colonic wall thickening secondary to limited distention. No bowel obstruction. No perforation. This is read by the radiologist and reviewed by me. No acute cause for her pain. Repeat exam the patient is doing well at 20 1:48 PM. Abdomen is benign. Again no signs of obstruction. She and I and her discussed her test results. They are comfortable with her being discharged to home. She will do outpatient follow-up. Emergency Department Course and Treatment: Middle aged female with lower abdominal pain. CAT scan and labs are pending. Clinically this does not appear to be a bowel obstruction. She will be given IV fluids IV Dilaudid for pain. Treatment Plan: Protonix daily for 2 weeks. Follow-up with your doctor if not improving. Return if worse. Disposition: Discharge Impression: Acute abdominal pain of uncertain etiology This note was generated with [employer] software. It may contain incorrect words, spelling, and punctuation that were not noted in review of the chart prior to signing ED Disposition - Plan for ED Patient: Referrals: Jose Girard DO [Primary Care Provider] -
[2020-12-19] MEDS: 0.9% Normal Saline 1,000 ML 1000 ML IV (19:57)
[2020-12-19] MEDS: HYDROmorphone 1 MG/ML Syringe IV (19:57)
[2020-12-19] MEDS: Ondansetron 4 MG/2 ML Vial IV (19:57)
[2020-12-19 20:04] LABS: ALB/GLOB Ratio 1.3 RATIO (0.9-2.4); AST(SGOT) 18 U/L (15-37); Alanine Aminotransfer ALT/SGPT 18 U/L (13-56); Alkaline Phosphatase 95 U/L (45-117); Amylase 57 U/L (25-115); Anion Gap 4 (5-15); BUN 16 mg/dL (7-18); BUN/Creat Ratio 16.4 RATIO (10-20); Calcium,Total 8.9 mg/dL (8.5-10.1); Chloride 113 mmol/L (98-107); Creatinine, Serum 0.97 mg/dL (0.55-1.02); EST Glomerular Filtration Rate 63 mL/min (>60); Est Glom Filt Rate - Afr Amer 76 mL/min (>60); Estimated Creatinine Clearance 61.14 ml/min; Globulin 3.1 g/dL (2.2-4.2); Glucose 117 mg/dL (74-106); Lipase 60 U/L (73-393); Protein, Total 7.1 g/dL (6.4-8.2); Sodium Level 138 mmol/L (136-145)
[2020-12-19 20:13] LABS: Absolute Lymphocyte Count 0.43 X10^3/uL (0.83-4.51); Absolute Neutrophil Count 6.6 X10^3/uL (2.0-7.7); Basophil# 0.03 X10^3/uL; Basophil% 0.4 % (0-1); Eosinophil# 0.11 X10^3/uL; Eosinophils% 1.5 % (0-5); Hematocrit 40.2 % (37-47); Hemoglobin 13.3 g/dL (12.0-15.0); Lymphocyte # 0.43 X10^3/ul (4.0); Lymphocyte % 5.8 % (19-41); Mean Corp Hgb Conc 33.1 g/dL (32-36); Mean Corpuscular Hgb 32.5 pg (27.0-32.0); Mean Corpuscular Volume 98.3 fL (81-99); Mean Platelet Vol. 10.2 fl (6.2-12.0); Monocyte# 0.24 X10^3/uL; Monocyte% 3.2 % (0-10); NRBC Flagged by Analyzer 0 % (0-5); Neutrophil # 6.56 X10^3/uL (2.7-7.7); Neutrophil % 88.8 % (47-70); POSITIVE DIFFERENTIAL YES; Platelet Count 165 K/mm3 (150-450); RBC Distribution Width CV 12.1 % (11.6-14.6); RBC Distribution Width SD 43.7 fl (35.1-43.9); Red Blood Count 4.09 M/mm3 (4.2-5.4); White Blood Count 7.4 K/mm3 (4.4-11.0)
[2020-12-19 20:14] LABS: Bacteria 0 SEEN /hpf (None Seen); Mucous, Urine 0 SEEN /hpf (<or=2+); Red Blood Cells-Urine 0 SEEN /hpf (0-5); Squamous Epithelial Cells - UA 0 SEEN /hpf (5-10); White Blood Cells 0 SEEN /hpf (0-5)
[2020-12-19 20:24] LABS: Differential Indicated SCAN CRITERIA MET
[2020-12-19 20:30] LABS: Glucose, Dipstick Normal (Normal); Ketone-Dipstick 5 mg/dl (Negative); Leukocyte Esterase-Dipstick Negative /ul (Negative); Nitrite-Dipstick Negative (Negative); Occult Blood-Urine Negative /ul (Negative); Protein-Dipstick Negative (Negative); Specific Gravity, Urine 1.005 (1.002-1.030); Urine Bilirubin Dipstick Negative (Negative); Urine Urobilinogen Normal (Normal); Urine pH 6.5 (5.0 - 8.0)
[2020-12-19 20:33] LABS: Color, Urine Yellow (Yellow); Urine Clarity Clear (Clear)
[2020-12-19 20:45] LABS: Lactic Acid 0.9 mmol/L (0.4-1.9)
[2020-12-19 20:54] LABS: Differential Comment SCANNED
[2020-12-19 21:00] VITALS: BP 135/82; PULSE 91; RESP 18; O2SAT 98
--- NOTE | 2020-12-19 21:59 | ED.DEP ---
ED Disposition - Plan for ED Patient: Disposition: Home or Assisted Living Instructions: ED Abdominal Pain Unkn Cause Fem Prescriptions: Pantoprazole Sodium [Protonix] 40 mg PO DAILY #14 tab Prescription Printed Referrals: Jose Girard DO [Primary Care Provider] - 3-5 Days if not improving Additional Instructions: Your labs and CAT scan tonight were unremarkable. There are currently no signs of bowel obstruction. Protonix daily in case this is either gastritis or an early ulcer. There are no signs of a bleeding ulcer at this time. Follow-up with your doctor if you are not improving or return if you are feeling worse.
== END 2020-12-19 22:15 | disposition home or self-care (01) ==
PROVIDERS: Emergency Provider Emergency Medicine; PCP Student in an Organized Health Care Education/Training Program
DX: R10.9 Unspecified abdominal pain (principal); I25.10 Atherosclerotic heart disease of native coronary artery without angina pectoris; Z95.5 Presence of coronary angioplasty implant and graft
CPT/HCPCS: 74177; 80053; 81001; 82150; 83605; 83690; 85025; 96374; 96375; 99282; J7030; Q9967; A4216; J2405

== ENCOUNTER 2022-07-15 10:47 | Emergency (ER) | payer OTHER, SELFPAY ==
[2022-07-15 10:48] VITALS: BP 91/74; PULSE 108; RESP 18; TEMP 38.1; O2SAT 98; BMI 18.9
--- NOTE | 2022-07-15 10:59 | EDS_ITS ---
HPI History of Present Illness Chief Complaint: General Illness Informant: patient Onset/Context/Timing Onset: Days (3) Context: Gradual Onset Timing: Continuous Quality: Aching, fatigue Location: Generalized Worsened by: Nothing Relieved by: Nothing Narrative Narrative: Patient presents with abdominal pain, body aches, and sore throat that has been getting worse over the last 3 days. Patient states she took a home COVID test which was positive. Patient states she called the physician who was covering for her primary care physician and was referred to the emergency department. Patient admits to some generalized aching and fatigue. Patient states her symptoms have been getting progressively worse over the last 3 days. Patient also admits to some rhinorrhea and a cough. Patient denies any shortness of breath. [facility] Medical History Atherosclerotic heart disease of [place] coronary artery without angina pectoris CAD (coronary artery disease) CAD (coronary artery disease) Chest pain Chronic pain Melena Home Medications rimegepant 75 mg disintegrating tablet 75 mg PO .COMPLEX PRN 06/19/22 [History Last Taken Unknown] topiramate 50 mg tablet 50 mg PO BID 06/19/22 [History Last Taken Unknown] aspirin 81 mg tablet,delayed release 81 mg PO DAILY #1 TAB 06/22/22 [Rx Last Taken Unknown] butalbital 50 mg-acetaminophen 325 mg-caffeine 40 mg-codeine 30 mg cap 1 cap PO Q4H PRN 06/22/22 [History Last Taken Unknown] promethazine 25 mg tablet 25 mg PO TID PRN 06/22/22 [History Last Taken Unknown] nirmatrelvir 300 mg (150 mg x2)-ritonavir 100 mg tablet,dose pack(EUA) (Paxlovid) See Rx Instructions PO .COMPLEX #30 tabs 07/15/22 [Rx Last Taken Unknown] Allergy/AdvReac Type Severity Reaction Status Date / Time No Known Allergies Allergy Verified 07/15/22 10:48 Family History Mother Heart disease Surgical History History of breast augmentation History of esophagogastroduodenoscopy (EGD) History of oophorectomy, unilateral Presence of coronary angioplasty implant and graft (~06/06/16) Presence of stent in coronary artery (~02/27/16) S/P PTCA (percutaneous transluminal coronary angioplasty) Status post left heart catheterization (LHC) (~02/18/19) Social History Smoking Status: Never smoker alcohol intake: current details: occasional substance use type: does not use ROS ROS ED Constitutional Constitutional ED: Reports chills and fever(s) Eyes Eyes: Denies blurry vision or change in vision ENT ENT ED: Reports rhinorrhea and sore throat Cardiovascular Cardiovascular: Denies chest pain or palpitations Respiratory/Chest Respiratory/Chest: Reports cough; Denies dyspnea Gastrointestinal Gastrointestinal: Reports abdominal pain, diarrhea and nausea; Denies vomiting Genitourinary Genitourinary ED: Denies dysuria or hematuria Musculoskeletal Musculoskeletal: Reports back pain, myalgias and neck pain Integumentary Denies abscess or rash Neurologic Neurologic: Denies headache(s) or weakness Allergic/Immunologic Allergic/Immunologic ED: Denies mouth swelling or urticaria EXAM Physical Exam Const Vital Signs: 07/15/22 10:48 07/15/22 11:19 07/15/22 11:20 Temperature 100.6 F H 100.6 F H Temperature Source Temporal Temporal Pulse Rate 108 H 108 H Respiratory Rate 18 18 Respiratory Effort Normal Non-Labored Respiratory Pattern Normal Blood Pressure 91/74 91/74 Blood Pressure Mean 79 79 Pulse Ox 98 98 Oxygen Delivery Method Room Air Room Air 07/15/22 12:00 Temperature 99.9 F H Temperature Source Oral Pulse Rate 85 Respiratory Rate 18 Respiratory Effort Respiratory Pattern Blood Pressure 102/70 Blood Pressure Mean 80 Pulse Ox 98 Oxygen Delivery Method Room Air Positive well nourished and well developed General Appearance ED: well developed and NAD HEENT Reports moist mucous membranes Neck supple and no JVD Resp normal respiratory effort and clear to auscultation bilaterally Cardio regular rate, regular rhythm and no murmurs GI normal to inspection, nondistended, normoactive bowel sounds and non-tender Palpation: soft Extremity normal to inspection General Extremety ED: Negative for edema or tenderness General Extremity: Negative for edema Neuro oriented x3, CN's II-XII intact bilaterally and no sensory deficits noted Sensorium / Orientation: alert Motor Exam: strength 5/5 throughout Psych mental status grossly normal Skin no rashes or lesions noted MDM MDM MDM Narrative Medical decision making narrative: EKG was obtained. On my interpretation, it showed a normal sinus rhythm with a rate of 86. [place] interval, QRS interval, and QTc intervals were all normal. [place] was normal. There are nonspecific ST-T wave changes. PA and lateral chest x- ray was obtained. There are 2 views. On my interpretation, lung [place] are clear. There is normal cardiac silhouette. Bony thorax is normal. There is no acute process noted. Radiologist also interpreted the x-ray and agrees. CBC was within normal limits. Comprehensive metabolic profile was within normal limits. High-sensitivity troponin was normal at 5. Urinalysis shows leukocyte esterase of 100 with positive nitrites. There is 2+ bacteria. There is 0 white blood cells noted. Urine culture was ordered. Since the patient tested positiv e for COVID at home, patient was given a prescription for Paxlovid. Patient was instructed to continue Tylenol and ibuprofen as needed for any fevers or chills. Patient was instructed to follow-up with her primary care physician in 3 to 5 days. Patient understood and was agreeable with the plan. All questions were answered. Lab Data Attestation: I reviewed the patient's lab results. Labs: Laboratory Results - last 24 hr 07/15/22 07/15/22 07/15/22 11:33 11:33 11:57 WBC 5.5 RBC 4.04 L Hgb 13.1 Hct 39.6 MCV 98.0 MCH 32.4 H MCHC 33.1 RDW Std Deviation 44.3 H RDW Coeff of [place] 12.1 Plt Count 150 MPV 10.5 Immature Gran % (Auto) 0.200 Neut % (Auto) 70.8 H Lymph % (Auto) 16.3 L [place] % (Auto) 12.3 H Eos % (Auto) 0.2 Baso % (Auto) 0.2 Absolute Neuts (auto) 3.9 Absolute Lymphs (auto) 0.89 Nucleated RBC % 0 Sodium 142 Potassium 3.5 Chloride 110 H Carbon Dioxide 24.0 Anion Gap 8 BUN 11 Creatinine 0.86 Estim Creat Clear Calc 65.07 Est GFR (MDRD) Af Amer 87 Est GFR (MDRD) Non-Af 72 BUN/Creatinine Ratio 12.8 Glucose 110 H Calcium 8.5 Total Bilirubin 0.30 AST 20 ALT 28 Alkaline Phosphatase 89 Troponin I High Sens 5 Total Protein 6.7 Albumin 4.0 Globulin 2.7 Albumin/Globulin Ratio 1.5 Urine Color Yellow Urine Clarity Clear Urine pH 8.0 Ur Specific [place] 1.010 Urine Protein 15 H Urine Glucose (UA) Normal Urine Ketones 15 H Urine Occult Blood 10 H Urine Nitrite Positive H Urine Bilirubin Negative Urine Urobilinogen Normal Ur Leukocyte Esterase 100 H Urine RBC 0 SEEN Urine WBC 0 SEEN Ur Squamous Epith Cells 0 SEEN Urine Bacteria 2+ Urine Mucus 0 SEEN Radiography Chest X-Ray - ED: 2 View, Read by ED Physician, Read by Radiologist and No Acute Disease Diagnostic Testing: Clinical Impression(s) from Imaging Studies Chest X-Ray 07/15/22 11:38 IMPRESSION: Normal x-ray examination of the chest. Electronically Signed: Cole Hall MD at 11:53 EDT , EKG Initial EKG: Attestation: I personally reviewed and interpreted this EKG as follows: Interpretation: Sinus Rhythm (86) and Non-Specific ST Changes Prior EKG tracings: available for review Prior: Unchanged (06/22/2022) Discharge Plan Triage Chief Complaint: General Illness ED Provider: Filemon Jung Dx/Rx/DC Orders Clinical Impression: COVID-19 Instructions: Coronavirus Disease 2019 (COVID-19): Caring for Yourself or Others Prescriptions: New Paxlovid (EUA) 300 mg (150 mg x 2)-100 mg tablets,dose pack See Rx Instructions .ROUTE .COMPLEX Qty: 30 0RF Rx Instructions: take TWO 150 mg tablets of nirmatrelvir with ONE 100 mg tablet of ritonavir twice daily for 5 days Held fkbtbsyorb-zuxlfgtrrd-rqz-cod [id number] mg capsule 1 cap PO Q4H PRN Hold Instructions: Resume on 07/26/22. Do not take any of this medication while you are on the Paxlovid. rimegepant 75 mg tablet,disintegrating 75 mg PO .COMPLEX PRN Hold Instructions: Resume on 07/25/22. Do not take any of this medicine while you are on the Paxlovid. Rx Instructions: 75 mg orally take 1 tab at onset of SUN PRN; as a single dose No Action promethazine 25 mg tablet 25 mg PO TID PRN aspirin 81 mg tablet,delayed release (DR/EC) 81 mg PO DAILY Qty: 1 0RF topiramate 50 mg tablet 50 mg PO BID Primary Care Provider: Jose Girard Referrals: Jose Girard DO [Primary Care Provider] - 3-5 Days Disposition Disposition: Home, Self Care
[2022-07-15 11:19] VITALS: BP 91/74; PULSE 108; RESP 18; TEMP 38.1; O2SAT 98
--- NOTE | 2022-07-15 11:19 | EKG12_ITS ---
Test Reason : Blood Pressure : / mmHG Vent. Rate : 086 BPM Atrial Rate : 086 BPM P-R Int : 140 ms QRS Dur : 092 ms QT Int : 346 ms P-R-T Axes : 080 088 049 degrees QTc Int : 414 ms Normal sinus rhythm Biatrial enlargement Nonspecific ST abnormality Abnormal ECG Confirmed by MICHAEL MCGREGOR, DORINA ([id number]), acquisition editor ANTONIETA BARBOSA ([id number]) on 07/16/2022 9:51:32 AM Referred By: PARAMJIT Confirmed By:DORINA RODRIGUEZ MD
[2022-07-15] MEDS: 0.9% Normal Saline 1,000 ML 1000 ML IV (11:30)
[2022-07-15] MEDS: Acetaminophen 500 MG Tablet 1000 MG PO (11:30)
--- NOTE | 2022-07-15 11:38 | RAD_ITS ---
STUDY: X-RAY CHEST REASON FOR EXAM: Female, 56 years old. Fever TECHNIQUE: PA and lateral views of the chest. COMPARISON: 02/12/2019 FINDINGS: EKG leads overlie the chest The lungs are clear and expanded. There is no demonstrated pleural abnormality. Normal size heart. Normal mediastinum and tad. Normal visualized pulmonary arteries. Normal visualized aortic arch and descending thoracic aorta. Normal visualized thoracic spine. Normal visualized ribs, clavicles, and shoulders. There is no demonstrated abnormality of the visualized soft tissue structures of the upper abdomen. RAD/Chest PA and Lateral IMPRESSION: Normal x-ray examination of the chest. Electronically Signed: Cole Hall MD at 11:53 EDT ,
[2022-07-15 11:56] LABS: Absolute Lymphocyte Count 0.89 X10^3/uL (0.83-4.51); Absolute Neutrophil Count 3.9 X10^3/uL (2.0-7.7); Basophil# 0.01 X10^3/uL; Basophil% 0.2 % (0-1); Eosinophil# 0.01 X10^3/uL; Eosinophils% 0.2 % (0-5); Hematocrit 39.6 % (37-47); Hemoglobin 13.1 g/dL (12.0-15.0); Lymphocyte # 0.89 X10^3/ul (0.83-4.51); Lymphocyte % 16.3 % (19-41); Mean Corp Hgb Conc 33.1 g/dL (32-36); Mean Corpuscular Hgb 32.4 pg (27.0-32.0); Mean Platelet Vol. 10.5 fl (6.2-12.0); Monocyte# 0.67 X10^3/uL; Monocyte% 12.3 % (0-10); NRBC Flagged by Analyzer 0 % (0-5); Neutrophil # 3.87 X10^3/uL (2.7-7.7); Neutrophil % 70.8 % (47-70); Platelet Count 150 K/mm3 (150-450); RBC Distribution Width CV 12.1 % (11.6-14.6); RBC Distribution Width SD 44.3 fl (35.1-43.9); Red Blood Count 4.04 M/mm3 (4.2-5.4); White Blood Count 5.5 K/mm3 (4.4-11.0)
[2022-07-15 12:00] VITALS: BP 102/70; PULSE 85; RESP 18; TEMP 37.7; O2SAT 98
[2022-07-15 12:05] LABS: Mucous, Urine 0 SEEN /hpf (<or=2+); Red Blood Cells-Urine 0 SEEN /hpf (0-5); Squamous Epithelial Cells - UA 0 SEEN /hpf (5-10); White Blood Cells 0 SEEN /hpf (0-5)
[2022-07-15 12:09] LABS: Color, Urine Yellow (Yellow); Glucose, Dipstick Normal (Normal); Ketone-Dipstick 15 mg/dl (Negative); Leukocyte Esterase-Dipstick 100 /ul (Negative); Nitrite-Dipstick Positive (Negative); Occult Blood-Urine 10 /ul (Negative); Protein-Dipstick 15 mg/dl (Negative); Urine Bilirubin Dipstick Negative (Negative); Urine Clarity Clear (Clear); Urine Urobilinogen Normal (Normal)
[2022-07-15 12:10] LABS: ALB/GLOB Ratio 1.5 RATIO (0.9-2.4); AST(SGOT) 20 U/L (15-37); Alanine Aminotransfer ALT/SGPT 28 U/L (13-56); Alkaline Phosphatase 89 U/L (45-117); Anion Gap 8 (5-15); BUN 11 mg/dL (7-18); BUN/Creat Ratio 12.8 RATIO (10-20); Calcium,Total 8.5 mg/dL (8.5-10.1); Chloride 110 mmol/L (98-107); Creatinine, Serum 0.86 mg/dL (0.55-1.02); EST Glomerular Filtration Rate 72 mL/min (>60); Est Glom Filt Rate - Afr Amer 87 mL/min (>60); Estimated Creatinine Clearance 65.07 ml/min; Globulin 2.7 g/dL (2.2-4.2); Glucose 110 mg/dL (74-106); Potassium 3.5 mmol/L (3.5-5.1); Protein, Total 6.7 g/dL (6.4-8.2); Sodium Level 142 mmol/L (136-145); Troponin-I HS 5 pg/mL (3.0-54.0)
[2022-07-15 12:24] LABS: Bacteria 2+ /hpf (None Seen)
[2022-07-15 13:00] VITALS: BP 90/56; PULSE 75; RESP 17; TEMP 37.5; O2SAT 96
== END 2022-07-15 13:45 | disposition home or self-care (01) ==
PROVIDERS: Emergency Provider Emergency Medicine; PCP Student in an Organized Health Care Education/Training Program; Visit Provider Emergency Medicine
DX: U07.1 COVID-19 (principal); I25.10 Atherosclerotic heart disease of native coronary artery without angina pectoris; Z95.5 Presence of coronary angioplasty implant and graft
CPT/HCPCS: 71046; 80053; 81001; 84484; 85025; 87077; 87086; 87088; 87186; 93005; 96360; 96361; 99285; J7030